=== PATIENT | male | born 1955 | race Caucasian/White ===

== ENCOUNTER 2019-12-15 13:00 | Inpatient (IN) | payer OTHER, MEDICARE, SELFPAY ==
[2019-12-15] VITALS (7 sets, daily range): BP systolic 117–141; BP diastolic 61–83; PULSE 20–100; RESP 15–20; TEMP 36.7–38.2; O2SAT 95–99
--- NOTE | ~2019-12-15 | XR_ITS ---
EXAMINATION: XR chest 2V DATE: 12/17/2019 13:39 INDICATION: Shortness of breath. TECHNIQUE: Frontal and lateral views of the chest were obtained. COMPARISON: Chest single view 04/11/2011 FINDINGS: There is a diffuse interstitial pattern in the lungs, consistent with mild pulmonary edema. There is a small left pleural effusion. No pneumothorax. The heart size is normal. Median sternotomy wires and mediastinal surgical clips are seen, likely from prior coronary artery bypass grafting. IMPRESSION: 1. Mild pulmonary edema. 2. Small left pleural effusion. Reviewed, dictated and finalized at location B. [place] WAREHOUSE SUPERVISOR
--- NOTE | ~2019-12-15 | XR_ITS ---
EXAMINATION: XR foot RT min 3V DATE: 12/15/2019 14:23 INDICATION: Right foot pain and swelling, diabetic TECHNIQUE: Dorsoplantar, lateral, and 2 oblique views of the right foot were obtained. COMPARISON: None. FINDINGS: Bone alignment is normal. There is no fracture. There is mild osteoarthritis in the midfoot and at several interphalangeal joints. Plantar and Achilles enthesophytes are noted. The soft tissue s are unremarkable. IMPRESSION: 1. No acute osseous abnormality. Reviewed, dictated and finalized at location A. NSED MIDWIFE
--- NOTE | ~2019-12-15 | CT_ITS ---
EXAMINATION: CT foot RT w con EXAM DATE: 12/18/2019 13:00 INDICATION: Diabetic foot ulcer. TECHNIQUE: Spiral CT foot RT w con was performed following intravenous injection of 100 mL Omnipaque 350. Axial, coronal and sagittal images were reviewed. The dose-length product (DLP) for this exami nation was 409.52 mGy-cm. The exposure was tailored according to patient size (auto mA exposure cont rol), and iterative reconstruction (ASIR) was used as additional dose reduction technique. Correlatio n is made to X-ray 12/15/2019 FINDINGS: Distal most aspects of the right first-third toes were collimated off the examination as fo llows; the right first and third joy, the second distal phalanx. These did appear normal on the x-r ay obtained 2 days earlier but patient can be brought down to repeat scan if requested. There are no bony erosions identified. There are no acute fractures identified. There is mild polyart icular primary osteoarthritis. Other mild degenerative changes. No subcutaneous gas or radiopaque fo reign bodies. Edema over the entire foot without focal abscess. No evidence of venous thrombosis. IMPRESSION: Diffuse right foot edema without abscess or bony erosions. Reviewed, dictated and finalized at location A. GENERATION SPECIALIST
--- NOTE | 2019-12-15 13:49 | ED.WOUNDLAC ---
HPI - Wound/Laceration General Chief Complaint: Wound/Laceration Stated Complaint: R FOOT INFECTION, DIABETIC Time Seen by Provider: 12/15/19 13:45 Source: patient and RN notes reviewed Mode of arrival: ambulatory Limitations: no limitations History of Present Illness HPI narrative: Pt is a 64 y/o male with a Hx of DM and peripheral neuropathy, who presents to the ED with c/o wound on his rt foot. He notes that he first noticed swelling and erythema around his rt foot earlier today. Pt reports an associated fever, but denies any CP, SOB, or lightheadedness. He notes that he is unsure of what his BS has been recently running. Location: other (rt foot) Extremity Location: Right: foot Associated symptoms: pain (pain around rt foot) Related Data Home Medications Medication Instructions Recorded Confirmed metformin 1,000 mg PO BID 12/15/19 Allergies Allergy/AdvReac Type Severity Reaction Status Date / Time No Known Allergies Allergy Mild Verified 12/15/19 15:07 Review of Systems Review of Systems: All systems reviewed & are unremarkable except as noted in HPI and below Cardiovascular: Cardiovascular: Denies chest pain Respiratory: Respiratory: Denies dyspnea Integumentary/Breasts: Skin/Breast: Reports erythema (around rt foot), Reports skin swelling (rt foot) and Reports wounds (wound on rt foot) Neurologic: Denies other (lightheadedness) PMFSH Past Medical History Medical History (Updated 12/15/19 @ 15:46 by Will Rodriguez MD) Anxiety Arthritis CAD (coronary artery disease) Depression Diabetes Heart attack Peripheral neuropathy Right arm fracture Social History Social History Alcohol intake: current Comments PCP is Dr. More. Exam Const: General: healthy appearing, no acute distress and alert Nutritional Appearance: well nourished Orientation/consciousness: patient oriented x3 HENMT: Head: normal to inspection Resp: Effort & Inspection: normal respiratory effort Auscultation: clear to auscultation bilaterally Cardio: Rate: regular rate Rhythm: regular rhythm GI: GI Palp: Yes Soft to palpation and No Tenderness to palpation present (GI) Neuro: General: patient oriented x3 and moves all extremities Speech: normal speech Other: Decreased sensation in feet bilaterally Extrem: Other: diffuse swelling in right foot most severe with erythema and induration over the lateral aspect. minimal plantar wound. No drainage. Trace edema in right lower leg Course Consultations Consultation #1: Discussed case with HEAD OF DIGITAL ADVERTISING & INTEGRATION to Hospitalist, Marisa Manzano. Advised to consult with Dr. Rodriguez. Date: 12/15/19 Time: 15:05 Consultation #2: Discussed case with general surgeon, Dr. Rodriguez. He will see the pt as a consult. Date: 12/15/19 Time: 15:13 Vital Signs Vital signs: Vital Signs Temperature 38.2 C H 12/15/19 13:24 Pulse Rate 20 L 12/15/19 13:24 Respiratory Rate 16 12/15/19 13:24 Blood Pressure 141/79 H 12/15/19 13:24 Pulse Oximetry 99 12/15/19 13:24 Temperature 37.2 C 12/15/19 15:00 Pulse Rate 97 12/15/19 15:00 Respiratory Rate 135 H 12/15/19 15:00 Blood Pressure 135/63 12/15/19 15:00 Pulse Oximetry 97 12/15/19 15:00 MDM - Wound/Laceration Lab Data Result diagrams: 12/15/19 14:17 12/15/19 14:17 Labs: Lab Results 12/15/19 12/15/19 12/15/19 Range/Units 14:17 14:17 14:17 WBC 13.3 H (4.5-10.0) K/mm3 RBC 3.93 L (4.6-6.20) M/mm3 Hgb 12.1 L (14.0-18.0) g/dL Hct 34.8 L (42.0-52.0) % MCV 88.5 (80-100) fl MCH 30.8 (26-34) pg MCHC 34.8 (32-36) g/dl RDW 12.7 (11.5-14.5) % Plt Count 198 (150-375) k/mm3 MPV 11.0 H (7.4-10.4) fl Immature Gran % (Auto) 0.5 (0-0.5) % Neut % (Auto) 82.2 H (45.5-73.1) % Lymph % (Auto) 6.0 L (18.3-44.2) % [place] % (Auto) 11.1 H (2.6-8.5) % Eos % (Auto) 0.0 (0-4.4) % Baso % (Auto)
[2019-12-15 14:25] LABS: Basophils Percent Auto 0.2 % (0.2-1.2); Hematocrit 34.8 % (42.0-52.0); Hemoglobin 12.1 g/dL (14.0-18.0); Immature Granulocyte Absolute 0.07 K/mm3 (0.00-0.031); Immature Granulocyte Percent A 0.5 % (0-0.5); Mean Corpuscular HGB Conc 34.8 g/dl (32-36); Mean Corpuscular Hemoglobin 30.8 pg (26-34); Mean Corpuscular Volume 88.5 fl (80-100); Monocytes Absolute Auto 1.5 K/mm3 (0.1-0.6); Monocytes Percent Auto 11.1 % (2.6-8.5); Neutrophils Absolute Auto 10.9 K/mm3 (1.3-6.7); Neutrophils Percent Auto 82.2 % (45.5-73.1); Platelet Count Result 198 k/mm3 (150-375); Red Blood Count 3.93 M/mm3 (4.6-6.20); Red Cell Distribution Width 12.7 % (11.5-14.5); White Blood Count 13.3 K/mm3 (4.5-10.0)
[2019-12-15 14:33] LABS: INR 1.1; Prothrombin Time 14.1 Seconds (11.1-14.7)
[2019-12-15 14:34] LABS: Partial Thromboplastin Time 28.3 SECONDS (22.3-36.8)
[2019-12-15 14:35] LABS: Lactic Acid Reflex 1.6 mmol/L (0.7-2.1)
[2019-12-15 14:52] LABS: Erythrocyte Sedimentation Rate 110 mm/hr (0-20)
[2019-12-15 14:53] LABS: Alanine Aminotransferase 19 U/L (4-50); Albumin Level 3.5 g/dL (3.5-5.1); Alkaline Phosphatase 138 U/L (38-126); Aspartate Amino Transferase 17 U/L (17-59); Bilirubin,Total 2.1 mg/dL (0.2-1.3); Blood Urea Nitrogen 13 mg/dL (9-20); Calcium 8.9 mg/dL (8.4-10.2); Carbon Dioxide 22 mmol/L (22-30); Chloride 88 mmol/L (98-107); Estimated CRCL calculation 88 ml/min; Estimated Glomerular Filt Rate > 60; Glucose 321 mg/dL (75-110); Potassium 4.1 mmol/L (3.4-5.0); Sodium 125 mmol/L (137-145)
[2019-12-15 15:00] LABS: CRP 19.1 mg/dL (<1.0)
[2019-12-15] MEDS: SODIUM CHLORIDE 0.9% IV 1,000 ML 999 ML IV CONT (15:21)
[2019-12-15] MEDS: MORPHINE SULFATE 2 MG/ML INJ IV PUSH (15:55)
--- NOTE | 2019-12-15 16:13 | PM.CNGS ---
Assessment and Plan Assessment and plan (1) Cellulitis of foot, right: Code(s): L03.115 - Cellulitis of right lower limb Status: Acute Assessment and Plan: The patient has significant cellulitis of the right lower extremity and foot and a small open wound that is on the plantar aspect of the lateral right foot. There is no purulent drainage noted on exam and nothing to culture at this time. There is no evidence of osteomyelitis on the x-ray. We will initiate local wound care with silver gel dressing changes daily and consult the wound care nurses to evaluate the patient tomorrow. There is no need for surgical intervention at this time. Continue IV antibiotics. He needs to keep his right leg elevated when at rest. Thank you for allowing me to evaluate the patient in consultation and we will continue to follow along with you. (2) Diabetes: Code(s): E11.9 - Type 2 diabetes mellitus without complications Status: Acute Assessment and Plan: The patient needs more education on appropriate foot care with diabetes, including interventions such as checking his feet daily, keeping them clean, not using random objects to treat his calluses, possibly seeing a Principal Database Developer regularly, getting Diabetic shoes, etc. He does live at home alone and cares for himself. He also will need good glycemic control to help with wound healing. (3) CAD (coronary artery disease): Code(s): I25.10 - Atherosclerotic heart disease of [place] coronary artery without angina pectoris Status: Acute Additional Plan Discussed the patient's case and plan of care with Dr. Rodriguez. History of Present Illness Consult details Consult date: 12/15/19 Reason for consult: wound care (Right foot wound with cellulitis) Requesting physician: Will Rodriguez MD Narrative: This is a 64-year-old diabetic male who has complaints of a right foot wound with redness, swelling, and pain. The patient reports having thick skin on his feet with multiple calluses that he tries to manage at home. Over a week ago he was picking at a callus and pulled a piece of skin off about the size of a quarter. He states that this spot then started bleeding and left an open area on his foot. A few days later he used sandpaper to the calluses on the bottom of his foot. He also used a metal nail file to the bottom of this foot to try and bring down the calluses. His right foot started to feel tender a few days ago, but otherwise he he did not notice any other changes to his skin. This morning, when he looked at his feet he noticed swelling and redness. He then called his PCP's office and was evaluated there today. After evaluation, he was directed to the emergency department for further evaluation and IV antibiotics. In the ED, labs revealed a white blood cell count of 13,300 and a CRP of 19.1. Right foot x-ray showed no acute osseous abnormalities. The patient is being admitted to the hospitalist service for right lower extremity cellulitis and diabetic right foot wound. He was started on vancomycin and imipenem IV. Our service was consulted for surgical evaluation of the wound and recommendations on wound care. The patient is now being seen in the emergency department. He reports there is tenderness and some pain in his right foot. He states he 1st noted swelling and redness today. He reports having some chills at home but has not taken his temperature. He has also recently had associated nausea with eating, but no vomiting. Decreased appetite was reported. No other complaints at this time. He denies seeing a processing technologist. He reports having diabetic socks but does not wear diabetic shoes. He denies showering daily and does not look at his feet daily. Review of Systems Constitutional: Constitutional: Reports as per HPI, Reports chills, Denies excessive sweating, Denies fatigue, Denies fever(s) (Unknown), Reports poor appetite and Denies weakness Eyes: Eyes: Denies change
--- NOTE | 2019-12-15 17:08 | PM.PNGS ---
Progress Note: A&P Assessment and Plan (1) Cellulitis of foot, right: Code(s): L03.115 - Cellulitis of right lower limb Status: Acute Assessment and Plan: Does not appear to have osteomyelitis. No purulent drainage. Will start silver gel dressings and keep the right foot elevated. IV antibiotics will be given. Hopefully this will improve with minimal, if any, surgical intervention. (2) Diabetes: Code(s): E11.9 - Type 2 diabetes mellitus without complications Status: Chronic Assessment and Plan: Needs better diabetic control. Discussed with patient. Subjective Subjective Date/Time Seen: 12/15/19 17:08 patient is a 64-year-old diabetic man who has a lot of calluses on his feet. He was picking at a callus on the plantar surface over the 5th metatarsal when he pulled off some skin with subsequent bleeding. This left an open area. He also has use sandpaper in a nail file to try and smooth and reduce some of the calluses. He noticed this morning that his right foot was red and very swollen with red lines going up the foot. He came to the emergency room for evaluation. [place] [address]. His CRP is 19.1. Plain films of his right foot did not show osteomyelitis. He does note some tenderness of the foot over the 5th metatarsal. He has had some chills at home but really did not take his temperature. His appetite has been decreased and he did have some nausea but no vomiting. He was seen in the emergency room in consultation for diabetic foot infection. Review of Systems Review of Systems: All systems reviewed & are unremarkable except as noted in HPI and below Exam Extrem: Right lower extremity: foot Details: normal capillary refill, tenderness, warmth, edema, vascular exam Details: dorsalis pedis pulse present, posterior tibial pulse present and normal capillary refill and other ( Small ulcer right 5th metatarsal, no communication to bone, no purulent drainage.) Objective Data Vital Signs Vital Signs: Vital Signs - 24 hr 12/15/19 13:24 12/15/19 15:00 12/15/19 16:22 Temperature 38.2 C H 37.2 C 36.9 C Pulse Rate 20 L 97 93 Respiratory Rate 16 135 H 18 Blood Pressure 141/79 H 135/63 137/83 Pulse Oximetry 99 97 96 Meds/Results Medications: Active Medications Generic Name Dose Route Start Last Admin Trade Name Freq PRN Reason Stop Dose Admin Imipenem/Cilastatin Sodium 500 mg in 100 mls @ 300 mls/hr 12/15/19 17:00 Primaxin 500 Mg/D5w 100 Ml IVPB Q6HR NETTE Vancomycin HCl 1,750 mg in 500 mls @ 250 mls/hr 12/16/19 03:00 Vancomycin 1,750 Mg/D5w 500 Ml IVPB Q12H NETTE Acetaminophen 1,000 mg in 100 mls @ 400 mls/hr 12/15/19 15:16 Ofirmev 1,000 Mg Ivpb IVPB 12/16/19 15:17 Q6H PRN Mild Pain (1-3) or Fever Lactated Ringer's 1,000 mls @ 125 mls/hr 12/15/19 15:20 Lr - Lactated Ringers Iv IV CONT .Q8H NETTE Morphine Sulfate 2 mg 12/15/19 15:16 Morphine Sulfate Inj IV PUSH Q2H PRN Pain Rated 7-10 Silver Nitrate 1 applic 12/16/19 09:00 Silvergel TOPICAL DAILY NETTE Radiology Results: ITS Impressions Foot X-Ray 12/15/19 14:37 IMPRESSION: 1. No acute osseous abnormality. Labs Labs: Laboratory Results - last 24 hr 12/15/19 12/15/19 12/15/19 14:17 14:17 14:17 WBC 13.3 H RBC 3.93 L Hgb 12.1 L Hct 34.8 L MCV 88.5 MCH 30.8 MCHC 34.8 RDW 12.7 Plt Count 198 MPV 11.0 H Immature Gran % (Auto) 0.5 Neut % (Auto) 82.2 H Lymph % (Auto) 6.0 L [place] % (Auto) 11.1 H Eos % (Auto) 0.0 Baso % (Auto) 0.2 Lymph # (Auto) 0.80 L [place] # (Auto) 1.5 H Eos # (Auto) 0.0 Baso # (Auto) 0.0 Abs Immat Gran (auto) 0.07 H Absolute Neuts (auto) 10.9 H Absolute Nucleated RBC 0.0 Nucleated RBC % 0.0 ESR 110 H PT 14.1 INR 1.1 APTT 28.3 Sodium 125 L Potassium 4.1 Chloride 88 L Car
[2019-12-15 18:17] LABS: Glucose Point of Care 320 (65-105)
[2019-12-15] MEDS: LACTATED RINGERS 1,000 ML 125 ML IV CONT (18:46)
--- NOTE | 2019-12-15 18:47 | ECG_ITS ---
Measurements Intervals [place] Rate: 99 P: -3 MS: 217 QRS: -81 QRSD: 180 T: 30 QT: 477 QTc: 613 Interpretive Statements SINUS RHYTHM WITH FIRST DEGREE AV BLOCK VENTRICULAR COUPLET AND FREQUENT VENTRICULAR PREMATURE COMPLEXES RIGHT BUNDLE BRANCH BLOCK ANTEROLATERAL INFARCT, AGE INDETERMINATE INFERIOR INFARCT, AGE INDETERMINATE ABNORMAL ECG Electronically Signed On 12-16-2019 6:43:37 COMPUTER ENGINEERING PROFESSOR by Leonides Gruber D.O.
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
[2019-12-15 19:18] LABS: Hemoglobin A1C 12.2 % (<5.7)
--- NOTE | 2019-12-15 20:01 | ADMGEN ---
This patient, Preston Morris, was admitted to [address] [facility] Surg Room 304-01. Patient/family oriented to hospital policies and general routines including ID bracelet, bed and alarms, visiting hours, pain management, procedures, bathroom and other care routines, personal items, smoking policy, room service/diet, and visiting hours. Valuables list has been completed. Information on how to activate the Rapid Response Team has been discussed. Patient/Family are encouraged to report perceived risks to care and to ask questions if they do not understand what they are told or what they should do.
[2019-12-15 20:57] LABS: Blood Urea Nitrogen 12 mg/dL (9-20); Calcium 8.7 mg/dL (8.4-10.2); Carbon Dioxide 24 mmol/L (22-30); Chloride 91 mmol/L (98-107); Estimated CRCL calculation 88 ml/min; Estimated Glomerular Filt Rate > 60; Glucose 339 mg/dL (75-110); Potassium 3.7 mmol/L (3.4-5.0); Sodium 125 mmol/L (137-145)
[2019-12-15 22:04] LABS: Glucose Point of Care 351 (65-105)
[2019-12-16] VITALS (10 sets, daily range): BP systolic 115–131; BP diastolic 61–76; PULSE 51–104; RESP 16–20; TEMP 36.6–37.3; O2SAT 94–98
--- NOTE | 2019-12-16 | ECHO_ITS ---
Patient Info Name: Preston Morris Age: 64 years : 1955 Gender: Male Ht: 71 in Wt: 230 lbs BSA: 2.32 m2 HR: 100 bpm BP: 131 / 76 mmHg Heart Rhythm: Sinus Arrhythmia Technical Quality: Good Exam Date: 12/16/2019 3:03 PM Exam Location: [facility] Pulmonary Patient Status: Inpatient Admit Date: 12/15/2019 Staff Ordering Physician: Luz Camacho PA-C Bowling Ball Weigher And Packer: Yuri Sanz RDCS Attending Provider: Luz Camacho PA-C Exam Type: CA echo dop color flow w con Study Info Indications I50.22 - Chronic systolic (congestive) heart failure R94.31 - Abnormal electrocardiogram ECG EKG Complete two-dimensional, color flow and Doppler transthoracic echocardiogram is performed with contrast to opacify the left ventricle and to improve the deliniation of the left ventricle endocardial borders. Strain analysis performed. Contrast/Agitated Saline Contrast/Ag. Saline: Definity Amount: 4.00 ml Administered By: Theo Watkins RN History/Risk Factors CHF; CAD/SC w/ 4vCABG, DM2, abnormal EKG. Summary 1. Left ventricular chamber dimension is moderately enlarged. 2. Left ventricular systolic function is severely reduced, estimated at 15-20%. 3. There is moderately increased left ventricular wall thickness. 4. The left ventricular diastolic function is abnormal. 5. Definity contrast administered improved wall motion interpretation. 6. E/e' 12 is mildly elevated. 7. Based on TAPSE 1.3 cm suggests right ventricular systolic function is reduced. 8. Left atrial chamber dimension is moderately enlarged. 9. Right atrial chamber dimension is mildly enlarged. 10. There is mild aortic valve sclerosis. 11. Mildly thickened mitral valve leaflets. 12. There is moderate mitral valve regurgitation. 13. There is mild tricuspid valve regurgitation. 14. No pulmonary hypertension, estimated pulmonary arterial systolic pressure is 36 mmHg. 15. There is trace pulmonic regurgitation. 16. Dilated inferior vena cava with <50% collapse upon inspiration consistent with significantly elevated right atrial pressure, 15 mmHg. Left Ventricle Definity contrast administered improved wall motion interpretation. E/e' 12 is mildly elevated. Left ventricular chamber dimension is moderately enlarged. Left ventricular systolic function is severely reduced, estimated at 15-20%. There is moderately increased left ventricular wall thickness. The left ventricular diastolic function is abnormal. Right Ventricle Based on TAPSE 1.3 cm suggests right ventricular systolic function is reduced. Right ventricular chamber dimension is normal. Left Atria Left atrial chamber dimension is moderately enlarged. Right Atria Right atrial chamber dimension is mildly enlarged. Aortic Valve The aortic valve is trileaflet. There is mild aortic valve sclerosis. There is no aortic valve stenosis. There is no aortic valve regurgitation. Pulmonic Valve There is trace pulmonic regurgitation. Mitral Valve Mildly thickened mitral valve leaflets. There is no mitral valve stenosis. There is moderate mitral valve regurgitation. Tricuspid Valve There is mild tricuspid valve regurgitation. No pulmonary hypertension, estimated pulmonary arterial systolic pressure is 36 mmHg. Pericardium/Pleural There is no pericardial effusion. Inferior Vena Cava Dilated inferior vena cava with <50% collapse upon inspiration consistent with significantly el
[2019-12-16] MEDS: INSULIN ASPART (*BKC) 100 UNITS/ML 6 UNITS SUB-Q (00:15)
[2019-12-16] MEDS: LACTATED RINGERS 1,000 ML 125 ML IV CONT (02:02)
[2019-12-16 02:58] LABS: Sodium Urine Random 14 meq/L
[2019-12-16 06:37] LABS: Basophils Percent Auto 0.4 % (0.2-1.2); Eosinophils Percent Auto 0.2 % (0-4.4); Hematocrit 34.9 % (42.0-52.0); Immature Granulocyte Absolute 0.06 K/mm3 (0.00-0.031); Immature Granulocyte Percent A 0.6 % (0-0.5); Lymphocytes Absolute Auto 1.15 K/mm3 (0.9-3.2); Lymphocytes Percent Auto 11.3 % (18.3-44.2); Mean Corpuscular HGB Conc 34.4 g/dl (32-36); Mean Corpuscular Hemoglobin 30.3 pg (26-34); Mean Corpuscular Volume 88.1 fl (80-100); Mean Platelet Volume 11.1 fl (7.4-10.4); Monocytes Absolute Auto 1.3 K/mm3 (0.1-0.6); Monocytes Percent Auto 13.2 % (2.6-8.5); Neutrophils Absolute Auto 7.6 K/mm3 (1.3-6.7); Neutrophils Percent Auto 74.3 % (45.5-73.1); Platelet Count Result 173 k/mm3 (150-375); Red Blood Count 3.96 M/mm3 (4.6-6.20); Red Cell Distribution Width 12.6 % (11.5-14.5); White Blood Count 10.2 K/mm3 (4.5-10.0)
[2019-12-16 06:59] LABS: Alanine Aminotransferase 20 U/L (4-50); Alkaline Phosphatase 139 U/L (38-126); Aspartate Amino Transferase 22 U/L (17-59); Bilirubin,Total 1.3 mg/dL (0.2-1.3); Blood Urea Nitrogen 11 mg/dL (9-20); Calcium 8.5 mg/dL (8.4-10.2); Carbon Dioxide 24 mmol/L (22-30); Chloride 92 mmol/L (98-107); Estimated CRCL calculation 88 ml/min; Estimated Glomerular Filt Rate > 60; Glucose 295 mg/dL (75-110); Magnesium 1.8 mg/dL (1.6-2.3); Potassium 3.7 mmol/L (3.4-5.0); Sodium 128 mmol/L (137-145)
--- NOTE | 2019-12-16 08:22 | PM.PNGS ---
Progress Note: A&P Assessment and Plan (1) Diabetic foot infection: Code(s): E11.628 - Type 2 diabetes mellitus with other skin complications; L08.9 - Local infection of the skin and subcutaneous tissue, unspecified Status: Acute Assessment and Plan: continue IV antibiotics. Keep right leg elevated. Lower leg and ankle are clearly improved from last night but forefoot and 5th metatarsal area are still quite red and swollen. Patient has good blood supply to the right foot. No evidence of osteomyelitis on plain films. Continue present treatment. Should resolve. (2) Diabetic foot ulcer: Code(s): E11.621 - Type 2 diabetes mellitus with foot ulcer; L97.509 - Non-pressure chronic ulcer of other part of unspecified foot with unspecified severity Status: Chronic Assessment and Plan: Wound nurses to see today. Keep right foot elevated. Continue silver gel dressings unless wound nurses recommend changes. Will eventually need Podiatry and orthotics. Does not appear to involve osteomyelitis. No plans for debridement at present. Subjective Subjective Date/Time Seen: 12/16/19 08:22 Right foot feels a little better. No new complaints or problems Review of Systems Review of Systems: All systems reviewed & are unremarkable except as noted in HPI and below Exam Const: General: cooperative, comfortable, no acute distress, alert and awake Nutritional Appearance: average body habitus Orientation/consciousness: patient oriented x3 Extrem: Right lower extremity: lower leg ( less edematous and swollen this morning.) Details: pitting edema ( Decreased) Details: 1+; no unusual warmth and foot Details: normal capillary refill and abnormal to inspection ( forefoot still swollen; more redness laterally associated with 5th metatarsal) Details: erythematous Psych: Speech and movement: Clear speech present Affect: normal affect Attitude: cooperative Thought process: Normal thought process present Thought content: Yes Normal thought content present Insight: Good insight present (Psych) Judgement: Good judgement present (Psych) Objective Data Vital Signs Vital Signs: Vital Signs - 24 hr 12/15/19 13:24 12/15/19 15:00 12/15/19 16:22 Temperature 38.2 C H 37.2 C 36.9 C Pulse Rate 20 L 97 93 Respiratory Rate 16 135 H 18 Blood Pressure 141/79 H 135/63 137/83 Pulse Oximetry 99 97 96 12/15/19 19:46 12/15/19 20:00 12/15/19 20:36 Temperature 37.1 C Pulse Rate 98 99 100 Respiratory Rate 20 Blood Pressure 121/61 Pulse Oximetry 95 12/15/19 22:00 12/16/19 00:00 12/16/19 04:00 Temperature 36.7 C Pulse Rate 99 97 96 Respiratory Rate 18 Blood Pressure 117/65 Pulse Oximetry 95 12/16/19 05:59 Temperature 37.1 C Pulse Rate 96 Respiratory Rate 20 Blood Pressure 131/76 Pulse Oximetry 94 Intake/Output Intake/Output: Intake & Output 12/13/19 12/14/19 12/15/19 12/16/19 23:59 23:59 23:59 23:59 Intake Total 840 3013 Output Total 1500 Balance 840 1513 Meds/Results Medications: Active Medications Generic Name Dose Route Start Last Admin Trade Name Freq PRN Reason Stop Dose Admin Acetaminophen 500 mg 12/16/19 08:18 Tylenol Tablet PO Q6H PRN Mild Pain (1-3) or Fever Hydrocodone Bitart/Acetaminophen 1 tab 12/16/19 08:18 [place] 5-325 Mg PO Q4H PRN Pain Rated 4-6 Dextrose 12.5 gm 12/15/19 18:51 Dextrose 50% Syringe IV PUSH PRN PRN Hypoglycemia Protocol Enoxaparin Sodium 40 mg 12/16/19 09:00 Lovenox SUB-Q DAILY NETTE Glucagon 1 mg 12/15/19 18:51 Glucagon For Inj IM PRN PRN Hypoglycemia Protocol Glucose 15 gm 12/15/19 18:51 Glutose 15 PO PRN PRN Hypoglycemia Protocol Imipenem/Cilastatin Sodium 500 mg in 100 mls @ 300 mls/hr 12/15/19 17:00 12/16/19 06:58 Primaxin 500 Mg/D5w 100 Ml IVPB Infused Q6HR NETTE Infusion Vancomycin HCl 1,750 mg in 5
[2019-12-16 08:26] LABS: Glucose Point of Care 310 (65-105)
[2019-12-16] MEDS: INSULIN ASPART (*BKC) 100 UNITS/ML SUB-Q ×5 (09:24→18:07)
[2019-12-16] MEDS: ENOXAPARIN 40 MG/0.4 ML SYRINGE SUB-Q (09:31)
[2019-12-16] MEDS: PANTOPRAZOLE 40 MG TABLET PO (09:31)
[2019-12-16] MEDS: SILVERGEL (ELTA) 45 ML 1 APPLIC TOPICAL (09:32)
--- NOTE | 2019-12-16 12:14 | PM.IMPN ---
Progress Note: A&P Assessment and Plan (1) Cellulitis of foot, right: Code(s): L03.115 - Cellulitis of right lower limb Status: Deleted Assessment and Plan: ----Will continue imipenem and vancomycin as the patient is improving. Blood cultures are pending. Pt has been afebrile today so far. Surgical consult has been placed and Dr. de los santos has already seen the patient and recommends continuing abx. Continue with IV antibiotics but will stop IV fluids. White count better today 10.2. No evidence of any osteomyelitis as per the x-ray. Instructed the patient that he needs to see a wine master every year and should not attempt to perform his foot care. He also needs to take better care of his DM and his regimen will be changing. Wound care consult was greatly be appreciated for type of dressing. Patient will need continue with wound care outpatient as he is not the most compliant patient. (2) Diabetes: Code(s): E11.9 - Type 2 diabetes mellitus without complications Status: Chronic Assessment and Plan: -----Patient has not been monitoring his blood sugars and his A1c is 12. He will be put on insulin therapy and I will consult the DM educator. (3) CAD (coronary artery disease): Code(s): I25.10 - Atherosclerotic heart disease of [place] coronary artery without angina pectoris Status: Acute Assessment and Plan: -----Artery disease with 2 stents and four-vessel CABG. He says he takes no medications and does not follow up with cardiology for no real reason. He thinks his last echo was 10 years ago. We had a long talk about his heart health and the severity of it since his EF was 25% 10 years ago. I am going to consult cardiology to help with this. I will start coreg and losartan. (4) Congestive heart failure: Code(s): I50.9 - Heart failure, unspecified Status: Chronic Assessment and Plan: ----See above. Consult cardiology (5) Peripheral neuropathy: Code(s): G62.9 - Polyneuropathy, unspecified Status: Chronic Assessment and Plan: ----Chronic. Needs to better control his diabetes. (6) Depression: Code(s): F32.9 - Major depressive disorder, single episode, unspecified Status: Chronic Assessment and Plan: ------Chronic. (7) Anxiety: Code(s): F41.9 - Anxiety disorder, unspecified Status: Chronic Assessment and Plan: -----chronic, in good spirits today. (8) Hyperlipidemia: Code(s): E78.5 - Hyperlipidemia, unspecified Status: Chronic Assessment and Plan: ------Continue with home medications when available. (9) Hyponatremia: Code(s): E87.1 - Hypo-osmolality and hyponatremia Status: Acute Assessment and Plan: ------Sodium is actually 133 once corrected for hyperglycemia. Hopfully this will improve once the patinet's glucose is more controlled. Time Spent With Patient Time with patient: 25 - 35 minutes Subjective Date/time seen: 12/16/19 12:14 Interval history: Pt is a 64-year-old male who presented emergency room for cellulitis of the right foot. Patient was seen today with family at bedside. He is not having much pain and he thinks the swelling and erythema has improved. Long talk with him about his telemetry and he said he had a quadruple bypass and a couple stents and takes no cardiac medications. When asked, he said he just simply did not follow-up with a closet builder due to ignorance . He said this was not due to financial reasons. He gets occasional shortness of breath when laying flat but is better when he sits up. He does not walk very often but does walk to the bathroom and the kitchen and does not have any shortness of breath or chest pain during that time. He cannot remember his last echo but 10 years ago he thinks his EF was 25%. He says he is not very good at controlling his diabetes and just takes metform
[2019-12-16 12:19] LABS: Glucose Point of Care 320 (65-105)
--- NOTE | 2019-12-16 12:52 | PCDIET ---
Nutrition Consult Complete: Pt current nutrition is DBCC. Nutrition recommendation: Agree Last recorded weight is 104.3 kg. Bowel Motility: Labs Reviewed: A1c 12.2 Meds Noted: Insulin, Protonix Additional Notes: Pt states he does not check BS. His A1c is 12.2. He eats sausage and donuts for breakfast, TV dinner for lunch, and balanced meal with protein for dinner. He is doing sugar substitutes. We reviewed where carbs are found and how they effect blood glucose. He did not know what had carbs. He states he will not label read. We discussed the fist method and limiting to 3 fistfuls of any carb food at each meal, and balancing that meal with protein. Handouts and contact info provided.
[2019-12-16] MEDS: MAGNESIUM SULF 2 GM/WATER 50ML 2 GM/50 ML BAG IVPB (13:25)
[2019-12-16] MEDS: ASPIRIN 81 MG ENTERIC TABLET PO (14:25)
[2019-12-16] MEDS: PERFLUTREN LIPID MICROSPHERES 1.5 ML VIAL DILUTED TO 10 ML TOTAL VOLUME IV PUSH (15:40)
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
[2019-12-16] MEDS: METOPROLOL SUCCINATE EXT REL 25 MG TABCR PO (16:36)
[2019-12-16] MEDS: FUROSEMIDE INJ 40 MG/4 ML VIAL IV PUSH (16:41)
[2019-12-16 16:57] LABS: Glucose Point of Care 245 (65-105)
[2019-12-16] MEDS: MORPHINE SULFATE 4 MG/ML INJ 2 MG IV PUSH (20:55)
[2019-12-16] MEDS: INSULIN GLARGINE (*BKC) 100 UNITS/ML 10 UNITS SUB-Q (21:07)
[2019-12-16 21:12] LABS: Glucose Point of Care 302 (65-105)
[2019-12-17] VITALS (11 sets, daily range): BP systolic 91–120; BP diastolic 46–69; PULSE 78–97; RESP 16–20; TEMP 36.6–37; O2SAT 91–97; BMI 32.1
[2019-12-17 02:21] LABS: Basophils Percent Auto 0.3 % (0.2-1.2); Eosinophils Percent Auto 0.3 % (0-4.4); Hematocrit 34.4 % (42.0-52.0); Hemoglobin 11.9 g/dL (14.0-18.0); Immature Granulocyte Absolute 0.04 K/mm3 (0.00-0.031); Immature Granulocyte Percent A 0.3 % (0-0.5); Lymphocytes Absolute Auto 1.21 K/mm3 (0.9-3.2); Lymphocytes Percent Auto 10.2 % (18.3-44.2); Mean Corpuscular HGB Conc 34.6 g/dl (32-36); Mean Corpuscular Hemoglobin 30.5 pg (26-34); Mean Corpuscular Volume 88.2 fl (80-100); Mean Platelet Volume 10.7 fl (7.4-10.4); Monocytes Absolute Auto 1.3 K/mm3 (0.1-0.6); Monocytes Percent Auto 10.8 % (2.6-8.5); Neutrophils Absolute Auto 9.3 K/mm3 (1.3-6.7); Neutrophils Percent Auto 78.1 % (45.5-73.1); Platelet Count Result 187 k/mm3 (150-375); Red Cell Distribution Width 12.5 % (11.5-14.5); White Blood Count 11.9 K/mm3 (4.5-10.0)
[2019-12-17 02:54] LABS: Cholesterol 183 mg/dL (0-200); HDL Direct 19 mg/dL; Magnesium 2.1 mg/dL (1.6-2.3); Phosphorus 3.2 mg/dL (2.5-4.5); Triglycerides 123 mg/dL (<150)
[2019-12-17 02:55] LABS: Blood Urea Nitrogen 12 mg/dL (9-20); Calcium 8.5 mg/dL (8.4-10.2); Carbon Dioxide 26 mmol/L (22-30); Chloride 91 mmol/L (98-107); Estimated CRCL calculation 88 ml/min; Estimated Glomerular Filt Rate > 60; Glucose 289 mg/dL (75-110); Potassium 3.7 mmol/L (3.4-5.0); Sodium 127 mmol/L (137-145)
[2019-12-17 02:58] LABS: Vancomycin Trough 11.7 ug/mL (10.0-20.0)
[2019-12-17 03:05] LABS: LDL Cholesterol Direct 150 mg/dL
--- NOTE | 2019-12-17 07:52 | PM.PNCARD ---
Progress Note: A&P Assessment and Plan (1) Hypertension: Code(s): I10 - Essential (primary) hypertension Status: Acute Assessment and Plan: Stable. (2) CAD (coronary artery disease), autologous vein bypass graft: Code(s): I25.810 - Atherosclerosis of coronary artery bypass graft(s) without angina pectoris Status: Acute (3) Hyperlipidemia: Code(s): E78.5 - Hyperlipidemia, unspecified Status: Chronic Assessment and Plan: Advise to maintain a low saturated fat diet. 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 D/C IVF. Started on Losartan and Toprol this hospitalization. Being treated for cellulitis, DM ulcer. Will need outpatient nuclear stress test to assess coronaries and bypass vessels. Order Life Vest and see if he is interested. Advised that it would protect him against sudden cardiac arrest. Change Lasix 40 mg PO BID with KCl 20 meq BID. Subjective Date/time seen: 12/17/19 07:52 Reports breathing is better since started on Lasix. Denies chest pain. Exam Const: General: comfortable and no acute distress Neck: Neck: no JVD Resp: Auscultation: clear to auscultation bilaterally, no crackles, no rales, no rhonchi and no wheezes Cardio: Rate: regular rate Rhythm: regular rhythm Heart sounds: no murmurs GI: Inspection: non-distended Neuro: Speech: normal speech Extrem: Right lower extremity: edema Left lower extremity: edema Other: Mild-mod edema of legs Objective Data Vital Signs Vital Signs: Vital Signs - 24 hr 12/16/19 08:00 12/16/19 12:00 12/16/19 14:00 Temperature 99.2 F Pulse Rate 102 H 98 99 Respiratory Rate 16 Blood Pressure 115/61 Pulse Oximetry 98 12/16/19 16:00 12/16/19 16:36 12/16/19 20:00 Temperature 97.9 F Pulse Rate 93 99 95 Respiratory Rate 18 Blood Pressure 124/69 Pulse Oximetry 95 12/16/19 21:11 12/17/19 00:00 12/17/19 02:00 Temperature 98.2 F Pulse Rate 104 H 97 95 Respiratory Rate 18 Blood Pressure 112/59 L Pulse Oximetry 91 12/17/19 04:00 12/17/19 05:57 Temperature 98.0 F Pulse Rate 90 86 Respiratory Rate 16 Blood Pressure 120/65 Pulse Oximetry 95 Intake/Output Intake/Output: Intake & Output 12/14/19 12/15/19 12/16/19 12/17/19 23:59 23:59 23:59 23:59 Intake Total 840 4203 1450 Output Total 2700 800 Balance 840 1503 650 Meds/Results Medications: Active Medications Generic Name Dose Route Start Last Admin Trade Name Freq PRN Reason Stop Dose Admin Acetaminophen 500 mg 12/16/19 15:18 Tylenol Tablet PO Q6H PRN Mild Pain (1-3) or Fever Hydrocodone Bitart/Acetaminophen 1 tab 12/16/19 08:18 12/16/19 14:25 [place] 5-325 Mg PO 1 tab Q4H PRN Administration Pain Rated 4-6 Aspirin 81 mg 12/16/19 12:40 12/16/19 14:25 Aspirin Ec PO 81 mg QAM NETTE Administration Atorvastatin Calcium 40 mg 12/17/19 09:00 Lipitor PO DAILY NETTE Dextrose 12.5 gm 12/15/19 18:51 Dextrose 50% Syringe IV PUSH PRN PRN Hypoglycemia Protocol Enoxaparin Sodium 40 mg 12/16/19 09:00 12/16/19 09:31 Lovenox SUB-Q 40 mg DAILY NETTE Administration Furosemide 40 mg 12/16/19 17:00 12/16/19 16:41 Lasix Inj IV PUSH 40 mg BID NETTE Administration Glucagon 1 mg 12/15/19 18:51 Glucagon For Inj IM PRN PRN Hypoglycemia Protocol Glucose 15 gm 12/15/19 18:51 Glutose 15 PO PRN PRN Hypoglycemia Protocol Imipenem/Cilastatin Sodium 500 mg in 100 mls @ 300 mls/hr 12/15/19 17:00 12/17/19 06:16 Primaxin 500 Mg/D5w 100 Ml IVPB Infused Q6HR NETTE Infusion Dextrose 1,000 mls @ 100 mls/hr 12/15/19 18:51 Dextrose 5% 1,000 Ml IVPB PRN PRN Hypoglycemia
--- NOTE | 2019-12-17 09:13 | PM.PNGS ---
Progress Note: A&P Assessment and Plan (1) Diabetic foot infection: Code(s): E11.628 - Type 2 diabetes mellitus with other skin complications; L08.9 - Local infection of the skin and subcutaneous tissue, unspecified Status: Acute Assessment and Plan: Responding slowly to antibiotics and leg elevation. Still a lot of erythema and swelling on the distal and lateral forefoot. Ulcer looks about the same. Erythema may be less intense. (2) Diabetic foot ulcer: Code(s): E11.621 - Type 2 diabetes mellitus with foot ulcer; L97.509 - Non-pressure chronic ulcer of other part of unspecified foot with unspecified severity Status: Chronic Assessment and Plan: No change. Continue silver gel dressing changes. Subjective Subjective Date/Time Seen: 12/17/19 09:13 Right foot feels about the same as it did yesterday. No new problems or complaints. Review of Systems Constitutional: Constitutional: Denies chills and Denies fever(s) Exam Extrem: Right lower extremity: foot ( Still very erythematous lateral forefoot with edema) Details: tenderness Location: of the plantar foot ( 5th metatarsal, mild tenderness.) and of the lateral foot Location: distally ( Ulcer looks about the same.), toes with normal ROM, warmth, edema and other ( erythema) Objective Data Vital Signs Vital Signs: Vital Signs - 24 hr 12/16/19 12:00 12/16/19 14:00 12/16/19 16:00 Temperature 37.3 C Pulse Rate 98 99 93 Respiratory Rate 16 Blood Pressure 115/61 Pulse Oximetry 98 12/16/19 16:36 12/16/19 20:00 12/16/19 21:11 Temperature 36.6 C Pulse Rate 99 95 104 H Respiratory Rate 18 Blood Pressure 124/69 Pulse Oximetry 95 12/17/19 00:00 12/17/19 02:00 12/17/19 04:00 Temperature 36.8 C Pulse Rate 97 95 90 Respiratory Rate 18 Blood Pressure 112/59 L Pulse Oximetry 91 12/17/19 05:57 Temperature 36.7 C Pulse Rate 86 Respiratory Rate 16 Blood Pressure 120/65 Pulse Oximetry 95 Intake/Output Intake/Output: Intake & Output 12/14/19 12/15/19 12/16/19 12/17/19 23:59 23:59 23:59 23:59 Intake Total 840 4203 1450 Output Total 2700 800 Balance 840 1503 650 Meds/Results Medications: Active Medications Generic Name Dose Route Start Last Admin Trade Name Freq PRN Reason Stop Dose Admin Acetaminophen 500 mg 12/16/19 15:18 Tylenol Tablet PO Q6H PRN Mild Pain (1-3) or Fever Hydrocodone Bitart/Acetaminophen 1 tab 12/16/19 08:18 12/16/19 14:25 [place] 5-325 Mg PO 1 tab Q4H PRN Administration Pain Rated 4-6 Aspirin 81 mg 12/16/19 12:40 12/16/19 14:25 Aspirin Ec PO 81 mg QAM NETTE Administration Atorvastatin Calcium 40 mg 12/17/19 09:00 Lipitor PO DAILY NETTE Dextrose 12.5 gm 12/15/19 18:51 Dextrose 50% Syringe IV PUSH PRN PRN Hypoglycemia Protocol Enoxaparin Sodium 40 mg 12/16/19 09:00 12/16/19 09:31 Lovenox SUB-Q 40 mg DAILY NETTE Administration Furosemide 40 mg 12/16/19 17:00 12/16/19 16:41 Lasix Inj IV PUSH 40 mg BID NETTE Administration Glucagon 1 mg 12/15/19 18:51 Glucagon For Inj IM PRN PRN Hypoglycemia Protocol Glucose 15 gm 12/15/19 18:51 Glutose 15 PO PRN PRN Hypoglycemia Protocol Imipenem/Cilastatin Sodium 500 mg in 100 mls @ 300 mls/hr 12/15/19 17:00 12/17/19 06:16 Primaxin 500 Mg/D5w 100 Ml IVPB Infused Q6HR NETTE Infusion Dextrose 1,000 mls @ 100 mls/hr 12/15/19 18:51 Dextrose 5% 1,000 Ml IVPB PRN PRN Hypoglycemia Protocol Vancomycin HCl 2,000 mg in 500 mls @ 250 mls/hr 12/17/19 13:00 Vancomycin 2,000 Mg/D5w 500 Ml IVPB Q12H NETTE Insulin Aspart 2 - 5 units 12/16/19 12:00 12/16/19 18:07 Novolog SUB-Q 2 units TIDWM NETTE Administration Protocol Insulin Aspart 5 units 12/16/19 12:00 12/16/19 18:07 Novolog 0.05 units/kg (5 units) 5 units SUB-Q Administration
[2019-12-17] MEDS: INSULIN ASPART (*BKC) 100 UNITS/ML SUB-Q ×4 (09:38→17:22)
[2019-12-17] MEDS: POTASSIUM CHLORIDE 20 MEQ TABLET.ER PO ×2 (09:40→17:22)
[2019-12-17] MEDS: ATORVASTATIN 40 MG TABLET PO (09:40)
[2019-12-17] MEDS: LOSARTAN POTASSIUM 25 MG TABLET PO (09:40)
[2019-12-17] MEDS: ASPIRIN 81 MG ENTERIC TABLET PO (09:40)
[2019-12-17] MEDS: PANTOPRAZOLE 40 MG TABLET PO (09:40)
[2019-12-17] MEDS: ENOXAPARIN 40 MG/0.4 ML SYRINGE SUB-Q (09:40)
[2019-12-17] MEDS: SILVERGEL (ELTA) 45 ML 1 APPLIC TOPICAL (09:41)
[2019-12-17] MEDS: METOPROLOL SUCCINATE EXT REL 25 MG TABCR PO (09:41)
[2019-12-17 09:46] LABS: Glucose Point of Care 400 (65-105)
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
[2019-12-17 11:32] LABS: Glucose Point of Care 351 (65-105)
[2019-12-17] MEDS: FUROSEMIDE 40 MG TABLET PO (11:50)
[2019-12-17] MEDS: polyethylene glycoL 3350 17 GM POWD.PACK PO (11:52)
[2019-12-17] MEDS: MORPHINE SULFATE 4 MG/ML INJ 2 MG IV PUSH ×2 (12:03→17:27)
[2019-12-17 12:52] LABS: Glucose Point of Care 316 (65-105)
[2019-12-17] MEDS: INSULIN ASPART (*BKC) 100 UNITS/ML 6 UNITS SUB-Q ×2 (13:57→17:23)
[2019-12-17 18:00] LABS: Glucose Point of Care 308 (65-105)
[2019-12-17] MEDS: FUROSEMIDE INJ 40 MG/4 ML VIAL IV PUSH (18:50)
[2019-12-17] MEDS: INSULIN GLARGINE (*BKC) 100 UNITS/ML 14 UNITS SUB-Q (22:29)
[2019-12-17 22:37] LABS: Glucose Point of Care 211 (65-105)
[2019-12-18] VITALS (11 sets, daily range): BP systolic 104–120; BP diastolic 67–72; PULSE 83–102; RESP 16–20; TEMP 36.4–37.4; O2SAT 93–95
[2019-12-18] MEDS: MORPHINE SULFATE 4 MG/ML INJ 2 MG IV PUSH ×2 (03:34→11:02)
[2019-12-18 06:37] LABS: Alanine Aminotransferase 52 U/L (4-50); Albumin Level 2.8 g/dL (3.5-5.1); Alkaline Phosphatase 181 U/L (38-126); Aspartate Amino Transferase 44 U/L (17-59); Bilirubin,Total 0.8 mg/dL (0.2-1.3); Blood Urea Nitrogen 13 mg/dL (9-20); Calcium 8.3 mg/dL (8.4-10.2); Carbon Dioxide 28 mmol/L (22-30); Chloride 89 mmol/L (98-107); Estimated CRCL calculation 88 ml/min; Estimated Glomerular Filt Rate > 60; Glucose 199 mg/dL (75-110); Potassium 3.7 mmol/L (3.4-5.0); Sodium 125 mmol/L (137-145)
[2019-12-18 06:46] LABS: NT Pro B Type Natriuretic Pept 3650 PG/ML (5-100)
[2019-12-18 08:15] LABS: Glucose Point of Care 219 (65-105)
--- NOTE | 2019-12-18 08:57 | PM.PNCARD ---
Progress Note: A&P Assessment and Plan (1) Hypertension: Code(s): I10 - Essential (primary) hypertension Status: Acute Assessment and Plan: Stable. (2) CAD (coronary artery disease), autologous vein bypass graft: Code(s): I25.810 - Atherosclerosis of coronary artery bypass graft(s) without angina pectoris Status: Acute (3) Hyperlipidemia: Code(s): E78.5 - Hyperlipidemia, unspecified Status: Chronic Assessment and Plan: Advise to maintain a low saturated fat diet. 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 D/C IVF. Started on Losartan and Toprol this hospitalization. Being treated for cellulitis, DM ulcer. Will need outpatient nuclear stress test to assess coronaries and bypass vessels. Order Life Vest and see if he is interested. Advised that it would protect him against sudden cardiac arrest. On Lasix 40 mg IV BID. Change Lasix 40 mg PO BID with KCl 20 meq BID upon discharge. F/U with me in 1 week. Subjective Date/time seen: 12/18/19 08:57 Reports he feels anxious when lying down and morphine helps with that. Denies chest pain or sob. Mild edema of legs. Exam Const: General: comfortable and no acute distress Neck: Neck: no JVD Resp: Auscultation: clear to auscultation bilaterally, no crackles, no rales, no rhonchi and no wheezes Cardio: Rate: regular rate Rhythm: regular rhythm Heart sounds: no murmurs Neuro: Speech: normal speech Extrem: Right lower extremity: edema Left lower extremity: edema Other: Mild edema of both legs Objective Data Vital Signs Vital Signs: Vital Signs - 24 hr 12/17/19 09:41 12/17/19 12:00 12/17/19 14:00 Temperature 97.8 F Pulse Rate 86 92 78 Respiratory Rate 16 Blood Pressure 91/46 L Pulse Oximetry 97 12/17/19 16:00 12/17/19 20:00 12/17/19 22:00 Temperature 98.6 F Pulse Rate 90 97 95 Respiratory Rate 20 Blood Pressure 110/69 Pulse Oximetry 92 12/18/19 00:00 12/18/19 04:00 12/18/19 06:33 Temperature 99.3 F Pulse Rate 87 88 83 Respiratory Rate 20 Blood Pressure 104/68 Pulse Oximetry 95 Intake/Output Intake/Output: Intake & Output 12/15/19 12/16/19 12/17/19 12/18/19 23:59 23:59 23:59 23:59 Intake Total 840 4203 2940 800 Output Total 2700 2400 800 Balance 840 1503 540 0 Meds/Results Medications: Active Medications Generic Name Dose Route Start Last Admin Trade Name Freq PRN Reason Stop Dose Admin Acetaminophen 500 mg 12/16/19 15:18 Tylenol Tablet PO Q6H PRN Mild Pain (1-3) or Fever Hydrocodone Bitart/Acetaminophen 1 tab 12/16/19 08:18 12/17/19 09:47 [place] 5-325 Mg PO 1 tab Q4H PRN Administration Pain Rated 4-6 Aspirin 81 mg 12/16/19 12:40 12/17/19 09:40 Aspirin Ec PO 81 mg QAM NETTE Administration Atorvastatin Calcium 40 mg 12/17/19 09:00 12/17/19 09:40 Lipitor PO 40 mg DAILY NETTE Administration Dextrose 12.5 gm 12/15/19 18:51 Dextrose 50% Syringe IV PUSH PRN PRN Hypoglycemia Protocol Enoxaparin Sodium 40 mg 12/16/19 09:00 12/17/19 09:40 Lovenox SUB-Q 40 mg DAILY NETTE Administration Furosemide 40 mg 12/17/19 17:00 12/17/19 18:50 Lasix Inj IV PUSH 40 mg BID NETTE Administration Glucagon 1 mg 12/15/19 18:51 Glucagon For Inj IM PRN PRN Hypoglycemia Protocol Glucose 15 gm 12/15/19 18:51 Glutose 15 PO PRN PRN Hypoglycemia Protocol Imipenem/Cilastatin Sodium 500 mg in 100 mls @ 300 mls/hr 12/15/19 17:00 12/18/19 06:53 Primaxin 500 Mg/D5w 100 Ml IVPB 300 mls/hr Q6HR NETTE Administration Dextrose 1,000 mls @ 100 mls/hr 12/15/19 18:51 Dextrose 5% 1,000 Ml IVPB PRN PRN Hypoglycemia Protocol Va
[2019-12-18] MEDS: INSULIN ASPART (*BKC) 100 UNITS/ML 6 UNITS SUB-Q ×3 (09:26→18:44)
[2019-12-18] MEDS: INSULIN ASPART (*BKC) 100 UNITS/ML SUB-Q ×2 (09:27→15:06)
[2019-12-18] MEDS: ASPIRIN 81 MG ENTERIC TABLET PO (09:38)
[2019-12-18] MEDS: METOPROLOL SUCCINATE EXT REL 25 MG TABCR PO (09:39)
[2019-12-18] MEDS: ATORVASTATIN 40 MG TABLET PO (09:39)
[2019-12-18] MEDS: FUROSEMIDE INJ 40 MG/4 ML VIAL IV PUSH ×2 (09:39→18:14)
[2019-12-18] MEDS: ENOXAPARIN 40 MG/0.4 ML SYRINGE SUB-Q (09:39)
[2019-12-18] MEDS: LOSARTAN POTASSIUM 25 MG TABLET PO (09:39)
[2019-12-18] MEDS: polyethylene glycoL 3350 17 GM POWD.PACK PO (09:40)
[2019-12-18] MEDS: PANTOPRAZOLE 40 MG TABLET PO (09:40)
[2019-12-18] MEDS: POTASSIUM CHLORIDE 20 MEQ TABLET.ER PO ×2 (09:40→18:14)
[2019-12-18 12:01] LABS: Glucose Point of Care 280 (65-105)
--- NOTE | 2019-12-18 13:11 | PM.PNGS ---
Progress Note: A&P Assessment and Plan (1) Diabetic foot ulcer: Code(s): E11.621 - Type 2 diabetes mellitus with foot ulcer; L97.509 - Non-pressure chronic ulcer of other part of unspecified foot with unspecified severity Status: Chronic Assessment and Plan: Will get CT of right foot today. Continue IV antibiotics and local wound care. (2) Congestive heart failure: Code(s): I50.9 - Heart failure, unspecified Status: Chronic Subjective Subjective Date/Time Seen: 12/18/19 13:11 Patient still has some pain on his lateral right foot. Afebrile. Exam Extrem: Other: Right foot with erythema along lateral aspect. Ulcer near right 5th metatarsal unchanged. No purulence drainage. Objective Data Vital Signs Vital Signs: Vital Signs - 24 hr 12/17/19 14:00 12/17/19 16:00 12/17/19 20:00 Temperature 36.6 C Pulse Rate 78 90 97 Respiratory Rate 16 Blood Pressure 91/46 L Pulse Oximetry 97 12/17/19 22:00 12/18/19 00:00 12/18/19 04:00 Temperature 37.0 C Pulse Rate 95 87 88 Respiratory Rate 20 Blood Pressure 110/69 Pulse Oximetry 92 12/18/19 06:33 12/18/19 09:33 12/18/19 09:39 Temperature 37.4 C Pulse Rate 83 88 88 Respiratory Rate 20 18 Blood Pressure 104/68 120/71 Pulse Oximetry 95 94 Intake/Output Intake/Output: Intake & Output 12/15/19 12/16/19 12/17/19 12/18/19 23:59 23:59 23:59 23:59 Intake Total 840 4203 2940 1040 Output Total 2700 2400 800 Balance 840 1503 540 240 Meds/Results Medications: Active Medications Generic Name Dose Route Start Last Admin Trade Name Freq PRN Reason Stop Dose Admin Acetaminophen 500 mg 12/16/19 15:18 Tylenol Tablet PO Q6H PRN Mild Pain (1-3) or Fever Hydrocodone Bitart/Acetaminophen 1 tab 12/16/19 08:18 12/17/19 09:47 [place] 5-325 Mg PO 1 tab Q4H PRN Administration Pain Rated 4-6 Aspirin 81 mg 12/16/19 12:40 12/18/19 09:38 Aspirin Ec PO 81 mg QAM NETTE Administration Atorvastatin Calcium 40 mg 12/17/19 09:00 12/18/19 09:39 Lipitor PO 40 mg DAILY NETTE Administration Dextrose 12.5 gm 12/15/19 18:51 Dextrose 50% Syringe IV PUSH PRN PRN Hypoglycemia Protocol Enoxaparin Sodium 40 mg 12/16/19 09:00 12/18/19 09:39 Lovenox SUB-Q 40 mg DAILY NETTE Administration Furosemide 40 mg 12/17/19 17:00 12/18/19 09:39 Lasix Inj IV PUSH 40 mg BID NETTE Administration Glucagon 1 mg 12/15/19 18:51 Glucagon For Inj IM PRN PRN Hypoglycemia Protocol Glucose 15 gm 12/15/19 18:51 Glutose 15 PO PRN PRN Hypoglycemia Protocol Imipenem/Cilastatin Sodium 500 mg in 100 mls @ 300 mls/hr 12/15/19 17:00 12/18/19 06:53 Primaxin 500 Mg/D5w 100 Ml IVPB 300 mls/hr Q6HR NETTE Administration Dextrose 1,000 mls @ 100 mls/hr 12/15/19 18:51 Dextrose 5% 1,000 Ml IVPB PRN PRN Hypoglycemia Protocol Vancomycin HCl 2,000 mg/ 500 ml in 500 mls @ 250 mls/hr 12/17/19 13:00 12/18/19 00:39 Sodium Chloride IVPB 250 mls/hr Q12H NETTE Administration Insulin Aspart 2 - 5 units 12/16/19 12:00 12/18/19 09:27 Novolog SUB-Q 2 units TIDWM NETTE Administration Protocol Insulin Aspart 6 units 12/17/19 11:27 12/18/19 09:26 Novolog SUB-Q 6 units TIDWM NETTE Administration Insulin Glargine 14 units 12/17/19 11:27 12/17/19 22:29 Lantus SUB-Q 14 units HS NETTE Administration Losartan Potassium 25 mg 12/17/19 09:00 12/18/19 09:39 Cozaar PO 25 mg QAM NETTE Administration Metoprolol Succinate 25 mg 12/16/19 12:40 12/18/19 09:39 Toprol Xl PO 25 mg QAM NETTE Administration Morphine Sulfate 1 mg 12/16/19 08:18 Morphine Sulfate Inj IV PUSH Q2H PRN Pain Rated 4-6 Morphine Sulfate 2 mg 12/16/19 08:18 12/18/19 11:02 Morphine Sulfate Inj IV PUSH 2 mg Q2H PRN Administration Pain Rated 7-10 Pantoprazole Sodium 40
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
[2019-12-18] MEDS: SILVERGEL (ELTA) 45 ML 1 APPLIC TOPICAL (13:47)
[2019-12-18 18:09] LABS: Glucose Point of Care 155 (65-105)
[2019-12-18 21:15] LABS: Glucose Point of Care 126 (65-105)
[2019-12-18] MEDS: INSULIN GLARGINE (*BKC) 100 UNITS/ML 14 UNITS SUB-Q (21:18)
[2019-12-19] VITALS (10 sets, daily range): BP systolic 104–124; BP diastolic 65–73; PULSE 80–99; RESP 16–18; TEMP 36.7–37.1; O2SAT 93–96
[2019-12-19 01:03] LABS: Vancomycin Trough 17.7 ug/mL (10.0-20.0)
[2019-12-19 03:53] LABS: Osmolality, Urine 470 mOsm/kg (50-1200)
[2019-12-19] MEDS: MORPHINE SULFATE 2 MG/ML INJ 1 MG IV PUSH (05:06)
[2019-12-19 06:18] LABS: Hematocrit 32.9 % (42.0-52.0); Hemoglobin 11.3 g/dL (14.0-18.0); Mean Corpuscular HGB Conc 34.3 g/dl (32-36); Mean Corpuscular Hemoglobin 30.1 pg (26-34); Mean Corpuscular Volume 87.5 fl (80-100); Mean Platelet Volume 10.6 fl (7.4-10.4); Platelet Count Result 229 k/mm3 (150-375); Red Blood Count 3.76 M/mm3 (4.6-6.20); Red Cell Distribution Width 12.5 % (11.5-14.5); White Blood Count 8.9 K/mm3 (4.5-10.0)
[2019-12-19 06:45] LABS: Blood Urea Nitrogen 11 mg/dL (9-20); Calcium 8.3 mg/dL (8.4-10.2); Carbon Dioxide 27 mmol/L (22-30); Chloride 90 mmol/L (98-107); Estimated CRCL calculation 99 ml/min; Estimated Glomerular Filt Rate > 60; Glucose 207 mg/dL (75-110); Potassium 3.6 mmol/L (3.4-5.0); Sodium 126 mmol/L (137-145)
[2019-12-19 07:52] LABS: Glucose Point of Care 196 (65-105)
--- NOTE | 2019-12-19 08:45 | PM.PNCARD ---
Progress Note: A&P Assessment and Plan (1) Hypertension: Code(s): I10 - Essential (primary) hypertension Status: Acute Assessment and Plan: Stable. (2) CAD (coronary artery disease), autologous vein bypass graft: Code(s): I25.810 - Atherosclerosis of coronary artery bypass graft(s) without angina pectoris Status: Acute (3) Hyperlipidemia: Code(s): E78.5 - Hyperlipidemia, unspecified Status: Chronic Assessment and Plan: Advise to maintain a low saturated fat diet. 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 D/C IVF. Started on Losartan and Toprol this hospitalization. Being treated for cellulitis, DM ulcer. Will need outpatient nuclear stress test to assess coronaries and bypass vessels. Order Life Vest and see if he is interested. Advised that it would protect him against sudden cardiac arrest. On Lasix 40 mg IV BID. Change Lasix 40 mg PO BID with KCl 20 meq daily. Start Spironolactone 12.5 mg daily. F/U with me in 1 week. Subjective Date/time seen: 12/19/19 08:45 Denies chest pain or sob. Mild edema of legs. He did not get his life vest yet. Exam Const: General: comfortable and no acute distress Neck: Neck: no JVD Cardio: Rate: regular rate Rhythm: regular rhythm Heart sounds: no murmurs GI: Inspection: non-distended Neuro: Speech: normal speech Extrem: Right lower extremity: edema Left lower extremity: edema Other: Mild edema of both legs Objective Data Vital Signs Vital Signs: Vital Signs - 24 hr 12/18/19 09:33 12/18/19 09:39 12/18/19 12:00 Temperature Pulse Rate 88 88 90 Respiratory Rate 18 Blood Pressure 120/71 Pulse Oximetry 94 12/18/19 14:00 12/18/19 16:00 12/18/19 20:00 Temperature 97.5 F L Pulse Rate 97 93 102 H Respiratory Rate 18 Blood Pressure 108/67 Pulse Oximetry 94 12/18/19 21:41 12/19/19 00:00 12/19/19 04:00 Temperature 99.1 F Pulse Rate 95 83 80 Respiratory Rate 16 Blood Pressure 112/72 Pulse Oximetry 93 12/19/19 06:00 Temperature 98.7 F Pulse Rate 85 Respiratory Rate 18 Blood Pressure 124/69 Pulse Oximetry 93 Intake/Output Intake/Output: Intake & Output 12/16/19 12/17/19 12/18/19 12/19/19 23:59 23:59 23:59 23:59 Intake Total 4203 2940 4220 1650 Output Total 2700 2400 2400 1475 Balance 2428 457 7182 175 Meds/Results Medications: Active Medications Generic Name Dose Route Start Last Admin Trade Name Freq PRN Reason Stop Dose Admin Acetaminophen 500 mg 12/16/19 15:18 Tylenol Tablet PO Q6H PRN Mild Pain (1-3) or Fever Hydrocodone Bitart/Acetaminophen 1 tab 12/16/19 08:18 12/17/19 09:47 [place] 5-325 Mg PO 1 tab Q4H PRN Administration Pain Rated 4-6 Aspirin 81 mg 12/16/19 12:40 12/18/19 09:38 Aspirin Ec PO 81 mg QAM NETTE Administration Atorvastatin Calcium 40 mg 12/17/19 09:00 12/18/19 09:39 Lipitor PO 40 mg DAILY NETTE Administration Dextrose 12.5 gm 12/15/19 18:51 Dextrose 50% Syringe IV PUSH PRN PRN Hypoglycemia Protocol Enoxaparin Sodium 40 mg 12/16/19 09:00 12/18/19 09:39 Lovenox SUB-Q 40 mg DAILY NETTE Administration Furosemide 40 mg 12/17/19 17:00 12/18/19 18:14 Lasix Inj IV PUSH 40 mg BID NETTE Administration Glucagon 1 mg 12/15/19 18:51 Glucagon For Inj IM PRN PRN Hypoglycemia Protocol Glucose 15 gm 12/15/19 18:51 Glutose 15 PO PRN PRN Hypoglycemia Protocol Imipenem/Cilastatin Sodium 500 mg in 100 mls @ 300 mls/hr 12/15/19 17:00 12/19/19 05:39 Primaxin 500 Mg/D5w 100 Ml IVPB Infused Q6HR NETTE Infusion Dextrose 1,000 mls @ 100 mls/hr 12/15/19 18:51 Dextrose 5% 1,000 Ml IVPB PRN PRN Hyp
[2019-12-19] MEDS: SILVERGEL (ELTA) 45 ML 1 APPLIC TOPICAL (09:00)
[2019-12-19] MEDS: ASPIRIN 81 MG ENTERIC TABLET PO (09:50)
[2019-12-19] MEDS: FUROSEMIDE 40 MG TABLET PO ×2 (09:51→17:48)
[2019-12-19] MEDS: ENOXAPARIN 40 MG/0.4 ML SYRINGE SUB-Q (09:51)
[2019-12-19] MEDS: ATORVASTATIN 40 MG TABLET PO (09:51)
[2019-12-19] MEDS: METOPROLOL SUCCINATE EXT REL 25 MG TABCR PO (09:52)
[2019-12-19] MEDS: LOSARTAN POTASSIUM 25 MG TABLET PO (09:52)
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
[2019-12-19] MEDS: SPIRONOLACTONE 12.5 MG TABLET PO (09:53)
[2019-12-19] MEDS: PANTOPRAZOLE 40 MG TABLET PO (09:53)
[2019-12-19] MEDS: polyethylene glycoL 3350 17 GM POWD.PACK PO (09:53)
[2019-12-19] MEDS: INSULIN ASPART (*BKC) 100 UNITS/ML 6 UNITS SUB-Q ×3 (10:01→18:44)
[2019-12-19 12:19] LABS: Glucose Point of Care 260 (65-105)
--- NOTE | 2019-12-19 12:48 | PM.PNGS ---
Progress Note: A&P Assessment and Plan (1) Diabetic foot ulcer: Qualifiers: Diabetic foot ulcer location: midfoot Diabetes mellitus type: type 2 Laterality: right Non-pressure ulcer stage: limited to breakdown of skin Qualified Code(s): E11.621 - Type 2 diabetes mellitus with foot ulcer; L97.411 - Non-pressure chronic ulcer of right heel and midfoot limited to breakdown of skin Code(s): E11.621 - Type 2 diabetes mellitus with foot ulcer; L97.509 - Non-pressure chronic ulcer of other part of unspecified foot with unspecified severity Status: Chronic Assessment and Plan: I reviewed the CT from yesterday. No signs of osteomyelitis. Will continue antibiotics and local wound care. Foot elevation and control of lower extremity edema will also help. (2) Congestive heart failure: Qualifiers: Heart failure type: systolic Heart failure chronicity: acute on chronic Qualified Code(s): I50.23 - Acute on chronic systolic (congestive) heart failure Code(s): I50.9 - Heart failure, unspecified Status: Chronic Subjective Subjective Date/Time Seen: 12/19/19 12:48 Not complaining of much pain. Denies any drainage from foot wound. Exam Skin: Other: Right lateral plantar foot wound without any significant drainage. Edema and mild erythema to forefoot. Objective Data Vital Signs Vital Signs: Vital Signs - 24 hr 12/18/19 14:00 12/18/19 16:00 12/18/19 20:00 Temperature 36.4 C L Pulse Rate 97 93 102 H Respiratory Rate 18 Blood Pressure 108/67 Pulse Oximetry 94 12/18/19 21:41 12/19/19 00:00 12/19/19 04:00 Temperature 37.3 C Pulse Rate 95 83 80 Respiratory Rate 16 Blood Pressure 112/72 Pulse Oximetry 93 12/19/19 06:00 12/19/19 09:52 12/19/19 09:54 Temperature 37.1 C 36.9 C Pulse Rate 85 88 84 Respiratory Rate 18 16 Blood Pressure 124/69 113/65 Pulse Oximetry 93 94 Intake/Output Intake/Output: Intake & Output 12/16/19 12/17/19 12/18/19 12/19/19 23:59 23:59 23:59 23:59 Intake Total 4203 2940 4220 1650 Output Total 2700 2400 2400 1475 Balance 9114 830 1278 175 Meds/Results Medications: Active Medications Generic Name Dose Route Start Last Admin Trade Name Freq PRN Reason Stop Dose Admin Acetaminophen 500 mg 12/16/19 15:18 Tylenol Tablet PO Q6H PRN Mild Pain (1-3) or Fever Hydrocodone Bitart/Acetaminophen 1 tab 12/16/19 08:18 12/17/19 09:47 [place] 5-325 Mg PO 1 tab Q4H PRN Administration Pain Rated 4-6 Aspirin 81 mg 12/16/19 12:40 12/19/19 09:50 Aspirin Ec PO 81 mg QAM NETTE Administration Atorvastatin Calcium 40 mg 12/17/19 09:00 12/19/19 09:51 Lipitor PO 40 mg DAILY NETTE Administration Dextrose 12.5 gm 12/15/19 18:51 Dextrose 50% Syringe IV PUSH PRN PRN Hypoglycemia Protocol Enoxaparin Sodium 40 mg 12/16/19 09:00 12/19/19 09:51 Lovenox SUB-Q 40 mg DAILY NETTE Administration Furosemide 40 mg 12/19/19 09:00 12/19/19 09:51 Lasix Tablet PO 40 mg BID NETTE Administration Glucagon 1 mg 12/15/19 18:51 Glucagon For Inj IM PRN PRN Hypoglycemia Protocol Glucose 15 gm 12/15/19 18:51 Glutose 15 PO PRN PRN Hypoglycemia Protocol Imipenem/Cilastatin Sodium 500 mg in 100 mls @ 300 mls/hr 12/15/19 17:00 12/19/19 12:36 Primaxin 500 Mg/D5w 100 Ml IVPB 300 mls/hr Q6HR NETTE Administration Dextrose 1,000 mls @ 100 mls/hr 12/15/19 18:51 Dextrose 5% 1,000 Ml IVPB PRN PRN Hypoglycemia Protocol Vancomycin HCl 2,000 mg/ 500 ml in 500 mls @ 250 mls/hr 12/17/19 13:00 12/19/19 04:09 Sodium Chloride IVPB Infused Q12H NETTE Infusion Insulin Aspart 2 - 5 units 12/16/19 12:00 12/19/19 09:40 Novolog SUB-Q Not Given TIDWM NETTE Protocol Insulin Aspart 6 units 12/17/19 11:27 12/19/19 10:01 Novolog SUB-Q 6 units TIDWM NETTE Administration Insulin Glargine
[2019-12-19] MEDS: INSULIN ASPART (*BKC) 100 UNITS/ML SUB-Q ×2 (13:20→18:44)
[2019-12-19 16:40] LABS: Glucose Point of Care 220 (65-105)
[2019-12-19] MEDS: INSULIN GLARGINE (*BKC) 100 UNITS/ML 14 UNITS SUB-Q (21:21)
[2019-12-19 21:24] LABS: Glucose Point of Care 208 (65-105)
[2019-12-20] VITALS (11 sets, daily range): BP systolic 114–130; BP diastolic 58–86; PULSE 83–90; RESP 16–18; TEMP 36.6–37.1; O2SAT 91–97
[2019-12-20 06:47] LABS: Blood Urea Nitrogen 10 mg/dL (9-20); Calcium 8.4 mg/dL (8.4-10.2); Carbon Dioxide 28 mmol/L (22-30); Chloride 91 mmol/L (98-107); Estimated CRCL calculation 99 ml/min; Estimated Glomerular Filt Rate > 60; Glucose 207 mg/dL (75-110); Potassium 3.5 mmol/L (3.4-5.0); Sodium 129 mmol/L (137-145)
[2019-12-20 07:14] LABS: Glucose Point of Care 211 (65-105)
--- NOTE | 2019-12-20 07:32 | PM.PNCARD ---
Progress Note: A&P Assessment and Plan (1) Hypertension: Code(s): I10 - Essential (primary) hypertension Status: Acute Assessment and Plan: Stable. (2) CAD (coronary artery disease), autologous vein bypass graft: Code(s): I25.810 - Atherosclerosis of coronary artery bypass graft(s) without angina pectoris Status: Acute (3) Hyperlipidemia: Code(s): E78.5 - Hyperlipidemia, unspecified Status: Chronic Assessment and Plan: Advise to maintain a low saturated fat diet. 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 Started on Losartan and Topro and Spironolactonel this hospitalization. Being treated for cellulitis, DM ulcer. Will need outpatient nuclear stress test to assess coronaries and bypass vessels. Order Life Vest and see if he is interested. Advised that it would protect him against sudden cardiac arrest. On Lasix 40 mg PO BID with KCl 20 meq daily. Increase KCl 20 meq BID. F/U with me in 1 week. Subjective Date/time seen: 12/20/19 07:32 Denies chest pain or sob. Mild edema of legs. Exam Const: General: comfortable and no acute distress Neck: Neck: no JVD Resp: Auscultation: clear to auscultation bilaterally, no crackles, no rales, no rhonchi and no wheezes Cardio: Rate: regular rate Rhythm: regular rhythm Heart sounds: no murmurs GI: Inspection: non-distended Neuro: Speech: normal speech Extrem: Right lower extremity: edema Left lower extremity: edema Other: Mild edema of legs with right>left Objective Data Vital Signs Vital Signs: Vital Signs - 24 hr 12/19/19 08:00 12/19/19 09:52 12/19/19 09:54 Temperature 98.4 F Pulse Rate 88 88 84 Respiratory Rate 16 Blood Pressure 113/65 Pulse Oximetry 94 12/19/19 14:00 12/19/19 16:00 12/19/19 22:00 Temperature 98.2 F 98.1 F Pulse Rate 90 99 91 Respiratory Rate 18 18 Blood Pressure 114/73 104/72 Pulse Oximetry 95 96 12/19/19 23:01 12/20/19 00:00 12/20/19 04:00 Temperature Pulse Rate 90 87 89 Respiratory Rate Blood Pressure Pulse Oximetry 12/20/19 06:00 Temperature 97.9 F Pulse Rate 89 Respiratory Rate 18 Blood Pressure 117/86 Pulse Oximetry 93 Intake/Output Intake/Output: Intake & Output 12/17/19 12/18/19 12/19/19 12/20/19 23:59 23:59 23:59 23:59 Intake Total 2940 4220 4720 1450 Output Total 2400 2400 1475 600 Balance 540 1820 3245 850 Meds/Results Medications: Active Medications Generic Name Dose Route Start Last Admin Trade Name Freq PRN Reason Stop Dose Admin Acetaminophen 500 mg 12/16/19 15:18 Tylenol Tablet PO Q6H PRN Mild Pain (1-3) or Fever Hydrocodone Bitart/Acetaminophen 1 tab 12/16/19 08:18 12/17/19 09:47 [place] 5-325 Mg PO 1 tab Q4H PRN Administration Pain Rated 4-6 Aspirin 81 mg 12/16/19 12:40 12/19/19 09:50 Aspirin Ec PO 81 mg QAM NETTE Administration Atorvastatin Calcium 40 mg 12/17/19 09:00 12/19/19 09:51 Lipitor PO 40 mg DAILY NETTE Administration Dextrose 12.5 gm 12/15/19 18:51 Dextrose 50% Syringe IV PUSH PRN PRN Hypoglycemia Protocol Enoxaparin Sodium 40 mg 12/16/19 09:00 12/19/19 09:51 Lovenox SUB-Q 40 mg DAILY NETTE Administration Furosemide 40 mg 12/19/19 09:00 12/19/19 17:48 Lasix Tablet PO 40 mg BID NETTE Administration Glucagon 1 mg 12/15/19 18:51 Glucagon For Inj IM PRN PRN Hypoglycemia Protocol Glucose 15 gm 12/15/19 18:51 Glutose 15 PO PRN PRN Hypoglycemia Protocol Imipenem/Cilastatin Sodium 500 mg in 100 mls @ 300 mls/hr 12/15/19 17:00 12/20/19 07:00 Primaxin 500 Mg/D5w 100 Ml IVPB Infused Q6HR NETTE Infusion Dextrose 1,000 mls @ 100 mls/hr 12/15/19 18:51
[2019-12-20 07:37] LABS: CRP 19.3 mg/dL (<1.0)
[2019-12-20] MEDS: INSULIN ASPART (*BKC) 100 UNITS/ML SUB-Q ×3 (07:56→17:10)
[2019-12-20] MEDS: INSULIN ASPART (*BKC) 100 UNITS/ML 6 UNITS SUB-Q ×2 (07:56→13:32)
[2019-12-20] MEDS: ENOXAPARIN 40 MG/0.4 ML SYRINGE SUB-Q (08:00)
[2019-12-20] MEDS: ATORVASTATIN 40 MG TABLET PO (08:00)
[2019-12-20] MEDS: ASPIRIN 81 MG ENTERIC TABLET PO (08:00)
[2019-12-20] MEDS: LOSARTAN POTASSIUM 25 MG TABLET PO (08:01)
[2019-12-20] MEDS: FUROSEMIDE 40 MG TABLET PO ×2 (08:01→17:14)
[2019-12-20] MEDS: METOPROLOL SUCCINATE EXT REL 25 MG TABCR PO (08:01)
[2019-12-20] MEDS: SPIRONOLACTONE 12.5 MG TABLET PO (08:02)
[2019-12-20] MEDS: POTASSIUM CHLORIDE 20 MEQ TABLET.ER PO ×2 (08:02→17:13)
[2019-12-20] MEDS: polyethylene glycoL 3350 17 GM POWD.PACK PO (08:02)
[2019-12-20] MEDS: PANTOPRAZOLE 40 MG TABLET PO (08:02)
--- NOTE | 2019-12-20 08:06 | PM.PNGS ---
Progress Note: A&P Assessment and Plan (1) Diabetic foot infection: Code(s): E11.628 - Type 2 diabetes mellitus with other skin complications; L08.9 - Local infection of the skin and subcutaneous tissue, unspecified Status: Acute Assessment and Plan: Making good progress. Can probably convert to oral antibiotics and be discharged on silver gel dressing changes. I would keep him off work for approximately a week. I can see him in the office at that time. He will also need podiatry follow-up after my office visit. 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 Dr. warren has been consulted. Await to see his recommendations for oral antibiotics. (2) Diabetic foot ulcer: Qualifiers: Diabetic foot ulcer location: midfoot Diabetes mellitus type: type 2 Laterality: right Non-pressure ulcer stage: limited to breakdown of skin Qualified Code(s): E11.621 - Type 2 diabetes mellitus with foot ulcer; L97.411 - Non-pressure chronic ulcer of right heel and midfoot limited to breakdown of skin Code(s): E11.621 - Type 2 diabetes mellitus with foot ulcer; L97.509 - Non-pressure chronic ulcer of other part of unspecified foot with unspecified severity Status: Chronic Assessment and Plan: Limited weight-bearing on discharge. Keep right foot elevated whenever sitting. Will need to see Podiatry for orthotics and off-loading. Will need to see them for general foot care as well. (3) Type 2 diabetes mellitus with diabetic neuropathy, unspecified: Code(s): E11.40 - Type 2 diabetes mellitus with diabetic neuropathy, unspecified Status: Acute Assessment and Plan: Expressed the need for good diabetic control to avoid recurrence of this infection and future foot infections. Subjective Subjective Date/Time Seen: 12/20/19 08:06 No new complaints. Thinks foot is looking better. Review of Systems Constitutional: Constitutional: Denies chills and Denies fever(s) Exam Extrem: Left lower extremity: foot Details: edema ( Less edema erythema much less intense.) Location: of the plantar foot Location: distally ( No purulent drainage from 5th metatarsal ulcer.) Objective Data Vital Signs Vital Signs: Vital Signs - 24 hr 12/19/19 09:52 12/19/19 09:54 12/19/19 14:00 Temperature 36.9 C 36.8 C Pulse Rate 88 84 90 Respiratory Rate 16 18 Blood Pressure 113/65 114/73 Pulse Oximetry 94 95 12/19/19 16:00 12/19/19 22:00 12/19/19 23:01 Temperature 36.7 C Pulse Rate 99 91 90 Respiratory Rate 18 Blood Pressure 104/72 Pulse Oximetry 96 12/20/19 00:00 12/20/19 04:00 12/20/19 06:00 Temperature 36.6 C Pulse Rate 87 89 89 Respiratory Rate 18 Blood Pressure 117/86 Pulse Oximetry 93 12/20/19 07:54 12/20/19 08:01 Temperature Pulse Rate 83 84 Respiratory Rate 18 Blood Pressure 116/58 L Pulse Oximetry 94 Intake/Output Intake/Output: Intake & Output 12/17/19 12/18/19 12/19/19 12/20/19 23:59 23:59 23:59 23:59 Intake Total 2940 4220 4720 1450 Output Total 2400 2400 1475 600 Balance 540 1820 3245 850 Meds/Results Medications: Active Medications Generic Name Dose Route Start Last Admin Trade Name Freq PRN Reason Stop Dose Admin Acetaminophen 500 mg 12/16/19 15:18 Tylenol Tablet PO Q6H PRN Mild Pain (1-3) or Fever Hydrocodone Bitart/Acetaminophen 1 tab 12/16/19 08:18 12/17/19 09:47 [place] 5-325 Mg PO 1 tab Q4H PRN Administration Pain Rated 4-6 Aspirin 81 mg 12/16/19 12:40 12/20/19 08:00 Aspirin Ec PO 81 mg QAM NETTE Administration Atorvastatin Calcium 40 mg 12/17/19 09:00 12/20/19 08:00 Lipitor PO 40 mg DAILY NETTE Administration Dextrose 12.5 gm 12/15/19 18:51 Dextrose 50% Syringe IV PUSH PRN PRN Hypoglycemia Protocol Enoxaparin Sodium 40 mg 12/16/19 09:00 12/20/19 08:00 Lovenox SUB-Q 40 mg DAILY NETTE Administration Furose
[2019-12-20] MEDS: SILVERGEL (ELTA) 45 ML 1 APPLIC TOPICAL (09:00)
--- NOTE | 2019-12-20 11:50 | WPDINFPN2 ---
Progress Note: A&P Assessment and Plan (1) Cellulitis of foot without toes, right: Code(s): L03.115 - Cellulitis of right lower limb Status: Acute Assessment and Plan: cellulitis of R foot, DM with PN REC (antibiotic # 6) Ctx #1, IV therapy at least 1 day more. Subjective Date/time seen: 12/20/19 11:50 Objective Data Vital Signs Vital Signs: Vital Signs - 24 hr 12/19/19 14:00 12/19/19 16:00 12/19/19 22:00 Temperature 36.8 C 36.7 C Pulse Rate 90 99 91 Respiratory Rate 18 18 Blood Pressure 114/73 104/72 Pulse Oximetry 95 96 12/19/19 23:01 12/20/19 00:00 12/20/19 04:00 Temperature Pulse Rate 90 87 89 Respiratory Rate Blood Pressure Pulse Oximetry 12/20/19 06:00 12/20/19 07:54 12/20/19 08:01 Temperature 36.6 C Pulse Rate 89 83 84 Respiratory Rate 18 18 Blood Pressure 117/86 116/58 L Pulse Oximetry 93 94 Intake/Output Intake/Output: Intake & Output 12/17/19 12/18/19 12/19/19 12/20/19 23:59 23:59 23:59 23:59 Intake Total 2940 4220 4720 1930 Output Total 2400 2400 1475 600 Balance 540 1820 3245 1330 Meds/Results Medications: Active Medications Generic Name Dose Route Start Last Admin Trade Name Freq PRN Reason Stop Dose Admin Acetaminophen 500 mg 12/16/19 15:18 Tylenol Tablet PO Q6H PRN Mild Pain (1-3) or Fever Hydrocodone Bitart/Acetaminophen 1 tab 12/16/19 08:18 12/17/19 09:47 [place] 5-325 Mg PO 1 tab Q4H PRN Administration Pain Rated 4-6 Aspirin 81 mg 12/16/19 12:40 12/20/19 08:00 Aspirin Ec PO 81 mg QAM NETTE Administration Atorvastatin Calcium 40 mg 12/17/19 09:00 12/20/19 08:00 Lipitor PO 40 mg DAILY NETTE Administration Dextrose 12.5 gm 12/15/19 18:51 Dextrose 50% Syringe IV PUSH PRN PRN Hypoglycemia Protocol Enoxaparin Sodium 40 mg 12/16/19 09:00 12/20/19 08:00 Lovenox SUB-Q 40 mg DAILY NETTE Administration Furosemide 40 mg 12/19/19 09:00 12/20/19 08:01 Lasix Tablet PO 40 mg BID NETTE Administration Glucagon 1 mg 12/15/19 18:51 Glucagon For Inj IM PRN PRN Hypoglycemia Protocol Glucose 15 gm 12/15/19 18:51 Glutose 15 PO PRN PRN Hypoglycemia Protocol Dextrose 1,000 mls @ 100 mls/hr 12/15/19 18:51 Dextrose 5% 1,000 Ml IVPB PRN PRN Hypoglycemia Protocol Ceftriaxone Sodium/Dextrose 1 gm in 50 mls @ 100 mls/hr 12/20/19 11:50 Rocephin 1 Gm/D5w 50 Ml IVPB Q24H NETTE Insulin Aspart 2 - 5 units 12/16/19 12:00 12/20/19 07:56 Novolog SUB-Q 2 units TIDWM NETTE Administration Protocol Insulin Aspart 6 units 12/17/19 11:27 12/20/19 07:56 Novolog SUB-Q 6 units TIDWM NETTE Administration Insulin Glargine 14 units 12/17/19 11:27 12/19/19 21:21 Lantus SUB-Q 14 units HS NETTE Administration Losartan Potassium 25 mg 12/17/19 09:00 12/20/19 08:01 Cozaar PO 25 mg QAM NETTE Administration Metoprolol Succinate 25 mg 12/16/19 12:40 12/20/19 08:01 Toprol Xl PO 25 mg QAM NETTE Administration Morphine Sulfate 1 mg 12/16/19 08:18 12/19/19 05:06 Morphine Sulfate Inj IV PUSH 1 mg Q2H PRN Administration Pain Rated 4-6 Morphine Sulfate 2 mg 12/16/19 08:18 12/18/19 11:02 Morphine Sulfate Inj IV PUSH 2 mg Q2H PRN Administration Pain Rated 7-10 Pantoprazole Sodium 40 mg 12/16/19 09:00 12/20/19 08:02 Protonix PO 40 mg QAM NETTE Administration Polyethylene Glycol 17 gm 12/17/19 11:25 12/20/19 08:02 Miralax PO 17 gm DAILY NETTE Administration Potassium Chloride 20 meq 12/20/19 09:00 12/20/19 08:02 Kcl Tablet PO 20 meq BID NETTE Administration Silver Nitrate 1 applic 12/16/19 09:00 12/19/19 09:00 Silvergel TOPICAL 1 applic DAILY NETTE Administration Spironolactone 12.5 mg 12/19/19 09:00 12/20/19 08:02 Aldactone PO 12.5 mg QAM NETTE Administration Radiology Result
[2019-12-20 12:59] LABS: Glucose Point of Care 228 (65-105)
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
[2019-12-20] MEDS: INSULIN ASPART (*BKC) 100 UNITS/ML 7 UNITS SUB-Q (17:09)
[2019-12-20 17:32] LABS: Glucose Point of Care 239 (65-105)
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
[2019-12-20] MEDS: INSULIN GLARGINE (*BKC) 100 UNITS/ML 14 UNITS SUB-Q (20:23)
[2019-12-20 21:31] LABS: Glucose Point of Care 152 (65-105)
[2019-12-21] VITALS (10 sets, daily range): BP systolic 93–118; BP diastolic 48–72; PULSE 67–88; RESP 16–18; TEMP 36.3–37.1; O2SAT 92–98
[2019-12-21 07:35] LABS: Glucose Point of Care 167 (65-105)
--- NOTE | 2019-12-21 08:03 | PM.PNGS ---
Progress Note: A&P Assessment and Plan (1) Diabetic foot ulcer: Qualifiers: Diabetic foot ulcer location: midfoot Diabetes mellitus type: type 2 Laterality: right Non-pressure ulcer stage: limited to breakdown of skin Qualified Code(s): E11.621 - Type 2 diabetes mellitus with foot ulcer; L97.411 - Non-pressure chronic ulcer of right heel and midfoot limited to breakdown of skin Code(s): E11.621 - Type 2 diabetes mellitus with foot ulcer; L97.509 - Non-pressure chronic ulcer of other part of unspecified foot with unspecified severity Status: Acute Assessment and Plan: Patient today has new 3rd metatarsal ulcer with purulent drainage and signs of new infection. Will debride at bedside and get cultures. Will ask Dr. Canela to see in consultation. Plain films have been negative for osteomyelitis. CT scan done 2 days ago was negative for any other deeper infection. Regardless, this is concerning for osteomyelitis and deeper underlying foot infection. (2) Diabetic foot infection: Code(s): E11.628 - Type 2 diabetes mellitus with other skin complications; L08.9 - Local infection of the skin and subcutaneous tissue, unspecified Status: Acute Assessment and Plan: New site of infection at 3rd metatarsal as noted above. Will debride at bedside. (3) Type 2 diabetes mellitus with diabetic neuropathy, unspecified: Code(s): E11.40 - Type 2 diabetes mellitus with diabetic neuropathy, unspecified Status: Chronic Assessment and Plan: Control better but ranges from 160 to 240 blood sugars. Subjective Subjective Date/Time Seen: 12/21/19 08:03 No complaints. Wants to go home. Review of Systems Review of Systems: All systems reviewed & are unremarkable except as noted in HPI and below Constitutional: Constitutional: Denies chills and Denies fever(s) Exam Extrem: Left lower extremity: foot ( New 3rd metatarsal ulcer with purulent drainage) Details: other ( 5th metatarsal ulcer is dry with no drainage and no tenderness.) Objective Data Vital Signs Vital Signs: Vital Signs - 24 hr 12/20/19 12:00 12/20/19 14:00 12/20/19 16:00 Temperature 36.7 C Pulse Rate 84 86 87 Respiratory Rate 18 Blood Pressure 130/86 Pulse Oximetry 97 12/20/19 20:00 12/20/19 22:00 01/28/20 00:00 Temperature 37.1 C Pulse Rate 90 87 88 Respiratory Rate 16 Blood Pressure 114/68 Pulse Oximetry 91 12/21/19 04:00 12/21/19 05:56 Temperature 37.1 C Pulse Rate 83 83 Respiratory Rate 18 Blood Pressure 112/72 Pulse Oximetry 97 Intake/Output Intake/Output: Intake & Output 12/18/19 12/19/19 12/20/19 12/21/19 23:59 23:59 23:59 23:59 Intake Total 4220 4720 2580 1070 Output Total 2400 1475 1275 600 Balance 1820 3245 1305 470 Meds/Results Medications: Active Medications Generic Name Dose Route Start Last Admin Trade Name Freq PRN Reason Stop Dose Admin Acetaminophen 500 mg 12/16/19 15:18 Tylenol Tablet PO Q6H PRN Mild Pain (1-3) or Fever Hydrocodone Bitart/Acetaminophen 1 tab 12/16/19 08:18 12/17/19 09:47 [place] 5-325 Mg PO 1 tab Q4H PRN Administration Pain Rated 4-6 Aspirin 81 mg 12/16/19 12:40 12/20/19 08:00 Aspirin Ec PO 81 mg QAM NETTE Administration Atorvastatin Calcium 40 mg 12/17/19 09:00 12/20/19 08:00 Lipitor PO 40 mg DAILY NETTE Administration Dextrose 12.5 gm 12/15/19 18:51 Dextrose 50% Syringe IV PUSH PRN PRN Hypoglycemia Protocol Enoxaparin Sodium 40 mg 12/16/19 09:00 12/20/19 08:00 Lovenox SUB-Q 40 mg DAILY NETTE Administration Furosemide 40 mg 12/19/19 09:00 12/20/19 17:14 Lasix Tablet PO 40 mg BID NETTE Administration Glucagon 1 mg 12/15/19 18:51 Glucagon For Inj IM PRN PRN Hypoglycemia Protocol Glucose 15 gm 12/15/19 18:51 Glutose 15 PO PRN PRN Hypoglycemia Protocol Dextrose 1,000 mls
--- NOTE | 2019-12-21 08:06 | PM.PNCARD ---
Progress Note: A&P Assessment and Plan (1) Hypertension: Code(s): I10 - Essential (primary) hypertension Status: Acute Assessment and Plan: Stable. Stable. Stable. (2) CAD (coronary artery disease), autologous vein bypass graft: Code(s): I25.810 - Atherosclerosis of coronary artery bypass graft(s) without angina pectoris Status: Acute (3) Hyperlipidemia: Code(s): E78.5 - Hyperlipidemia, unspecified Status: Chronic Assessment and Plan: Advise to maintain a low saturated fat diet. 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 Started on Losartan and Topro and Spironolactonel this hospitalization. Being treated for cellulitis, DM ulcer. Will need outpatient nuclear stress test to assess coronaries and bypass vessels. Order Life Vest and see if he is interested. Advised that it would protect him against sudden cardiac arrest. On Lasix 40 mg PO BID with KCl 20 meq BID. F/U with me in 1 week. Subjective Date/time seen: 12/21/19 08:06 Denies chest pain or sob. Mild edema of right leg. Exam Const: General: comfortable and no acute distress Neck: Neck: no JVD Cardio: Rate: regular rate Rhythm: regular rhythm Heart sounds: no murmurs GI: Inspection: non-distended Neuro: Speech: normal speech Extrem: Right lower extremity: edema Left lower extremity: no edema Other: Mild RLE edema Objective Data Vital Signs Vital Signs: Vital Signs - 24 hr 12/20/19 12:00 12/20/19 14:00 12/20/19 16:00 Temperature 98.1 F Pulse Rate 84 86 87 Respiratory Rate 18 Blood Pressure 130/86 Pulse Oximetry 97 12/20/19 20:00 12/20/19 22:00 12/21/19 00:00 Temperature 98.7 F Pulse Rate 90 87 88 Respiratory Rate 16 Blood Pressure 114/68 Pulse Oximetry 91 12/21/19 04:00 12/21/19 05:56 Temperature 98.8 F Pulse Rate 83 83 Respiratory Rate 18 Blood Pressure 112/72 Pulse Oximetry 97 Intake/Output Intake/Output: Intake & Output 0112/19/19 12/20/19 12/21/19 23:59 23:59 23:59 23:59 Intake Total 4220 4720 2580 1070 Output Total 2400 1475 1275 600 Balance 1820 3245 1305 470 Meds/Results Medications: Active Medications Generic Name Dose Route Start Last Admin Trade Name Freq PRN Reason Stop Dose Admin Acetaminophen 500 mg 12/16/19 15:18 Tylenol Tablet PO Q6H PRN Mild Pain (1-3) or Fever Hydrocodone Bitart/Acetaminophen 1 tab 12/16/19 08:18 12/17/19 09:47 [place] 5-325 Mg PO 1 tab Q4H PRN Administration Pain Rated 4-6 Aspirin 81 mg 12/16/19 12:40 12/20/19 08:00 Aspirin Ec PO 81 mg QAM NETTE Administration Atorvastatin Calcium 40 mg 12/17/19 09:00 12/20/19 08:00 Lipitor PO 40 mg DAILY NETTE Administration Dextrose 12.5 gm 12/15/19 18:51 Dextrose 50% Syringe IV PUSH PRN PRN Hypoglycemia Protocol Enoxaparin Sodium 40 mg 12/16/19 09:00 12/20/19 08:00 Lovenox SUB-Q 40 mg DAILY NETTE Administration Furosemide 40 mg 12/19/19 09:00 12/20/19 17:14 Lasix Tablet PO 40 mg BID NETTE Administration Glucagon 1 mg 12/15/19 18:51 Glucagon For Inj IM PRN PRN Hypoglycemia Protocol Glucose 15 gm 12/15/19 18:51 Glutose 15 PO PRN PRN Hypoglycemia Protocol Dextrose 1,000 mls @ 100 mls/hr 12/15/19 18:51 Dextrose 5% 1,000 Ml IVPB PRN PRN Hypoglycemia Protocol Ceftriaxone Sodium/Dextrose 1 gm in 50 mls @ 100 mls/hr 12/20/19 12:00 12/20/19 14:04 Rocephin 1 Gm/D5w 50 Ml IVPB Infused Q24H NETTE Infusion Insulin Aspart 2 - 5 units 12/16/19 12:00 12/20/19 17:10 Novolog SUB-Q 2 units TIDWM NETTE Administration Protocol Insulin Aspart 7 units 12/20/19 15:40 12/20/19 17:09
[2019-12-21] MEDS: INSULIN ASPART (*BKC) 100 UNITS/ML 7 UNITS SUB-Q ×3 (08:32→17:19)
[2019-12-21] MEDS: POTASSIUM CHLORIDE 20 MEQ TABLET.ER PO ×2 (08:35→17:18)
[2019-12-21] MEDS: ASPIRIN 81 MG ENTERIC TABLET PO (08:35)
[2019-12-21] MEDS: SPIRONOLACTONE 12.5 MG TABLET PO (08:36)
[2019-12-21] MEDS: ATORVASTATIN 40 MG TABLET PO (08:36)
[2019-12-21] MEDS: FUROSEMIDE 40 MG TABLET PO ×2 (08:36→17:18)
[2019-12-21] MEDS: LOSARTAN POTASSIUM 25 MG TABLET PO (08:36)
[2019-12-21] MEDS: METOPROLOL SUCCINATE EXT REL 25 MG TABCR PO (08:36)
[2019-12-21] MEDS: PANTOPRAZOLE 40 MG TABLET PO (08:36)
[2019-12-21] MEDS: SILVERGEL (ELTA) 45 ML 1 APPLIC TOPICAL (08:37)
[2019-12-21] MEDS: ENOXAPARIN 40 MG/0.4 ML SYRINGE SUB-Q (08:37)
[2019-12-21] MEDS: MORPHINE SULFATE 2 MG/ML INJ 1 MG IV PUSH (10:51)
[2019-12-21 11:38] LABS: Glucose Point of Care 209 (65-105)
[2019-12-21] MEDS: INSULIN ASPART (*BKC) 100 UNITS/ML SUB-Q ×2 (12:08→17:20)
--- NOTE | 2019-12-21 12:52 | PM.PROC ---
Procedure Note - Detailed Date of procedure: 12/21/19 Pre-op diagnosis: 3rd metatarsal diabetic foot ulcer right foot 3rd metatarsal diabetic right foot ulcer with necrotizing soft tissue infection Post-op diagnosis: other ( necrotizing soft tissue diabetic foot infection, plantar surface, communicating with 5th metatarsal ulcer) Procedure performed: excisional debridement skin, subcutaneous, and muscle plantar surface right foot 10 cm x 2 cm by 0.8 cm. Description of procedure: the patient was placed prone in his hospital bed. His right foot was propped on pillows and a blanket so that the plantar surface was exposed. sterile prep with Betadine was carried out over the plantar surface of the 3rd metatarsal infection as well as the 5th metatarsal ulcer noted previously. The patient has limited sensation due to diabetic neuropathy but some local anesthetic was necessary during the procedure. 1% lidocaine plain was used. I debrided some of the callus over the infected ulcer in the middle of the plantar surface of the foot. There was a fluctuant area and I made a stab incision into that. There was obviously a pocket of purulent material and necrotic tissue beneath it. This was cultured for aerobes and anaerobes. I then probed the pocket and excised skin and subcutaneous over the pocket. There was tracking both medially and laterally as well as some distally and some towards the heel. I excisionally debrided the necrotic subcutaneous tissue which removed most of the purulent fluid. Then I excised the skin and subcutaneous over some of the areas of tracking so that all the areas of infection were debrided with excisional debridement and removed. Placing a clamp and aiming it towards the 5th metatarsal ulcer, I was able to find that this wound tracked to this ulcer as well. I opened the skin and subcutaneous over the clamp. I then excised the overlying callus and skin including the 5th metatarsal ulcer skin. I excised the subcutaneous and some connective tissue in the area of the 5th metatarsal ulcer. Some of the muscle and connective tissue in the center of the foot had to be excisionally debrided as well. The overall depth of the wound was about 0.8 cm. The wound extended over 10 cm and was average 2 cm wide throughout. By the conclusion of the excisional debridement, there was no necrotic subcutaneous or necrotic muscular fascia left. There was minimal small vessel oozing but no substantial bleeding. No additional tracts or purulent fluid were able to be located by inspection or palpation. I then cleaned the foot around the wound. I packed the wound with dry 4 x 4 gauze. Multiple 4 x 4 gauze were placed over the packing. Kerlix roll was used to wrap the foot and ankle to keep the dressing in place. The patient returned to a supine position and sat up. He tolerated the procedure well. Anesthesia: local ( 20 cc of 1% lidocaine plain) Surgeon: Keron Rodriguez MD Assembler Knife: Leti Glez PUBLIC RELATIONS WRITER Estimated blood loss (mL): 5 Drains: No Packing: Yes Pathology: other ( CULTURES FOR AEROBES AND ANAEROBES WERE SENT) Complications: None Condition: stable Disposition: no change Findings: PLANTAR DIABETIC FOOT INFECTION WITH NECROTIZING SOFT TISSUE INFECTION TRACKING OVER FROM THE 3RD METATARSAL AREA TO THE 5TH METATARSAL ULCER NOTED EARLIER IN THE ADMISSION.
--- NOTE | 2019-12-21 13:41 | WPDINFPN2 ---
Progress Note: A&P Assessment and Plan (1) Cellulitis of foot without toes, right: Code(s): L03.115 - Cellulitis of right lower limb Status: Acute Assessment and Plan: cellulitis of R foot, DM with PN REC (antibiotic # 7) Ctx #2, continue. POD # 0. Op findings noted. Subjective Date/time seen: 12/21/19 13:41 Interval history: no diarrhea Exam Narrative: Exam Narrative: afebrile Const: General: no acute distress Skin: General skin exam: normal color and no rashes or lesions noted Other: less erythema dorsal foot Objective Data Vital Signs Vital Signs: Vital Signs - 24 hr 12/20/19 14:00 12/20/19 16:00 12/20/19 20:00 Temperature 36.7 C Pulse Rate 86 87 90 Respiratory Rate 18 Blood Pressure 130/86 Pulse Oximetry 97 12/20/19 22:00 12/21/19 00:00 12/21/19 04:00 Temperature 37.1 C Pulse Rate 87 88 83 Respiratory Rate 16 Blood Pressure 114/68 Pulse Oximetry 91 12/21/19 05:56 12/21/19 08:36 Temperature 37.1 C Pulse Rate 83 84 Respiratory Rate 18 Blood Pressure 112/72 Pulse Oximetry 97 Intake/Output Intake/Output: Intake & Output 12/18/19 12/19/19 12/20/19 12/21/19 23:59 23:59 23:59 23:59 Intake Total 4220 4720 2580 1070 Output Total 2400 1475 1275 600 Balance 1820 3245 1305 470 Meds/Results Medications: Active Medications Generic Name Dose Route Start Last Admin Trade Name Raymondq PRN Reason Stop Dose Admin Acetaminophen 500 mg 12/16/19 15:18 Tylenol Tablet PO Q6H PRN Mild Pain (1-3) or Fever Hydrocodone Bitart/Acetaminophen 1 tab 12/16/19 08:18 12/21/19 12:14 [place] 5-325 Mg PO 1 tab Q4H PRN Administration Pain Rated 4-6 Aspirin 81 mg 12/16/19 12:40 12/21/19 08:35 Aspirin Ec PO 81 mg QAM NETTE Administration Atorvastatin Calcium 40 mg 12/17/19 09:00 12/21/19 08:36 Lipitor PO 40 mg DAILY NETTE Administration Dextrose 12.5 gm 12/15/19 18:51 Dextrose 50% Syringe IV PUSH PRN PRN Hypoglycemia Protocol Enoxaparin Sodium 40 mg 12/16/19 09:00 12/21/19 08:37 Lovenox SUB-Q 40 mg DAILY NETTE Administration Furosemide 40 mg 12/19/19 09:00 12/21/19 08:36 Lasix Tablet PO 40 mg BID NETTE Administration Glucagon 1 mg 12/15/19 18:51 Glucagon For Inj IM PRN PRN Hypoglycemia Protocol Glucose 15 gm 12/15/19 18:51 Glutose 15 PO PRN PRN Hypoglycemia Protocol Dextrose 1,000 mls @ 100 mls/hr 12/15/19 18:51 Dextrose 5% 1,000 Ml IVPB PRN PRN Hypoglycemia Protocol Ceftriaxone Sodium/Dextrose 1 gm in 50 mls @ 100 mls/hr 12/20/19 12:00 12/21/19 12:19 Rocephin 1 Gm/D5w 50 Ml IVPB 100 mls/hr Q24H NETTE Administration Insulin Aspart 2 - 5 units 12/16/19 12:00 12/21/19 12:08 Novolog SUB-Q 2 units TIDWM NETTE Administration Protocol Insulin Aspart 7 units 12/20/19 15:40 12/21/19 12:09 Novolog SUB-Q 7 units TIDWM NETTE Administration Insulin Glargine 14 units 12/17/19 11:27 12/20/19 20:23 Lantus SUB-Q 14 units HS NETTE Administration Losartan Potassium 25 mg 12/17/19 09:00 12/21/19 08:36 Cozaar PO 25 mg QAM NETTE Administration Metoprolol Succinate 25 mg 12/16/19 12:40 12/21/19 08:36 Toprol Xl PO 25 mg QAM NETTE Administration Morphine Sulfate 1 mg 12/16/19 08:18 12/21/19 10:51 Morphine Sulfate Inj IV PUSH 1 mg Q2H PRN Administration Pain Rated 4-6 Morphine Sulfate 2 mg 12/16/19 08:18 12/18/19 11:02 Morphine Sulfate Inj IV PUSH 2 mg Q2H PRN Administration Pain Rated 7-10 Pantoprazole Sodium 40 mg 12/16/19 09:00 12/21/19 08:36 Protonix PO 40 mg QAM NETTE Administration Polyethylene Glycol 17 gm 12/17/19 11:25 01/28/20 08:42 Miralax PO Not Given DAILY NETTE Potassium Chloride 20 meq 12/20/19 09:00 12/21/19 08:35 Kcl Tablet PO 20 meq BID NETTE Administration Senna 187 mg 12/20/19 21:00
--- NOTE | 2019-12-21 13:42 | PCDIET ---
Nutrition Follow-Up Complete: Pt current nutrition is [facility] Nutrition recommendation: Agree Last recorded weight is 104.3 kg (steady) Bowel Motility: Labs Reviewed: Glucose 167, C Reactive 19.3, Na 129 Meds Noted:Insulin, KCL, Protonix, Senokot Additional Notes: Pt on appropriate diet eating well, 95-100% of all meals. Glucose is much better controlled at 167 than initial visit at 310. notes state new signs of infection on 3rd metatarsal. We will continue to monitor for good glucose control and adequate intake to aid in healing every five days.
--- NOTE | 2019-12-21 15:13 | PC.NURSE ---
On 12/21/19, the student, [Sharda Nickerson ], provided care and completed [facility] documentation on this patient. I have reviewed the student's documentation and agree with the findings.
--- NOTE | 2019-12-21 15:14 | PC.NURSE ---
On 12/21/19, the student, [Estella Valdivia ], provided care and completed [facility] documentation on this patient. I have reviewed the student's documentation and agree with the findings.
--- NOTE | 2019-12-21 16:21 | P.PNIM_ITS ---
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 Rodriguez noted this morning a new wound/tracking to R 3rd metatarsal. * Dr. Rodriguez and Leti performed bedside excisional debridement and recommended Ortho consult. * Dr Canela and Karen following - appreciate input. Noted Karen's recommendation that he may require wound VAC. (2) Cellulitis of foot, right: Code(s): L03.115 - Cellulitis of right lower limb Status: Deleted Assessment and Plan: * He was initially treated with IV imipenem and vancomycin, switched to Rocephin 12/20. * Continue IV Rocephin (day 2) per Dr. Diez's recommendations. * Blood cultures are negative. Wound gram stain and culture from Dr. Rodriguez's bedside debridement today pending. * CT 12/18 did not show bone involvement. * Tight glycemic control to optimize wound healing. (3) Diabetes: Qualifiers: Diabetes mellitus type: type 2 Diabetes mellitus jail insulin use: without long term care social worker use Diabetes mellitus complication status: with skin co mplications Diabetes mellitus complication detail: with foot ulcer Qualified Code(s): E11.621 - Type 2 diabetes mellitus with foot ulcer; L97.509 - Non- pressure chronic ulcer of other part of unspecified foot with unspecified severity Code(s): E11.9 - Type 2 diabetes mellitus without complications Status: Chronic Assessment and Plan: * Patient has not been monitoring his blood glucose levels. Hgb A1c is 12. * He has been started on insulin therapy and seen by the religious educator. He has been educated on new insulin regimen. * Discussed with him the importance of good blood sugar control for his wound healing. (4) Congestive heart failure: Qualifiers: Heart failure type: systolic Heart failure chronicity: acute on chronic Qualified Code(s): I50.23 - Acute on chronic systolic (congestive) heart failure Code(s): I50.9 - Heart failure, unspecified Status: Chronic Assessment and Plan: * Echocardiogram reveals severely reduced systolic function, EF 15-20%. * He has been seen by Dr. Gruber who is arranging for a life vest. Dr. Gruber notes this can be obtained as an outpatient after discharge and he will follow-up in 1 week. * He was started on metoprolol, losartan, spironolactone and furosemide. (5) CAD (coronary artery disease): Qualifiers: Coronary Disease-Associated Artery/Lesion type: bypass graft [place] vs. transplanted heart: [place] heart Associated angina: without angina Qualified Code(s): I25.810 - Atherosclerosis of coronary artery bypass graft(s) without angina pectoris Code(s): I25.10 - Atherosclerotic heart disease of [place] coronary artery without angina pectoris Status: Acute Assessment and Plan: * History of 2 stents and 4 vessel CABG. He stated he badillo
--- NOTE | 2019-12-21 16:21 | PM.IMPN ---
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 Rodriguez noted this morning a new wound/tracking to R 3rd metatarsal. Dr. Rodriguez and Leti performed bedside excisional debridement and recommended Ortho consult. Dr Canela and Karen following - appreciate input. Noted Karen's recommendation that he may require wound VAC. (2) Cellulitis of foot, right: Code(s): L03.115 - Cellulitis of right lower limb Status: Deleted Assessment and Plan: He was initially treated with IV imipenem and vancomycin, switched to Rocephin 12/20. Continue IV Rocephin (day 2) per Dr. Diez's recommendations. Blood cultures are negative. Wound gram stain and culture from Dr. Rodriguez's bedside debridement today pending. CT 12/18 did not show bone involvement. Tight glycemic control to optimize wound healing. (3) Diabetes: Qualifiers: Diabetes mellitus type: type 2 Diabetes mellitus fdc insulin use: without termite helper use Diabetes mellitus complication status: with skin complications Diabetes mellitus complication detail: with foot ulcer Qualified Code(s): E11.621 - Type 2 diabetes mellitus with foot ulcer; L97.509 - Non-pressure chronic ulcer of other part of unspecified foot with unspecified severity Code(s): E11.9 - Type 2 diabetes mellitus without complications Status: Chronic Assessment and Plan: Patient has not been monitoring his blood glucose levels. Hgb A1c is 12. He has been started on insulin therapy and seen by the community health educator. He has been educated on new insulin regimen. Discussed with him the importance of good blood sugar control for his wound healing. (4) Congestive heart failure: Qualifiers: Heart failure type: systolic Heart failure chronicity: acute on chronic Qualified Code(s): I50.23 - Acute on chronic systolic (congestive) heart failure Code(s): I50.9 - Heart failure, unspecified Status: Chronic Assessment and Plan: Echocardiogram reveals severely reduced systolic function, EF 15-20%. He has been seen by Dr. Gruber who is arranging for a life vest. Dr. Gruber notes this can be obtained as an outpatient after discharge and he will follow-up in 1 week. He was started on metoprolol, losartan, spironolactone and furosemide. (5) CAD (coronary artery disease): Qualifiers: Coronary Disease-Associated Artery/Lesion type: bypass graft [place] vs. transplanted heart: [place] heart Associated angina: without angina Qualified Code(s): I25.810 - Atherosclerosis of coronary artery bypass graft(s) without angina pectoris Code(s): I25.10 - Atherosclerotic heart disease of [place] coronary artery without angina pectoris Status: Acute Assessment and Plan: History of 2 stents and 4 vessel CABG. He stated he does not take medications and does not follow-up with Cardiology. Cardiology following -appreciate input. Follow-up with Dr. Gruber in 1 week. Stable. No chest pain. (6) Peripheral neuropathy: Qualifiers: Peripheral neuropathy type: polyneuropathy, unspecified Qualified Code(s): G62.9 -
--- NOTE | 2019-12-21 16:40 | PM.CNOR ---
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 Patient began self-treatment of the wound with debridement which resulted in bleeding. He then treated the wound with sandpaper. He subsequently developed signs of infection and drainage which concerned him for gangrene prompting his arrival to the ED on 12/15. He was started with IV antibiotics for treatment of cellulitis as well as local wound care. He has been followed by general surgery. Radiographs/CT scan of the right foot reveal no evidence of osteomyelitis. Elevated ESR/CRP noted. HgB A1C 12.2 The wound worsened over the past 1 day with new onset extension along the plantar midfoot to the plantar aspect of the 3rd metatarsal into the 2nd. The patient underwent a bedside debridement by Dr. Rodriguez today to unroof the remaining callus at which point an abscess was noted. Cultures were obtained and are pending at this time. Wound bed appears to be adequately debrided at this time. Unable to probe to bone. Agree with continuation of IV antibiotics per Dr. Diez. Cultures pending. Would recommend beginning wound VAC treatment at this time. PWB on heel with walker. Patient should be fit with fracture boot for pressure offloading. Will require follow up in the [facility] [place] Wound [facility] with wound VAC dressing changes 3x weekly. Patient will also need follow up scheduled with PCP/endocrinology for diabetic management. Diabetic nurse educator recommended. May require further debridement or graft application in the future. Thank you for allowing us to assist in the care of this patient. <BENEDICTO Duckworth - Last Filed: 12/21/19 17:24> History of Present Illness HPI Consult date: 12/21/19 <BENEDICTO Duckworth - Last Filed: 12/21/19 17:24> 12/21/19 <Vipul Canela MD - Last Filed: 12/21/19 20:47> Requesting physician: Keron Rodriguez MD <BENEDICTO Duckworth - Last Filed: 12/21/19 17:24> Consult reason: other (Right Plantar DFU ) <BENEDICTO Duckworth - Last Filed: 12/21/19 17:24> Chief complaint: 3rd metatarsal diabetic foot ulcer right foot <BENEDICTO Duckworth - Last Filed: 12/21/19 17:24> Narrative: 64 year old male with a history of a right plantar diabetic foot ulcer which he reports began around 12/12. He states he first noticed a callus on the plantar aspect of the right lateral forefoot, around the 5th MTP joint which he removed. He then noticed bleeding and treated it on his own with sandpaper and a needle like nail file. He began experiencing redness/warmth to the forefoot which prompted his arrival to the ED on 12/15 and admitted for treatment of cellulitis. Radiographs at that time revealed no osteomyelitis. He was admitted and treated for cellulitis with IV antibiotics and local wound care with silver gel. At some point in the last 1 day the wound worsened with tracking to the 3rd metatarsal where he developed a new ulcer. He has been followed by general surgery who requested a consult s/p I&D at the bedside today due to concerns for wor
[2019-12-21 17:43] LABS: Glucose Point of Care 234 (65-105)
[2019-12-21 21:18] LABS: Glucose Point of Care 229 (65-105)
[2019-12-21] MEDS: INSULIN GLARGINE (*BKC) 100 UNITS/ML 14 UNITS SUB-Q (21:33)
[2019-12-22] VITALS (11 sets, daily range): BP systolic 98–108; BP diastolic 53–68; PULSE 72–85; RESP 16–18; TEMP 36.4–36.7; O2SAT 92–99
[2019-12-22 06:30] LABS: Basophils Percent Auto 0.5 % (0.2-1.2); Eosinophils Absolute Auto 0.2 K/mm3 (0-0.3); Eosinophils Percent Auto 1.9 % (0-4.4); Hematocrit 32.9 % (42.0-52.0); Hemoglobin 11.1 g/dL (14.0-18.0); Immature Granulocyte Absolute 0.04 K/mm3 (0.00-0.031); Immature Granulocyte Percent A 0.5 % (0-0.5); Lymphocytes Absolute Auto 1.37 K/mm3 (0.9-3.2); Lymphocytes Percent Auto 16.5 % (18.3-44.2); Mean Corpuscular HGB Conc 33.7 g/dl (32-36); Mean Corpuscular Volume 88.9 fl (80-100); Mean Platelet Volume 10.8 fl (7.4-10.4); Monocytes Absolute Auto 0.8 K/mm3 (0.1-0.6); Monocytes Percent Auto 9.7 % (2.6-8.5); Neutrophils Absolute Auto 5.9 K/mm3 (1.3-6.7); Neutrophils Percent Auto 70.9 % (45.5-73.1); Platelet Count Result 300 k/mm3 (150-375); Red Cell Distribution Width 12.9 % (11.5-14.5); White Blood Count 8.3 K/mm3 (4.5-10.0)
[2019-12-22 06:34] LABS: Alanine Aminotransferase 23 U/L (4-50); Albumin Level 2.7 g/dL (3.5-5.1); Alkaline Phosphatase 188 U/L (38-126); Aspartate Amino Transferase 17 U/L (17-59); Bilirubin,Total 0.6 mg/dL (0.2-1.3); Blood Urea Nitrogen 10 mg/dL (9-20); Calcium 8.4 mg/dL (8.4-10.2); Carbon Dioxide 29 mmol/L (22-30); Chloride 92 mmol/L (98-107); Estimated CRCL calculation 88 ml/min; Estimated Glomerular Filt Rate > 60; Glucose 202 mg/dL (75-110); Magnesium 2.1 mg/dL (1.6-2.3); Phosphorus 3.9 mg/dL (2.5-4.5); Potassium 3.6 mmol/L (3.4-5.0); Sodium 130 mmol/L (137-145)
[2019-12-22 07:27] LABS: Glucose Point of Care 205 (65-105)
--- NOTE | 2019-12-22 07:56 | PM.PNCARD ---
Progress Note: A&P Assessment and Plan (1) Hypertension: Code(s): I10 - Essential (primary) hypertension Status: Acute Assessment and Plan: Stable. Stable. Stable. (2) CAD (coronary artery disease), autologous vein bypass graft: Code(s): I25.810 - Atherosclerosis of coronary artery bypass graft(s) without angina pectoris Status: Acute (3) Hyperlipidemia: Qualifiers: Hyperlipidemia type: unspecified Qualified Code(s): E78.5 - Hyperlipidemia, unspecified Code(s): E78.5 - Hyperlipidemia, unspecified Status: Chronic Assessment and Plan: Advise to maintain a low saturated fat diet. (4) Combined systolic and diastolic heart failure: Code(s): I50.40 - Unspecified combined systolic (congestive) and diastolic (congestive) heart failure Status: Acute Assessment and Plan: EF 15-20%, diastolic dysfunction, mod MRDavid Started on Losartan and Topro and Spironolactonel this hospitalization. On Lasix 40 mg PO BID with KCl 20 meq BID. Being treated for cellulitis, DM ulcer. Will need outpatient nuclear stress test to assess coronaries and bypass vessels. Order Life Vest and see if he is interested. Advised that it would protect him against sudden cardiac arrest. However, according to patient, [facility] was unable to capture his heart rhythm for unknown reasons and their IT was contacted yesterday. I will contact them today to find out the status. Upon discharge, F/U with me in 1 week. Subjective Date/time seen: 12/22/19 07:56 Denies chest pain. He had some PROCTOR walking with his walker. Mild edema of right leg. Exam Const: General: comfortable and no acute distress Neck: Neck: no JVD Resp: Effort & Inspection: normal respiratory effort Auscultation: no crackles, no rales, no rhonchi and no wheezes Cardio: Rate: regular rate Rhythm: regular rhythm Heart sounds: no murmurs GI: Inspection: non-distended Neuro: Speech: normal speech Extrem: Right lower extremity: edema Left lower extremity: no edema Other: Mild edema of right leg Objective Data Vital Signs Vital Signs: Vital Signs - 24 hr 12/21/19 08:00 12/21/19 08:36 12/21/19 12:00 Temperature 97.4 F L Pulse Rate 84 84 87 Respiratory Rate 18 Blood Pressure 118/60 Pulse Oximetry 98 12/21/19 14:00 12/21/19 16:00 12/21/19 21:56 Temperature 98.3 F Pulse Rate 67 83 82 Respiratory Rate 16 Blood Pressure 93/48 L Pulse Oximetry 98 12/21/19 22:00 12/22/19 00:00 12/22/19 04:00 Temperature 98.2 F Pulse Rate 88 83 77 Respiratory Rate 18 Blood Pressure 108/52 L Pulse Oximetry 92 12/22/19 06:00 Temperature 98.1 F Pulse Rate 80 Respiratory Rate 16 Blood Pressure 102/65 Pulse Oximetry 92 Intake/Output Intake/Output: Intake & Output 12/19/19 12/20/19 12/21/19 12/22/19 23:59 23:59 23:59 23:59 Intake Total 4720 2580 2100 550 Output Total 1475 1275 600 700 Balance 3245 1305 1500 -150 Meds/Results Medications: Active Medications Generic Name Dose Route Start Last Admin Trade Name Freq PRN Reason Stop Dose Admin Acetaminophen 500 mg 12/16/19 15:18 Tylenol Tablet PO Q6H PRN Mild Pain (1-3) or Fever Hydrocodone Bitart/Acetaminophen 1 tab 12/16/19 08:18 12/21/19 12:14 [place] 5-325 Mg PO 1 tab Q4H PRN Administration Pain Rated 4-6 Aspirin 81 mg 12/16/19 12:40 12/21/19 08:35 Aspirin Ec PO 81 mg QAM NETTE Administration Atorvastatin Calcium 40 mg 12/17/19 09:00 12/21/19 08:36 Lipitor PO 40 mg DAILY NETTE Administration Dextrose 12.5 gm 12/15/19 18:51 Dextrose 50% Syringe IV PUSH PRN PRN Hypoglycemia Protocol Enoxaparin Sodium 40 mg 12/16/19 09:00 12/21/19 08:37 Lovenox SUB-Q 40 mg DAILY NETTE Administration Furosemide 40 mg 12/19/19 09:00 12/21/19 17:18 Lasix Tablet PO 40 mg BID NETTE Administration Glucagon 1 mg 12/15/19 18:51 Glucagon For I
[2019-12-22] MEDS: INSULIN ASPART (*BKC) 100 UNITS/ML SUB-Q ×2 (08:31→11:27)
[2019-12-22] MEDS: INSULIN ASPART (*BKC) 100 UNITS/ML 7 UNITS SUB-Q ×3 (08:32→16:34)
[2019-12-22] MEDS: ENOXAPARIN 40 MG/0.4 ML SYRINGE SUB-Q (08:34)
[2019-12-22] MEDS: FUROSEMIDE 40 MG TABLET PO ×2 (08:36→16:28)
[2019-12-22] MEDS: PANTOPRAZOLE 40 MG TABLET PO (08:36)
[2019-12-22] MEDS: METOPROLOL SUCCINATE EXT REL 25 MG TABCR PO (08:36)
[2019-12-22] MEDS: ATORVASTATIN 40 MG TABLET PO (08:36)
[2019-12-22] MEDS: SPIRONOLACTONE 12.5 MG TABLET PO (08:36)
[2019-12-22] MEDS: ASPIRIN 81 MG ENTERIC TABLET PO (08:36)
[2019-12-22] MEDS: LOSARTAN POTASSIUM 25 MG TABLET PO (08:37)
[2019-12-22] MEDS: POTASSIUM CHLORIDE 20 MEQ TABLET.ER PO ×2 (08:37→16:28)
[2019-12-22] MEDS: MORPHINE SULFATE 4 MG/ML INJ 2 MG IV PUSH ×2 (09:40→19:50)
[2019-12-22 11:10] LABS: Glucose Point of Care 219 (65-105)
--- NOTE | 2019-12-22 14:15 | PC.NURSE ---
On 12/22/19, the student, [CHELA PRICE ], provided care and completed [facility] documentation on this patient. I have reviewed the student's documentation and agree with the findings.
--- NOTE | 2019-12-22 14:25 | WPDINFPN2 ---
Progress Note: A&P Assessment and Plan (1) Cellulitis of foot without toes, right: Code(s): L03.115 - Cellulitis of right lower limb Status: Acute Assessment and Plan: 1. cellulitis of R foot 2. DM with PN REC (antibiotic # 8) Ctx #3, continue. POD # 1. Op culture in process. Subjective Date/time seen: 12/22/19 14:25 Interval history: getting wound care by nursing staff Exam Narrative: Exam Narrative: offers no new complaints Const: General: no acute distress Skin: General skin exam: normal color and no rashes or lesions noted Objective Data Vital Signs Vital Signs: Vital Signs - 24 hr 12/21/19 16:00 12/21/19 21:56 12/21/19 22:00 Temperature 36.8 C Pulse Rate 83 82 88 Respiratory Rate 18 Blood Pressure 108/52 L Pulse Oximetry 92 12/22/19 00:00 12/22/19 04:00 12/22/19 06:00 Temperature 36.7 C Pulse Rate 83 77 80 Respiratory Rate 16 Blood Pressure 102/65 Pulse Oximetry 92 12/22/19 08:00 12/22/19 08:36 12/22/19 09:15 Temperature Pulse Rate 83 80 85 Respiratory Rate 16 Blood Pressure 108/68 Pulse Oximetry 98 12/22/19 12:00 Temperature Pulse Rate 84 Respiratory Rate Blood Pressure Pulse Oximetry Intake/Output Intake/Output: Intake & Output 12/19/19 12/20/19 12/21/19 12/22/19 23:59 23:59 23:59 23:59 Intake Total 4720 2580 2150 550 Output Total 1475 1275 600 700 Balance 3245 1305 1550 -150 Meds/Results Medications: Active Medications Generic Name Dose Route Start Last Admin Trade Name Freq PRN Reason Stop Dose Admin Acetaminophen 500 mg 12/16/19 15:18 Tylenol Tablet PO Q6H PRN Mild Pain (1-3) or Fever Hydrocodone Bitart/Acetaminophen 1 tab 12/16/19 08:18 12/22/19 12:38 [place] 5-325 Mg PO 1 tab Q4H PRN Administration Pain Rated 4-6 Aspirin 81 mg 12/16/19 12:40 12/22/19 08:36 Aspirin Ec PO 81 mg QAM NETTE Administration Atorvastatin Calcium 40 mg 12/17/19 09:00 12/22/19 08:36 Lipitor PO 40 mg DAILY NETTE Administration Dextrose 12.5 gm 12/15/19 18:51 Dextrose 50% Syringe IV PUSH PRN PRN Hypoglycemia Protocol Enoxaparin Sodium 40 mg 12/16/19 09:00 12/22/19 08:34 Lovenox SUB-Q 40 mg DAILY NETTE Administration Furosemide 40 mg 12/19/19 09:00 12/22/19 08:36 Lasix Tablet PO 40 mg BID NETTE Administration Glucagon 1 mg 12/15/19 18:51 Glucagon For Inj IM PRN PRN Hypoglycemia Protocol Glucose 15 gm 12/15/19 18:51 Glutose 15 PO PRN PRN Hypoglycemia Protocol Dextrose 1,000 mls @ 100 mls/hr 12/15/19 18:51 Dextrose 5% 1,000 Ml IVPB PRN PRN Hypoglycemia Protocol Ceftriaxone Sodium/Dextrose 1 gm in 50 mls @ 100 mls/hr 12/20/19 12:00 12/22/19 11:38 Rocephin 1 Gm/D5w 50 Ml IVPB 100 mls/hr Q24H NETTE Administration Insulin Aspart 2 - 5 units 12/16/19 12:00 12/22/19 11:27 Novolog SUB-Q 2 units TIDWM NETTE Administration Protocol Insulin Aspart 7 units 12/20/19 15:40 12/22/19 11:27 Novolog SUB-Q 7 units TIDWM NETTE Administration Insulin Glargine 14 units 12/17/19 11:27 12/21/19 21:33 Lantus SUB-Q 14 units HS NETTE Administration Losartan Potassium 25 mg 12/17/19 09:00 12/22/19 08:37 Cozaar PO 25 mg QAM NETTE Administration Metoprolol Succinate 25 mg 12/16/19 12:40 12/22/19 08:36 Toprol Xl PO 25 mg QAM NETTE Administration Morphine Sulfate 1 mg 12/16/19 08:18 12/21/19 10:51 Morphine Sulfate Inj IV PUSH 1 mg Q2H PRN Administration Pain Rated 4-6 Morphine Sulfate 2 mg 12/16/19 08:18 12/22/19 09:40 Morphine Sulfate Inj IV PUSH 2 mg Q2H PRN Administration Pain Rated 7-10 Pantoprazole Sodium 40 mg 12/16/19 09:00 12/22/19 08:36 Protonix PO 40 mg QAM NETTE Administration Polyethylene Glycol 17 gm 12/17/19 11:25 12/22/19 08:45 Miralax PO Not Given DAILY NETTE Potassium
--- NOTE | 2019-12-22 14:44 | PC.NURSE ---
On 12/22/19, the student, [Angelica Aguirre ], provided care and completed [facility] documentation on this patient. I have reviewed the student's documentation and agree with the findings.
--- NOTE | 2019-12-22 14:53 | PM.PNGS ---
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 The wound looks good today without any purulent drainage or significant necrosis. Will initiate wound VAC therapy. We did discuss with the patient that initiating the wound VAC therapy will require dressing changes three times a week and follow-up in the wound clinic. Ortho consulted and appreciate their recommendations. Continue antibiotics per ID. Wound cultures pending. The patient lives at home alone and there is concern that he will not be able to get around his house safely on his own with the wound VAC, fracture boot, and protective weight bearing status. It would be possible to be discharged home with home health to do his dressing changes three times a week and follow-up in the wound clinic if this is safe for the patient. The other option would be going to a SNF for continued wound care, assistance with ADLs, and physical therapy. PT/OT consult would be reasonable to help decipher his needs on discharge. (2) Diabetic foot infection: Code(s): E11.628 - Type 2 diabetes mellitus with other skin complications; L08.9 - Local infection of the skin and subcutaneous tissue, unspecified Status: Acute Assessment and Plan: (3) Type 2 diabetes mellitus with diabetic neuropathy, unspecified: Code(s): E11.40 - Type 2 diabetes mellitus with diabetic neuropathy, unspecified Status: Chronic Assessment and Plan: Glycemic control is pressing and I discussed this with the patient today. He will need to adhere to his current medication regimen at home, which he has been non-compliant with in the past. Additional Plan Discussed the patient's case and plan of care with Dr. Rodriguez. Subjective Subjective Date/Time Seen: 12/22/19 14:00 Post Op day: 1 Patient reports: no new complaints Interval history: Patient seen and examined with the wound care nurses. Denies new complaints. States he is only having pain in his foot if pressure is put on the wound. He has been fitted for a fracture boot today and his this in place initially on my exam. He has not gotten up out of bed yet much today. No other complaints. Review of Systems Review of Systems: All systems reviewed & are unremarkable except as noted in HPI and below Constitutional: Constitutional: Denies chills and Denies fever(s) Exam Const: General: comfortable, no acute distress, alert and awake Orientation/consciousness: patient oriented x3 Skin: Wounds: wounds noted Other: Large wound on plantar aspect of the right foot starting at the 2rd metatarsal and extending laterally to the 5th metatarsal of the midfoot near the 5th MTP joint. Does not probe to bone. No purulent drainage or necrotic tissue noted today. No odor. Cellulitis of RLE continues to improve. Objective Data Vital Signs Vital Signs: Vital Signs - 24 hr 12/21/19 16:00 12/21/19 21:56 12/21/19 22:00 Temperature 36.8 C Pulse Rate 83 82 88 Respiratory Rate 18 Blood Pressure 108/52 L Pulse Oximetry 92 12/22/19 00:00 12/22/19 04:00 12/22/19 06:00 Temperature 36.7 C Pulse Rate 83 77 80 Respiratory Rate 16 Blood Pressure 102/65 Pulse Oximetry 92 12/22/19 08:00 12/22/19 08:36 12/22/19 09:15 Temperature Pulse Rate 83
--- NOTE | 2019-12-22 16:10 | PM.IMPN ---
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 Wound vac being initiated today. Will require dressing changes three times per week and follow up with wound clinic. Discharge dispo is SNF vs. home with home health for dressing changes. Suspect it may be difficult for him to ambulate with the wound vac, ordered PT/OT for discharge planning. (2) Diabetes: Qualifiers: Diabetes mellitus complication detail: with foot ulcer Diabetes mellitus complication status: with skin complications Diabetes mellitus skilled nursing insulin use: without skilled nursing use Diabetes mellitus type: type 2 Qualified Code(s): E11.621 - Type 2 diabetes mellitus with foot ulcer; L97.509 - Non-pressure chronic ulcer of other part of unspecified foot with unspecified severity Code(s): E11.9 - Type 2 diabetes mellitus without complications Status: Chronic Assessment and Plan: Patient has not been monitoring his blood glucose levels at home. Hgb A1c is 12. He has been started on insulin therapy and seen by the information systems security analyst. He has been educated on new insulin regimen. Discussed with him the importance of good blood sugar control for his wound healing. Increase mealtime bolus. (3) Congestive heart failure: Qualifiers: Heart failure chronicity: acute on chronic Heart failure type: systolic Qualified Code(s): I50.23 - Acute on chronic systolic (congestive) heart failure Code(s): I50.9 - Heart failure, unspecified Status: Chronic Assessment and Plan: Echocardiogram reveals severely reduced systolic function, EF 15-20%. He has been seen by Dr. Gruber who is arranging for a life vest. Dr. Gruber notes this can be obtained as an outpatient after discharge and he will follow-up in 1 week. He was started on metoprolol, losartan, spironolactone and furosemide. (4) CAD (coronary artery disease): Qualifiers: Associated angina: without angina Coronary Disease-Associated Artery/Lesion type: bypass graft [place] vs. transplanted heart: [place] heart Qualified Code(s): I25.810 - Atherosclerosis of coronary artery bypass graft(s) without angina pectoris Code(s): I25.10 - Atherosclerotic heart disease of [place] coronary artery without angina pectoris Status: Acute Assessment and Plan: History of 2 stents and 4 vessel CABG. He stated he was not taking any medications or following with Cardiology. Cardiology following -appreciate input. Follow-up with Dr. Gruber in 1 week. Stable. No chest pain. (5) Peripheral neuropathy: Qualifiers: Peripheral neuropathy type: polyneuropathy, unspecified Qualified Code(s): G62.9 - Polyneuropathy, unspecified Code(s): G62.9 - Polyneuropathy, unspecified Status: Chronic Assessment and Plan: Optimization of glycemic control as mentioned above. (6) Depression: Qualifiers: Depression Type: unspecified Qualified Code(s): F32.9 - Major depressive disorder, single episode, unspecified Code(s): F32.9 - Major depressive disorder, single episode, unspecified Status: Chronic
[2019-12-22 16:33] LABS: Glucose Point of Care 179 (65-105)
[2019-12-22] MEDS: INSULIN GLARGINE (*BKC) 100 UNITS/ML 14 UNITS SUB-Q (20:57)
[2019-12-22 21:36] LABS: Glucose Point of Care 225 (65-105)
[2019-12-23] VITALS (10 sets, daily range): BP systolic 112–121; BP diastolic 56–61; PULSE 76–90; RESP 6–20; TEMP 36.6–36.7; O2SAT 96–98
[2019-12-23 05:57] LABS: Hematocrit 35.2 % (42.0-52.0); Hemoglobin 11.6 g/dL (14.0-18.0); Mean Corpuscular Hemoglobin 29.7 pg (26-34); Mean Corpuscular Volume 90.3 fl (80-100); Mean Platelet Volume 10.4 fl (7.4-10.4); Platelet Count Result 310 k/mm3 (150-375); Red Cell Distribution Width 12.9 % (11.5-14.5); White Blood Count 6.4 K/mm3 (4.5-10.0)
[2019-12-23 06:15] LABS: Blood Urea Nitrogen 10 mg/dL (9-20); Calcium 8.7 mg/dL (8.4-10.2); Carbon Dioxide 31 mmol/L (22-30); Chloride 95 mmol/L (98-107); Estimated CRCL calculation 88 ml/min; Estimated Glomerular Filt Rate > 60; Glucose 191 mg/dL (75-110); Potassium 4.2 mmol/L (3.4-5.0); Sodium 132 mmol/L (137-145)
--- NOTE | 2019-12-23 07:46 | PM.PNCARD ---
Progress Note: A&P Assessment and Plan (1) Hypertension: Code(s): I10 - Essential (primary) hypertension Status: Acute Assessment and Plan: Stable. (2) CAD (coronary artery disease), autologous vein bypass graft: Code(s): I25.810 - Atherosclerosis of coronary artery bypass graft(s) without angina pectoris Status: Acute (3) Hyperlipidemia: Qualifiers: Hyperlipidemia type: unspecified Qualified Code(s): E78.5 - Hyperlipidemia, unspecified Code(s): E78.5 - Hyperlipidemia, unspecified Status: Chronic Assessment and Plan: Advise to maintain a low saturated fat diet. 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 Started on Losartan and Topro and Spironolactonel this hospitalization. On Lasix 40 mg PO BID with KCl 20 meq BID. Being treated for cellulitis, DM ulcer. Will need outpatient nuclear stress test to assess coronaries and bypass vessels. Life Vest in place started on 12/22/19. Advised that it would protect him against sudden cardiac arrest. Upon discharge, F/U with me in 1 week. Subjective Date/time seen: 12/23/19 07:46 Denies chest pain or sob. Mild swelling of legs. Exam Const: General: comfortable and no acute distress Neck: Neck: no JVD Resp: Effort & Inspection: normal respiratory effort Auscultation: clear to auscultation bilaterally, no crackles, no rales, no rhonchi and no wheezes Cardio: Rate: regular rate Rhythm: regular rhythm Heart sounds: no murmurs GI: Inspection: non-distended Neuro: Speech: normal speech Extrem: Right lower extremity: edema Left lower extremity: edema Other: Mild edema of legs Objective Data Vital Signs Vital Signs: Vital Signs - 24 hr 12/22/19 08:00 12/22/19 08:36 12/22/19 09:15 Temperature Pulse Rate 83 80 85 Respiratory Rate 16 Blood Pressure 108/68 Pulse Oximetry 98 12/22/19 12:00 12/22/19 14:00 12/22/19 16:00 Temperature 97.6 F Pulse Rate 84 76 77 Respiratory Rate 16 Blood Pressure 102/58 L Pulse Oximetry 99 01/29/20 20:00 12/22/19 22:00 12/23/19 00:00 Temperature 97.6 F Pulse Rate 72 76 76 Respiratory Rate 18 Blood Pressure 98/53 L Pulse Oximetry 94 12/23/19 04:00 12/23/19 05:59 Temperature 97.9 F Pulse Rate 85 80 Respiratory Rate 18 Blood Pressure 112/57 L Pulse Oximetry 98 Intake/Output Intake/Output: Intake & Output 12/20/19 12/21/19 12/22/19 12/23/19 23:59 23:59 23:59 23:59 Intake Total 2580 2150 1790 780 Output Total 2793 697 7694 1200 Balance 1305 1550 390 -420 Meds/Results Medications: Active Medications Generic Name Dose Route Start Last Admin Trade Name Freq PRN Reason Stop Dose Admin Acetaminophen 500 mg 12/16/19 15:18 Tylenol Tablet PO Q6H PRN Mild Pain (1-3) or Fever Hydrocodone Bitart/Acetaminophen 1 tab 12/16/19 08:18 12/22/19 12:38 [place] 5-325 Mg PO 1 tab Q4H PRN Administration Pain Rated 4-6 Aspirin 81 mg 12/16/19 12:40 12/22/19 08:36 Aspirin Ec PO 81 mg QAM NETTE Administration Atorvastatin Calcium 40 mg 12/17/19 09:00 12/22/19 08:36 Lipitor PO 40 mg DAILY NETTE Administration Dextrose 12.5 gm 12/15/19 18:51 Dextrose 50% Syringe IV PUSH PRN PRN Hypoglycemia Protocol Enoxaparin Sodium 40 mg 12/16/19 09:00 12/22/19 08:34 Lovenox SUB-Q 40 mg DAILY NETTE Administration Furosemide 40 mg 12/19/19 09:00 12/22/19 16:28 Lasix Tablet PO 40 mg BID NETTE Administration Glucagon 1 mg 12/15/19 18:51 Glucagon For Inj IM PRN PRN Hypoglycemia Protocol Glucose 15 gm 12/15/19 18:51 Glutose 15 PO PRN PRN Hypoglycemia Protocol Dextrose 1,000 mls @ 100 mls/hr 12/15/19 1
[2019-12-23 08:04] LABS: Glucose Point of Care 191 (65-105)
[2019-12-23] MEDS: INSULIN ASPART (*BKC) 100 UNITS/ML 9 UNITS SUB-Q ×3 (08:04→17:04)
[2019-12-23] MEDS: ENOXAPARIN 40 MG/0.4 ML SYRINGE SUB-Q (08:07)
[2019-12-23] MEDS: POTASSIUM CHLORIDE 20 MEQ TABLET.ER PO ×2 (08:07→17:03)
[2019-12-23] MEDS: polyethylene glycoL 3350 17 GM POWD.PACK PO (08:07)
[2019-12-23] MEDS: ASPIRIN 81 MG ENTERIC TABLET PO (08:07)
[2019-12-23] MEDS: LOSARTAN POTASSIUM 25 MG TABLET PO (08:07)
[2019-12-23] MEDS: ATORVASTATIN 40 MG TABLET PO (08:07)
[2019-12-23] MEDS: PANTOPRAZOLE 40 MG TABLET PO (08:07)
[2019-12-23] MEDS: FUROSEMIDE 40 MG TABLET PO ×2 (08:07→17:42)
[2019-12-23] MEDS: METOPROLOL SUCCINATE EXT REL 25 MG TABCR PO (08:07)
[2019-12-23] MEDS: SPIRONOLACTONE 12.5 MG TABLET PO (08:07)
--- NOTE | 2019-12-23 10:09 | P.PNIM_ITS ---
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 * Wound vac initiated 12/22/19. Will require dressing changes three times per week and follow up with wound clinic. * Rocephin day 4 - stopped and changed to oral augmentin x [address] Diez. * Ortho following - appreciate input. Plan for ortho to see tomorrow for dressing change and possible discharge tomorrow to SNF pending ortho recommendations. (2) Diabetes: Qualifiers: Diabetes mellitus complication detail: with foot ulcer Diabetes deinse itus complication status: with skin complications Diabetes mellitus [place] insulin use: without [facility] use Diabetes mellitus type: type 2 Qualified Code(s): E11.621 - Type 2 diabetes mellitus with foot ulcer; L97.509 - Non- pressure chronic ulcer of other part of unspecified foot with unspecified severity Code(s): E11.9 - Type 2 diabetes mellitus without complications Status: Chronic Assessment and Plan: * Patient has not been monitoring his blood glucose levels at home. Hgb A1c is 12. * He has been started on insulin therapy and seen by the community nutrition educator. He has been educated on glucose checks and new insulin regimen, and I went over this material again with him this morning using a teach back method. * Discussed with him the importance of tight blood sugar control for his wound healing. * Increased mealtime bolus yesterday and monitor with accu-cheks. (3) Congestive heart failure: Qualifiers: Heart failure chronicity: acute on chronic Heart failure type: systolic Qualified Code(s): I50.23 - Acute on chronic systolic (congestive) heart failure Code(s): I50.9 - Heart failure, unspecified Status: Chronic Assessment and Plan: * Echocardiogram reveals severely reduced systolic function, EF 15-20%. * He has been seen by Dr. Gruber who arranged Life Vest - initiated 12/22/19. Follow up with Dr Gruber in 1 week. * He was started on metoprolol, losartan, spironolactone and furosemide. (4) CAD (coronary artery disease): Qualifiers: Associated angina: without angina Coronary Disease-Associated Artery/Lesion type: bypass graft [place] vs. transplanted heart: [place] heart Qualified Code(s): I25.810 - Atherosclerosis of coronary artery bypass graft(s) without angina pectoris Code(s): I25.10 - Atherosclerotic heart disease of [place] coronary artery without angina pectoris Status: Acute Assessment and Plan: * History of 2 stents and 4 vessel CABG. He stated he was not taking any medications or following with Cardiology. * Cardiology following -appreciate input. Follow-up with Dr. Gruber in 1 week. * Stable. No chest pain. (5) Peripheral neuropathy: Qualifiers: Peripheral neuropathy type: polyneuropathy, unspecified Qualified Code(s):
--- NOTE | 2019-12-23 10:09 | PM.IMPN ---
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 Wound vac initiated 12/22/19. Will require dressing changes three times per week and follow up with wound clinic. Rocephin day 4 - stopped and changed to oral augmentin x [address] Diez. Ortho following - appreciate input. Plan for ortho to see tomorrow for dressing change and possible discharge tomorrow to SNF pending ortho recommendations. (2) Diabetes: Qualifiers: Diabetes mellitus complication detail: with foot ulcer Diabetes mellitus complication status: with skin complications Diabetes mellitus intermediate card tender insulin use: without intermediate card tender use Diabetes mellitus type: type 2 Qualified Code(s): E11.621 - Type 2 diabetes mellitus with foot ulcer; L97.509 - Non-pressure chronic ulcer of other part of unspecified foot with unspecified severity Code(s): E11.9 - Type 2 diabetes mellitus without complications Status: Chronic Assessment and Plan: Patient has not been monitoring his blood glucose levels at home. Hgb A1c is 12. He has been started on insulin therapy and seen by the breastfeeding educator. He has been educated on glucose checks and new insulin regimen, and I went over this material again with him this morning using a teach back method. Discussed with him the importance of tight blood sugar control for his wound healing. Increased mealtime bolus yesterday and monitor with accu-cheks. (3) Congestive heart failure: Qualifiers: Heart failure chronicity: acute on chronic Heart failure type: systolic Qualified Code(s): I50.23 - Acute on chronic systolic (congestive) heart failure Code(s): I50.9 - Heart failure, unspecified Status: Chronic Assessment and Plan: Echocardiogram reveals severely reduced systolic function, EF 15-20%. He has been seen by Dr. Gruber who arranged Life Vest - initiated 12/22/19. Follow up with Dr Gruber in 1 week. He was started on metoprolol, losartan, spironolactone and furosemide. (4) CAD (coronary artery disease): Qualifiers: Associated angina: without angina Coronary Disease-Associated Artery/Lesion type: bypass graft [place] vs. transplanted heart: [place] heart Qualified Code(s): I25.810 - Atherosclerosis of coronary artery bypass graft(s) without angina pectoris Code(s): I25.10 - Atherosclerotic heart disease of [place] coronary artery without angina pectoris Status: Acute Assessment and Plan: History of 2 stents and 4 vessel CABG. He stated he was not taking any medications or following with Cardiology. Cardiology following -appreciate input. Follow-up with Dr. Gruber in 1 week. Stable. No chest pain. (5) Peripheral neuropathy: Qualifiers: Peripheral neuropathy type: polyneuropathy, unspecified Qualified Code(s): G62.9 - Polyneuropathy, unspecified Code(s): G62.9 - Polyneuropathy, unspecified Status: Chronic Assessment and Plan: Optimization of glycemic control as mentioned above. (6) Depression: Qualifiers: Depression Type: unspecified Qualified Code(s): F32.9 - Major dep
--- NOTE | 2019-12-23 11:51 | WPDINFPN2 ---
Progress Note: A&P Assessment and Plan (1) Cellulitis of foot without toes, right: Code(s): L03.115 - Cellulitis of right lower limb Status: Acute Assessment and Plan: 1. cellulitis of R foot due to Group B Strep. 2. DM with PN, not fully controlled with hyperglycemia REC (antibiotic # 9) Ctx #4, stop and begin Augmentin x 12 days more. Will use this, rather than a more narrow spectrum agent such as PCN, due to potential copathogens besides the Strep. Ok discharge planning. Will sign off, thanks. POD # 2. Subjective Date/time seen: 12/23/19 11:51 Interval history: feeling better. Vac in place. No diarrhea, no dyspnea Exam Narrative: Exam Narrative: afebrile Const: General: no acute distress Eyes: General: appearance normal, both eyes and all related structures Resp: Effort & Inspection: normal respiratory effort Auscultation: clear to auscultation bilaterally Cardio: Rate: regular rate Rhythm: regular rhythm Heart sounds: no gallops and no murmurs GI: Inspection: non-distended GI Palp: Yes Soft to palpation and No Tenderness to palpation present (GI) Skin: General skin exam: normal color and no rashes or lesions noted Extrem: Other: r foot wound vac, no proximal erythema nor tenderness Objective Data Vital Signs Vital Signs: Vital Signs - 24 hr 12/22/19 12:00 12/22/19 14:00 12/22/19 16:00 Temperature 36.4 C Pulse Rate 84 76 77 Respiratory Rate 16 Blood Pressure 102/58 L Pulse Oximetry 99 12/22/19 20:00 12/22/19 22:00 12/23/19 00:00 Temperature 36.4 C Pulse Rate 72 76 76 Respiratory Rate 18 Blood Pressure 98/53 L Pulse Oximetry 94 12/23/19 04:00 12/23/19 05:59 12/23/19 08:00 Temperature 36.6 C Pulse Rate 85 80 81 Respiratory Rate 18 Blood Pressure 112/57 L Pulse Oximetry 98 12/23/19 08:07 Temperature Pulse Rate 76 Respiratory Rate Blood Pressure Pulse Oximetry Intake/Output Intake/Output: Intake & Output 12/20/19 12/21/19 12/22/19 12/23/19 23:59 23:59 23:59 23:59 Intake Total 2580 2150 1790 780 Output Total 2956 353 4207 1200 Balance 1305 1550 390 -420 Meds/Results Medications: Active Medications Generic Name Dose Route Start Last Admin Trade Name Freq PRN Reason Stop Dose Admin Acetaminophen 500 mg 12/16/19 15:18 Tylenol Tablet PO Q6H PRN Mild Pain (1-3) or Fever Hydrocodone Bitart/Acetaminophen 1 tab 12/16/19 08:18 12/23/19 10:17 [place] 5-325 Mg PO 1 tab Q4H PRN Administration Pain Rated 4-6 Aspirin 81 mg 12/16/19 12:40 12/23/19 08:07 Aspirin Ec PO 81 mg QAM NETTE Administration Atorvastatin Calcium 40 mg 12/17/19 09:00 12/23/19 08:07 Lipitor PO 40 mg DAILY NETTE Administration Dextrose 12.5 gm 12/15/19 18:51 Dextrose 50% Syringe IV PUSH PRN PRN Hypoglycemia Protocol Enoxaparin Sodium 40 mg 12/16/19 09:00 12/23/19 08:07 Lovenox SUB-Q 40 mg DAILY NETTE Administration Furosemide 40 mg 12/19/19 09:00 12/23/19 08:07 Lasix Tablet PO 40 mg BID NETTE Administration Glucagon 1 mg 12/15/19 18:51 Glucagon For Inj IM PRN PRN Hypoglycemia Protocol Glucose 15 gm 12/15/19 18:51 Glutose 15 PO PRN PRN Hypoglycemia Protocol Dextrose 1,000 mls @ 100 mls/hr 12/15/19 18:51 Dextrose 5% 1,000 Ml IVPB PRN PRN Hypoglycemia Protocol Ceftriaxone Sodium/Dextrose 1 gm in 50 mls @ 100 mls/hr 12/20/19 12:00 12/22/19 11:38 Rocephin 1 Gm/D5w 50 Ml IVPB 100 mls/hr Q24H NETTE Administration Insulin Aspart 2 - 5 units 12/16/19 12:00 12/23/19 08:02 Novolog SUB-Q Not Given TIDWM NETTE Protocol Insulin Aspart 9 units 12/23/19 08:00 12/23/19 08:04 Novolog SUB-Q 9 units TIDWM NETTE Administration Insulin Glargine 14 units 12/17/19 11:27 12/22/19 20:57 Lantus SUB-Q 14 units HS NETTE Administration Losartan Potassium 25 mg 12/17/19 09:00 0
[2019-12-23] MEDS: INSULIN ASPART (*BKC) 100 UNITS/ML SUB-Q (11:52)
[2019-12-23 12:18] LABS: Glucose Point of Care 229 (65-105)
--- NOTE | 2019-12-23 12:54 | PM.PNORT ---
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 Plan for wound VAC dressing change tomorrow with [facility] wound clinic nurses. Preliminary cultures reveal Group B Streptococcus. Final culture pending. Antibiotic regimen per Dr. Diez. PWB on heel with walker. Patient should be fit with fracture boot for pressure offloading. Will require follow up in the [facility] wound clinic weekly for wound VAC dressing changes. Wound VAC dressing changes 3x weekly. Will also need home health vs. SNF. Care coordination following. May require further debridement or graft application in the future, patient verbalized understanding. Will continue to follow. Subjective Subjective Date/Time Seen: 12/23/19 0840 No new complaints. Sitting up in bed. Wound VAC in place. Principal diagnosis: Right DFU Interval history: No new complaints. Tolerating wound VAC. Review of Systems Constitutional: Constitutional: Denies chills, Reports night sweats and Denies weakness Eyes: Eyes: Reports no additional eye complaints ENT: Reports Normal hearing present Cardiovascular: Cardiovascular: Denies chest pain, Reports pedal edema (Right Foot ) and Denies lightheadedness Respiratory: Respiratory: Denies cough, Denies dyspnea and Denies wheezing Gastrointestinal: Gastrointestinal: Denies constipation, Denies diarrhea, Denies nausea and Denies vomiting Musculoskeletal: Comments: Right DFU Integumentary/Breasts: Comments: Redness/warmth/swelling right plantar/dorsal forefoot to midfoot Neurologic: Reports numbness Comments: Numbness/Tingling b/l feet Psychiatric: Psychiatric: Denies anxiety and Denies depression Exam Const: General: comfortable and no acute distress Resp: Effort & Inspection: normal respiratory effort Neuro: Cognition (Neuro): normal cognition Sensory Exam: No normal sensation (insensate to midshin bilaterally ) Extrem: Right lower extremity: foot Details: normal capillary refill, vascular exam Details: dorsalis pedis pulse present and motor-sensory exam Details: light-touch abnormal (toes to midshin bilaterally ); no tenderness Other: Wound VAC in place right plantar foot, functioning well, no leaking. Serousangiouns fluid in chamber. Surrounding tissue with improvement in redness/warmth/swelling. Palpable pedal pulses. Insensate from toes to midshin bilaterally. No pain. Psych: Mental Status: mental status grossly normal Affect: normal affect Objective Data Vital Signs Vital Signs: Vital Signs - 24 hr 12/22/19 14:00 12/22/19 16:00 12/22/19 20:00 Temperature 36.4 C Pulse Rate 76 77 72 Respiratory Rate 16 Blood Pressure 102/58 L Pulse Oximetry 99 12/22/19 22:00 12/23/19 00:00 12/23/19 04:00 Temperature 36.4 C Pulse Rate 76 76 85 Respiratory Rate 18 Blood Pressure 98/53 L Pulse Oximetry 94 12/23/19 05:59 12/23/19 08:00 12/23/19 08:07 Temperature 36.6 C Pulse Rate 80 81 76 Respiratory Rate 18 Blood Pressure 112/57 L Pulse Oximetry 98 Intake/Output Intake/Output: Intake & Output 12/20/19 12/21/19 12/22/19 12/23/19 23:59 23:59 23:59 23:59 Intake Total 2580 2150 1840 830 Output Total 3364 748 5006 1200 Balance 1305 1550 440 -370 Meds/Results Medications: Active Medications Generic Name Dose Route Start Last Admin Trade Name Raymondq PRN
--- NOTE | 2019-12-23 12:55 | PCDIET ---
Nutrition consult Complete Goal: 3gm Na diet Pt current nutrition is DBCC Nutrition recommendation: Recommend DBCC/Heart Healthy Diet Last recorded weight is 104.3 kg (need new wt) Bowel Motility:na Labs Reviewed:Glucose 191 Meds Noted:win Rodriguez Additional Notes: Seeing pt 2/2 request for 3gm Na diet edu due to CHF. Pt with EF of 15-20% per MD notes. Pt is s/p debridement on foot. Glucose elevated today at 191. Recommend maintaining glucose under 180 for optimal healing. Pt was previously edu on a carb consistent diet and remembers to include 3 servings of carbs at meals. He does do TV dinners daily and adds salt to meals. I encouraged him to limit added salt at the table by slowly reducing intake and comparing salt content of TV dinners to reduce. I encouraged lower salt foods and provided pt with handout and recommended foods. I recommend CoQ10 supplement daily due to CHF and DM. We will continue to monitor every five days.
[2019-12-23] MEDS: AMOXICILLIN/CLAVULANATE K 500-125 MG TAB 1 TABLET PO ×2 (14:14→21:09)
[2019-12-23 16:54] LABS: Glucose Point of Care 143 (65-105)
[2019-12-23] MEDS: INSULIN GLARGINE (*BKC) 100 UNITS/ML 14 UNITS SUB-Q (21:08)
[2019-12-23 22:17] LABS: Glucose Point of Care 114 (65-105)
[2019-12-24] VITALS (7 sets, daily range): BP systolic 111–120; BP diastolic 66; PULSE 70–80; RESP 16–18; TEMP 36.4–36.5; O2SAT 94–99
[2019-12-24] MEDS: AMOXICILLIN/CLAVULANATE K 500-125 MG TAB 1 TABLET PO ×2 (05:54→13:26)
[2019-12-24 06:25] LABS: Blood Urea Nitrogen 10 mg/dL (9-20); Calcium 8.7 mg/dL (8.4-10.2); Carbon Dioxide 29 mmol/L (22-30); Chloride 96 mmol/L (98-107); Estimated CRCL calculation 80 ml/min; Estimated Glomerular Filt Rate > 60; Glucose 216 mg/dL (75-110); Potassium 4.3 mmol/L (3.4-5.0); Sodium 133 mmol/L (137-145)
[2019-12-24] MEDS: INSULIN ASPART (*BKC) 100 UNITS/ML 9 UNITS SUB-Q ×2 (07:18→11:46)
[2019-12-24] MEDS: INSULIN ASPART (*BKC) 100 UNITS/ML SUB-Q (07:18)
[2019-12-24 07:38] LABS: Glucose Point of Care 245 (65-105)
--- NOTE | 2019-12-24 08:46 | PM.PNGS ---
Progress Note: A&P Assessment and Plan (1) Diabetic foot infection: Code(s): E11.628 - Type 2 diabetes mellitus with other skin complications; L08.9 - Local infection of the skin and subcutaneous tissue, unspecified Status: Chronic Assessment and Plan: Dr. Hutchison consultation and plans appreciated. Will defer to their management at this juncture. Will go ahead and sign off. 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 without evidence of necrosis Code(s): E11.621 - Type 2 diabetes mellitus with foot ulcer; L97.509 - Non-pressure chronic ulcer of other part of unspecified foot with unspecified severity Status: Chronic Subjective Subjective Date/Time Seen: 12/24/19 08:46 Objective Data Vital Signs Vital Signs: Vital Signs - 24 hr 12/23/19 12:00 12/23/19 14:00 12/23/19 16:00 Temperature 36.7 C Pulse Rate 76 86 76 Respiratory Rate 6 L Blood Pressure 121/56 L Pulse Oximetry 96 12/23/19 20:00 12/23/19 22:00 12/24/19 00:00 Temperature 36.6 C Pulse Rate 90 79 74 Respiratory Rate 20 Blood Pressure 119/61 Pulse Oximetry 98 12/24/19 04:00 12/24/19 06:00 Temperature 36.5 C Pulse Rate 77 71 Respiratory Rate 18 Blood Pressure 111/66 Pulse Oximetry 94 Intake/Output Intake/Output: Intake & Output 12/21/19 12/22/19 12/23/19 12/24/19 23:59 23:59 23:59 23:59 Intake Total 2150 1840 2840 550 Output Total 600 1400 2800 2100 Balance 1550 440 40 -1550 Meds/Results Medications: Active Medications Generic Name Dose Route Start Last Admin Trade Name Freq PRN Reason Stop Dose Admin Acetaminophen 500 mg 12/16/19 15:18 Tylenol Tablet PO Q6H PRN Mild Pain (1-3) or Fever Hydrocodone Bitart/Acetaminophen 1 tab 12/16/19 08:18 12/24/19 05:54 [place] 5-325 Mg PO 1 tab Q4H PRN Administration Pain Rated 4-6 Amoxicillin/Clavulanate Potassium 1 tablet 12/23/19 14:00 12/24/19 05:54 Augmentin 500-125 Mg Tab PO 01/04/20 23:59 1 tablet Q8HR NETTE Administration Aspirin 81 mg 12/16/19 12:40 12/23/19 08:07 Aspirin Ec PO 81 mg QAM NETTE Administration Atorvastatin Calcium 40 mg 12/17/19 09:00 12/23/19 08:07 Lipitor PO 40 mg DAILY NETTE Administration Dextrose 12.5 gm 12/15/19 18:51 Dextrose 50% Syringe IV PUSH PRN PRN Hypoglycemia Protocol Enoxaparin Sodium 40 mg 12/16/19 09:00 12/23/19 08:07 Lovenox SUB-Q 40 mg DAILY NETTE Administration Furosemide 40 mg 12/19/19 09:00 12/23/19 17:42 Lasix Tablet PO 40 mg BID NETTE Administration Glucagon 1 mg 12/15/19 18:51 Glucagon For Inj IM PRN PRN Hypoglycemia Protocol Glucose 15 gm 12/15/19 18:51 Glutose 15 PO PRN PRN Hypoglycemia Protocol Dextrose 1,000 mls @ 100 mls/hr 12/15/19 18:51 Dextrose 5% 1,000 Ml IVPB PRN PRN Hypoglycemia Protocol Insulin Aspart 2 - 5 units 12/16/19 12:00 12/24/19 07:18 Novolog SUB-Q 2 units TIDWM NETTE Administration Protocol Insulin Aspart 9 units 12/23/19 08:00 12/24/19 07:18 Novolog SUB-Q 9 units TIDWM NETTE Administration Insulin Glargine 14 units 12/17/19 11:27 12/23/19 21:08 Lantus SUB-Q 14 units HS NETTE Administration Losartan Potassium 25 mg 12/17/19 09:00 12/23/19 08:07 Cozaar PO 25 mg QAM NETTE Administration Metoprolol Succinate 25 mg 12/16/19 12:40 12/23/19 08:07 Toprol Xl PO 25 mg QAM NETTE Administration Morphine Sulfate 1 mg 12/16/19 08:18 12/21/19 10:51 Morphine Sulfate Inj IV PUSH 1 mg Q2H PRN Administration Pain Rated 4-6
[2019-12-24] MEDS: ENOXAPARIN 40 MG/0.4 ML SYRINGE SUB-Q (09:50)
[2019-12-24] MEDS: SPIRONOLACTONE 12.5 MG TABLET PO (09:50)
[2019-12-24] MEDS: ATORVASTATIN 40 MG TABLET PO (09:50)
[2019-12-24] MEDS: ASPIRIN 81 MG ENTERIC TABLET PO (09:50)
[2019-12-24] MEDS: FUROSEMIDE 40 MG TABLET PO (09:51)
[2019-12-24] MEDS: PANTOPRAZOLE 40 MG TABLET PO (09:51)
[2019-12-24] MEDS: LOSARTAN POTASSIUM 25 MG TABLET PO (09:51)
[2019-12-24] MEDS: POTASSIUM CHLORIDE 20 MEQ TABLET.ER PO (09:51)
[2019-12-24] MEDS: METOPROLOL SUCCINATE EXT REL 25 MG TABCR PO (09:52)
[2019-12-24 11:58] LABS: Glucose Point of Care 182 (65-105)
--- NOTE | 2019-12-24 13:42 | PM.PNORT ---
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 Overall appearance of wound improved and stable. Some erythema of the small toe with some tunneling which is possible concern. Plan for discharge to senior care with wound VAC with dressing change of Friday. Will plan close follow-up in wound clinic to assess wound and re-evaluate the small toe. Plan for followup January 04. Nonweightbearing right foot with wound VAC in place. Okay to discharge from orthopedic standpoint. (2) Foot abscess, right: Code(s): L02.611 - Cutaneous abscess of right foot Status: Acute Subjective Subjective Date/Time Seen: 12/24/19 09:42 Patient seen and examined with wound care team and nurse practitioner. Wound VAC dressing removed from right foot. Patient with no new complaints. No pain and right foot as he is insensate. Review of Systems Constitutional: Constitutional: Denies chills, Reports night sweats and Denies weakness Eyes: Eyes: Reports no additional eye complaints ENT: Reports Normal hearing present Cardiovascular: Cardiovascular: Denies chest pain, Reports pedal edema (Right Foot ) and Denies lightheadedness Respiratory: Respiratory: Denies cough, Denies dyspnea and Denies wheezing Gastrointestinal: Gastrointestinal: Denies constipation, Denies diarrhea, Denies nausea and Denies vomiting Musculoskeletal: Comments: Right DFU Integumentary/Breasts: Comments: Redness/warmth/swelling right plantar/dorsal forefoot to midfoot Neurologic: Reports numbness Comments: Numbness/Tingling b/l feet Psychiatric: Psychiatric: Denies anxiety and Denies depression Exam Const: General: comfortable and no acute distress Orientation/consciousness: oriented to person, oriented to place, oriented to time and No confusion HENMT: Head: normal to inspection, normocephalic and atraumatic Eyes: Conjunctivae: conjunctivae normal Sclera: sclerae normal Neck: Neck: supple and nontender Resp: Effort & Inspection: normal respiratory effort Cardio: Rate: regular rate Rhythm: regular rhythm Skin: General skin exam: no rashes or lesions noted Neuro: General: oriented to person, oriented to place, oriented to time and No confusion Cognition (Neuro): normal cognition Sensory Exam: No normal sensation (insensate to midshin bilaterally ) Extrem: Right lower extremity: foot Details: normal capillary refill, vascular exam Details: dorsalis pedis pulse present and motor-sensory exam Details: light-touch abnormal (toes to midshin bilaterally ); no tenderness Other: Wound VAC removed right plantar foot. Surrounding tissue with improvement in redness/warmth/swelling. Still with redness surrounding the 5th toe. No redness dorsum of the foot, ankle or leg. Palpable pedal pulses And posterior tibial pulses. Insensate from toes to midshin bilaterally. No pain. wound clean with some early granulation tissue. No areas of purulence. There is tunneling from the distal aspect of the wound to the base of the 5th and 4th toe. No exposed tendon or bone. There is visible parts of the plantar fascia. Psych: Mental Status: mental status grossly normal Affect: normal affect Objective Data Vital Signs Vital Signs: Vital Signs - 24 hr 12/23/19 14:00 12/23/19 16:00 12/23/19 20:00 Temperature 98.0 F
--- NOTE | 2019-12-24 19:53 | PM.DS ---
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 Morris is a 64yo M with history of uncontrolled type 2 diabetes mellitus, congestive heart failure, coronary artery disease who presented to the emergency department for evaluation of a right foot wound. He saw PCP in the office 12/15/19 who advised him to go to the ED. He reported using sandpaper to callus on his right foot and developed increased pain and swelling to the area 2 to 3 days later. On arrival, he was noted to have an ulcer to the plantar aspect of his right foot over the [address]th [address] right foot showed edema without abscess or bony erosions. General Surgery and Infectious Disease were consulted and he was started on IV antibiotic therapy (initially with vancomycin and imipenem, switched to Rocephin by ID). Wound was not improving and in fact, new ulceration with tracking to the 3rd metatarsal was noted a few days later and Dr Rodriguez performed a bedside debridement 12/21. Orthopedic surgery was consulted and wound care was initiated with a wound vac 12/22/19. He will follow up with orthopedic surgery, Dr Canela, in 2 weeks. He will require dressing changes 3 times weekly and follow up with wound clinic. His antibiotics were switched to oral augmentin to complete 11 more days after discharge. Wound culture is growing Group B strep; blood cultures are negative. He is noted to have poor compliance with uncontrolled diabetes. He reported he occasionally took his metformin and did not check his blood sugars. Hgb A1c is 12. Extensive diabetic teaching was performed by myself, nursing, and the bounty hunter, Cinthia Bravo. He was started on a basal-bolus insulin regimen and educated on regular glucose checks. Discussed the importance of tight glycemic control for his wound healing. He is known to have CAD and combined systolic and diastolic CHF. He reported exertional dyspnea, no chest pain. He was seen by cardiology, Dr Gruber, and eventually agreeable to Life Vest, which was initiated 12/22. He was started on metoprolol, losartan, spironolactone and furosemide. I scheduled a follow up appointment with Dr Gruber for next week. Difficulty ambulating with the wound vac on his plantar right foot, felt to be a good candidate for SNF who could also help him with glycemic control in this crucial time period of wound healing. He was hemodynamically stable for discharge to SNF 12/24/19. Please see Discharge Medications below for his new medications, there are several. Consultations: Orthopedic surgery - Dr Canela (appointment scheduled below) Cardiology - Dr Gruber (appointment scheduled below) Infectious disease - Dr Diez (no follow up needed) General surgery - Dr Rodriguez (no follow up needed) s/p excisional debridement of necrotizing wound to plantar right foot by Dr Rodriguez 12/21. Wound vac initiated 12/22/19. Will require dressing changes three times per week and follow up with wound clinic. Rocephin day 4 - stopped and changed to oral augmentin x [address] Diez. (2) Diabetes: Qualifiers: Diabetes mellitus type: type 2 Diabetes mellitus [facility]p insulin use: without [facility]p use Diabetes mellitus complication status: with skin co
== END 2019-12-24 15:50 | DRG 623 ==
LOC: ANHED 15:46 → ANH3MEDSUR 15:54
PROVIDERS: Nurse Practitioner; Physician Assistant; Surgery; Admitting Provider Internal Medicine; Emergency Provider Emergency Medicine; PCP Family Medicine; Visit Provider Physician Assistant
DX: E11.621 Type 2 diabetes mellitus with foot ulcer (principal); I50.42 Chronic combined systolic (congestive) and diastolic (congestive) heart failure; E87.1 Hypo-osmolality and hyponatremia; L03.115 Cellulitis of right lower limb; L02.611 Cutaneous abscess of right foot; L97.513 Non-pressure chronic ulcer of other part of right foot with necrosis of muscle; E11.628 Type 2 diabetes mellitus with other skin complications; I25.10 Atherosclerotic heart disease of native coronary artery without angina pectoris; B95.1 Streptococcus, group B, as the cause of diseases classified elsewhere; E11.42 Type 2 diabetes mellitus with diabetic polyneuropathy; E78.5 Hyperlipidemia, unspecified; F41.8 Other specified anxiety disorders; M19.90 Unspecified osteoarthritis, unspecified site; E66.9 Obesity, unspecified; Z68.32 Body mass index [BMI] 32.0-32.9, adult; Z95.5 Presence of coronary angioplasty implant and graft; Z95.1 Presence of aortocoronary bypass graft; I25.2 Old myocardial infarction; Z87.820 Personal history of traumatic brain injury; Z91.19 Patient's noncompliance with other medical treatment and regimen; Z91.14 Patient's other noncompliance with medication regimen
CPT/HCPCS: 36415; 71046; 73630; 73701; 80048; 80053; 80061; 80202; 83036; 83605; 83735; 83880; 83935; 84100; 84300; 84443; 85025; 85027; 85610; 85652; 85730; 86140; 87040; 87070; 87075; 87077; 87205; 93005; 96374; 96375; 96376; 97110; 97116; 97161; 97164; 97165; 99285; A9270; C8929; J0696; J0743; J1650; J1815; J1940; J2270; J3370; J3475; J7030; J7040; J7120; Q9957; Q9967

== ENCOUNTER 2020-01-12 08:14 | Outpatient (CLI) | payer OTHER, SELFPAY ==
--- NOTE | ~2020-01-12 | NM_ITS ---
EXAMINATION: NM connie stress w perfusion DATE: 01/12/2020 10:57 INDICATION: Unspecified combined systolic heart failure. TECHNIQUE: Rest images were obtained following intravenous administration of 10.5 mCi Tc99m tetrofosm in (Myoview). The patient was infused intravenously with Lexiscan (Regadenoson). Then, 32.5 mCi Tc99m tetrofosmin (Myoview) was administered intravenously, and stress images were obtained. Data was deanna nstructed into short axis and horizontal and vertical long axis SPECT images. Gated SPECT images were also obtained. COMPARISON: None. FINDINGS: Large severe nonreversible perfusion defect consistent with infarct involving the apical, a pical, mid and basilar inferior and mid inferoseptal segments. No reversible ischemia. Left ventricu lar enlargement with calculated end-diastolic volume of 209 mm. There is global hypokinesis with thic kened akinetic inferior wall. Left ventricular ejection fraction measures 34%. IMPRESSION: 1. Large severe infarct involving the apex and apical to basilar inferior wall and mid inferoseptal w all. No reversible ischemia. 2. Left ventricular enlargement with moderately decreased ejection fraction measuring 34%. Reviewed, dictated and finalized at location A. GRAPHER IMPRESSION: 1. Large severe infarct involving the apex and apical to basilar inferior wall and mid inferoseptal wall. No reversible ischemia. 2. Left ventricular enlargement with moderately decreased ejection fraction lorrie suring 34%.
--- NOTE | 2020-01-12 08:19 | EST_ITS ---
Patient Info Name: Preston Morris Age: 64 years : 1955 Gender: Male Exam Date: 01/12/2020 9:37 AM Exam Location: [facility] Stress Patient Status: Outpatient Admit Date: 01/12/2020 Staff Ordering Physician: Leonides Gruber DO Attending Provider: Leonides Gruber DO Exercise Technologist: Dena Adams CT Exercise Physician: Leonides Gruber DO Exam Type: CA stress connie w NM Study Info Indications R07.89 - Other chest pain A regadenoson stress test was performed. Summary 1. 1. Negative lexiscan stress test for ischemic ST changes by ECG criteria. 2. 2. Stable hemodynamics throughout the test. 3. 3. Nuclear scan to follow and will be reported separately. Please correlate with it. 4. 4. Patient informed of the above results. Protocol: Lexiscan Stress ECG Details Stage: REST Duration (min): 8 min : 56 sec HR (bpm): 76 SBP (mmHg): 124 DBP (mmHg): 73 Stage: STAGE 1 Duration (min): 0 min : 59 sec HR (bpm): 75 SBP (mmHg): 114 DBP (mmHg): 65 Stage: RECOVERY Duration (min): 1 min : 0 sec HR (bpm): 82 SBP (mmHg): 114 DBP (mmHg): 65 Stage: RECOVERY Duration (min): 1 min : 26 sec HR (bpm): 82 SBP (mmHg): 113 DBP (mmHg): 64 Rest HR: 76 bpm Peak HR: 82 bpm Rest Sys BP: 124 mmHg Peak Sys BP: 114 mmHg Max Pred HR: 155 bpm % Max Pred HR: 53 % Target HR: 132 bpm Max RPP: 9,348 bpm*mmHg Termination Reason: Completed protocol Cardiac Symptoms: None Total Time: 1 min : 0 sec Rest Bragg BP: 73 mmHg Peak Bragg BP: 65 mmHg Total Dose: 0.4 mg Resting ECG Sinus rhythm, RBBB, anterolateral infarct and inferior infarct, age indeterminate. Stress ECG No ST changes. Arrhythmias None. Report Signatures
== END 2020-01-12 08:15 | disposition home or self-care (01) ==
PROVIDERS: PCP Family Medicine; Visit Provider Internal Medicine Cardiovascular Disease
DX: I50.40 Unspecified combined systolic (congestive) and diastolic (congestive) heart failure (principal); R07.89 Other chest pain
CPT/HCPCS: 78452; 93017; A9502; J2785

== ENCOUNTER 2020-01-27 02:25 | Day surgery (SDC) | payer OTHER, SELFPAY ==
[2020-01-24 13:05] VITALS: BMI 30.2
--- NOTE | 2020-01-27 07:26 | WPDHPUPDATE1 ---
History and Physical Update Update Date/Time: 01/27/20 07:26 History and Physical has been reviewed, including an updated exam of the patient. There are NO changes in the patient's condition. Risks, benefits, and alternatives have been discussed and questions answered. Patient agrees to proceed with procedure.
--- NOTE | 2020-01-27 07:41 | WPDANESEPPF ---
Anes - Initial Pre Proc Eval Procedure: Operation Date: 01/27/20 09:30 Proposed Procedures p Right Foot Debridement With Application Of Graft And Casting - Vipul Canela MD Date/Time: 01/27/20 07:41 Surgeon: Vipul Canela MD Pre Op Diagnosis: Right Diabetic Foot Ulcer Patient Data Age: 64 Gender: M Height: 1.8 m Weight: 98.18 kg Allergies Allergy/AdvReac Type Severity Reaction Status Date / Time No Known Allergies Allergy Mild Verified 01/24/20 13:09 Home Medications Medication Instructions Recorded Confirmed Type acetaminophen 500 mg PO Q6H PRN #100 tablet 12/24/19 01/24/20 Rx aspirin 81 mg PO QAM 30 Days #30 tablet 12/24/19 01/24/20 Rx atorvastatin 40 mg PO DAILY 30 Days #30 tablet 12/24/19 01/24/20 Rx furosemide 40 mg PO DAILY 30 Days #30 tablet 12/24/19 01/24/20 Rx hydrocodone-acetaminophen 1 tablet PO Q4H PRN #20 tablet 12/24/19 01/24/20 Rx losartan 25 mg PO QAM 30 Days #30 tablet 12/24/19 01/24/20 Rx metoprolol succinate [Toprol XL] 25 mg PO QAM 30 Days #30 tablet 12/24/19 01/24/20 Rx pantoprazole 40 mg PO QAM 30 Days #30 tablet 12/24/19 01/24/20 Rx potassium chloride [K-Tab] 20 meq PO DAILY 30 Days #30 tablet 12/24/19 01/24/20 Rx spironolactone 12.5 mg PO QAM 30 Days #15 tablet 12/24/19 01/24/20 Rx alprazolam 0.25 mg tablet 0.25 mg PO TID PRN #30 tablet 12/29/19 01/24/20 Rx blood sugar diagnostic #100 each 01/03/20 01/04/20 Rx pen needle, diabetic 31 gauge x #1,200 each 01/03/20 01/04/20 Rx / pen needle, diabetic 31 gauge x #100 each 01/04/20 01/04/20 Rx 5/16 insulin glargine 100 unit/mL (3 15 unit SUB-Q .qhs #3 ml 02/14/20 03/02/20 Rx mL) subcutaneous pen insulin lispro 100 unit/mL 9 unit SUB-Q TIDWM #3 syr 01/07/20 01/24/20 Rx subcutaneous pen insulin lispro 100 unit/mL See Rx Instructions .ROUTE 01/07/20 01/24/20 Rx subcutaneous pen .COMPLEX #3 ml ECG: Date of Service: 12/15/19 Procedure(s): CA 12 lead EKG Accession Number(s): [id number] cc: ~ Measurements Intervals [place] Rate: 99 P: -3 MA: 217 QRS: -81 QRSD: 180 T: 30 QT: 477 QTc: 613 Interpretive Statements SINUS RHYTHM WITH FIRST DEGREE AV BLOCK VENTRICULAR COUPLET AND FREQUENT VENTRICULAR PREMATURE COMPLEXES RIGHT BUNDLE BRANCH BLOCK ANTEROLATERAL INFARCT, AGE INDETERMINATE INFERIOR INFARCT, AGE INDETERMINATE ABNORMAL ECG Electronically Signed On 12-16-2019 6:43:37 [employer] by Leonides Gruber D.O. Dictated By: Leonides Gruber DO 12/15/191948 Patient hx anesthesia problems: none Family hx anesthesia problems: none [facility] Social History Social History Social History: He designates his daughter, Desi, to be his decision maker. The patient desires to be a full code. He is and lives alone. He still continues to use E cigarettes. Patient tends to drink 1-2 beers on nights. No illicit drugs. 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 He has 2 children. Years smoked: 44 Smoking status: Former smoker Tobacco type: cigarettes and e-cigarettes Additional smoking assessment comments: Smoked cigarettes x 44 years, switched to E cigarettes for the past 10 yrs Alcohol intake: current Drinks per week: 2 Substance use: never Substance use type: marijuana Last use: 12/09/2019 Additional occupation/education comments: Works in [employer] Gender identity (if verbalized by the patient): Male Spiritual care concerns: No Agree to blood products: Yes Anes - Eval Final PreProcedure Day of Procedure 01/27/20 07:41 Patient weight: obese Heart: regular rate and rhythm Lungs: clear to auscultation and normal air mov
[2020-01-27 08:30] VITALS: BP 118/68; PULSE 82; RESP 18; TEMP 36.4; O2SAT 100
[2020-01-27] MEDS: IBUPROFEN IV 800 MG/200 ML 800 MG/200 ML BAG 400 MG IVPB (08:30)
[2020-01-27] MEDS: LACTATED RINGERS 1,000 ML 30 ML IV CONT (08:30)
[2020-01-27 08:55] LABS: Glucose Point of Care 150 (65-105)
[2020-01-27] MEDS: ceFAZolin 2 GM/D5W 50 ML 2 GM/50 ML BAG IVPB (09:14)
--- NOTE | 2020-01-27 09:23 | SUR.PREOP ---
SPOKE W/ DAUGHTER TO BRING PT'S LIFE VEST TO HOSPITAL. DR. PINO AWARE THAT DTR WILL BRING IT BACK BUT WILL NOT BE HERE BEFORE PT TO OR. CIRC RN FLORENTIN Grant AND MIRI Trent AWARE. CRASH CART TO BE ON STAND BY IN OR ROOM. PT WILL BE DC'D WITH LIFE VEST IN PLACE.
[2020-01-27 10:26] VITALS: BP 113/69; PULSE 77; RESP 16; TEMP 36.4; O2SAT 95
[2020-01-27 10:29] LABS: Glucose Point of Care 134 (65-105)
--- NOTE | 2020-01-27 10:33 | P.OP_ITS ---
Procedure Note - Detailed Date of procedure: 01/27/20 Pre-op diagnosis: Right Diabetic Foot Ulcer Post-op diagnosis: same Procedure performed: Right foot excisional debridement of diabetic foot ulcer, application synthetic graft, application of total contact cast. Description of procedure: Indications: Patient is a 64-year-old gentleman with severe peripheral neuropathy and diabetes status post diabetic foot ulcer right foot. Initially underwent debridement and has been on the wound VAC system for the past 3 weeks. Wound has granulated and ready for graft application. Patient presents for debridement, application of graft and total contact cast. What was done: Patient identified in the preoperative holding. Informed consent given. Operative extremity marked. Patient received intravenous antibiotics. Patient brought to the operating room where underwent sedation by anesthesia team. Positioned supine on operating room table. Time-out performed confirming the patient, site of the surgery and the plan. Right leg prepped and draped usual sterile surgical fashion using a Betadine prep solution. Fifteen blade knife used to perform excisional debridement of the right foot plantar diabetic foot ulcer which is at the junction of the mid and forefoot. Skin, subcutaneous tissue, muscle and fascia sharply excised and removed. Rongeur used to excisional debride larger tissue fragments. Good viable tissue left in place. Good viable skin border noted. Wound then measured. Width 7 cm, length 2 cm, depth 1 cm. Thorough irrigation with antibiotic solution performed. Application of graft then performed. Amnion matrix 3 cc injectable amniotic tissue injected into the wound bed with 22 gauge needle. 3 x 3 cm amnio-excel amniotic membrane allograft tissue then applied to the wound. 3 x 3 cm primatrix with silver impregnated then used to fill up the 1 cm depth of the ulcer. Wound covered with the bioenginered synthetic skin replacement graft. Silicone layer stapled into position over the wound. Good coverage and closure noted. Sterile dressing applied. Total contact cast system then applied to the right leg. Patient awoken from anesthesia, taken to the recovery room in stable condition. All sponge needle and instrument counts correct in the case. Implants: Integra 7 x 7 cm omnigraft skin replacement, 3 x 3 cm primatrix Ag, 3 x 3 cm amnioExcel plus, 3 cc amniomatrix Anesthesia: MAC Surgeon: Vipul Canela MD Greige Goods Inspector: certified surgical first assistant Estimated blood loss (mL): 25 Tourniquet time (min): 0 Drains: No Packing: No Pathology: none sent Complications: None Condition: stable Disposition: PACU Findings: Right plantar diabetic foot ulcer 7 cm x 2 cm length by 1 cm depth
[2020-01-27 10:40] VITALS: BP 111/59; PULSE 75; RESP 16; O2SAT 100
[2020-01-27 10:55] VITALS: BP 113/74; PULSE 73; RESP 10; O2SAT 100
[2020-01-27 11:00] VITALS: BP 122/70; PULSE 78; RESP 16
--- NOTE | 2020-01-27 11:08 | SUR.PHASEII ---
1024 [id number] PT WEARS A LIFE VEST, PT WENT TO RECOVERY FIRST. DAUGHTER NOT HERE WITH LIFE VEST WAITING FOR HER JENNI COME BACK THEN WILL MOVE PT TO OUTPT. DAUGHTER HERE WITH VEST PT MOVED TO ROOM 15 OP. PT DID WELL, VSS, NO CP, O2 GOOD
[2020-01-27 13:00] VITALS: BP 114/83; PULSE 76; RESP 16
--- NOTE | 2020-01-27 14:15 | SUR.PHASEI ---
1025 pt was originally a givs pt, but with himrecently being placed on a life vest, fredi sanchez, thought pt would be better off going to pacu after surgery to be monitored closely for awhile. pt was stable and had no complications.
== END 2020-01-27 12:10 | disposition home or self-care (01) ==
PROVIDERS: PCP Family Medicine; Visit Provider Orthopaedic Surgery
PROC: (CPT 15275; principal; 2020-01-27 09:30)
DX: Z48.1 Encounter for planned postprocedural wound closure (principal); E11.621 Type 2 diabetes mellitus with foot ulcer; L97.519 Non-pressure chronic ulcer of other part of right foot with unspecified severity; E11.40 Type 2 diabetes mellitus with diabetic neuropathy, unspecified; I25.10 Atherosclerotic heart disease of native coronary artery without angina pectoris; I50.9 Heart failure, unspecified; F41.8 Other specified anxiety disorders; M19.90 Unspecified osteoarthritis, unspecified site; I25.2 Old myocardial infarction; E78.5 Hyperlipidemia, unspecified; F12.90 Cannabis use, unspecified, uncomplicated; F17.290 Nicotine dependence, other tobacco product, uncomplicated; Z79.4 Long term (current) use of insulin; Z79.82 Long term (current) use of aspirin; Z95.1 Presence of aortocoronary bypass graft; Z95.5 Presence of coronary angioplasty implant and graft; Z87.820 Personal history of traumatic brain injury; E66.9 Obesity, unspecified; Z68.29 Body mass index [BMI] 29.0-29.9, adult
CPT/HCPCS: 15275; 15276; 15004; J0690; J1741; J2250; J3010; J7120; Q4105; Q4110; Q4137; Q4139

== ENCOUNTER 2020-01-28 12:20 | Outpatient (CLI) | payer OTHER, SELFPAY ==
[2020-01-28 13:53] LABS: Alanine Aminotransferase 14 U/L (4-50); Albumin Level 3.8 g/dL (3.5-5.1); Alkaline Phosphatase 104 U/L (38-126); Aspartate Amino Transferase 20 U/L (17-59); Bilirubin,Total 0.8 mg/dL (0.2-1.3); Blood Urea Nitrogen 13 mg/dL (9-20); Calcium 8.9 mg/dL (8.4-10.2); Carbon Dioxide 29 mmol/L (22-30); Chloride 102 mmol/L (98-107); Estimated Glomerular Filt Rate > 60; Glucose 92 mg/dL (75-110); Magnesium 1.9 mg/dL (1.6-2.3); Potassium 3.9 mmol/L (3.4-5.0); Sodium 137 mmol/L (137-145)
== END 2020-01-28 12:21 | disposition home or self-care (01) ==
LOC: ANHLAB 12:22
PROVIDERS: PCP Family Medicine; Visit Provider Physician Assistant
DX: I50.40 Unspecified combined systolic (congestive) and diastolic (congestive) heart failure (principal); E11.9 Type 2 diabetes mellitus without complications
CPT/HCPCS: 36415; 80053; 83735

== ENCOUNTER 2020-03-16 08:02 | Outpatient (CLI) | payer OTHER, SELFPAY ==
--- NOTE | 2020-03-16 | ECHO_ITS ---
Patient Info Name: Preston Morris Age: 64 years : 1955 Gender: Male Ht: 71 in Wt: 216 lbs BSA: 2.24 m2 HR: 74 bpm BP: 128 / 72 mmHg Technical Quality: Good Exam Date: 03/16/2020 8:29 AM Exam Location: [facility] Patient Status: Outpatient Admit Date: 03/16/2020 Staff Ordering Physician: Leonides Gruber DO Fixed Income Director: Osiel Willingham, FELICIANO, RT Attending Provider: Leonides Gruber DO Referring Physician: Yasmani FISH; Exam Type: CA echo doppler color flow Study Info Indications I50.9 - Heart failure, unspecified Complete two-dimensional, color flow and Doppler transthoracic echocardiogram is performed. Summary 1. Left ventricular chamber dimension is moderately enlarged. 2. Left ventricular systolic function is moderately reduced, estimated at 35-40%. 3. There is mildly increased left ventricular wall thickness. 4. The left ventricular diastolic function is grade III diastolic dysfunction. 5. E/e' 11 is mildly elevated. 6. Global longitudinal strain is abnormal at -8.0%. 7. Left atrial chamber dimension is mildly enlarged. 8. Right atrial chamber dimension is mildly enlarged. 9. There is moderate aortic valve sclerosis. 10. There is trace aortic valve regurgitation. 11. There is mild to moderate mitral valve regurgitation. 12. There is mild tricuspid valve regurgitation. 13. No pulmonary hypertension, estimated pulmonary arterial systolic pressure is 38 mmHg. 14. There is trace pulmonic regurgitation. 15. Dilated inferior vena cava with >50% collapse upon inspiration consistent with elevated right atrial pressure, 10 mmHg. Left Ventricle E/e' 11 is mildly elevated. Global longitudinal strain is abnormal at -8.0%. Left ventricular chamber dimension is moderately enlarged. Left ventricular systolic function is moderately reduced, estimated at 35-40%. There is mildly increased left ventricular wall thickness. The left ventricular diastolic function is grade III diastolic dysfunction. Right Ventricle Right ventricular chamber dimension is normal. Right ventricular systolic function is normal. Left Atria Left atrial chamber dimension is mildly enlarged. Right Atria Right atrial chamber dimension is mildly enlarged. Aortic Valve The aortic valve is trileaflet. There is moderate aortic valve sclerosis. There is no aortic valve stenosis. There is trace aortic valve regurgitation. Pulmonic Valve There is trace pulmonic regurgitation. Mitral Valve There is no mitral valve stenosis. There is mild to moderate mitral valve regurgitation. Tricuspid Valve There is mild tricuspid valve regurgitation. No pulmonary hypertension, estimated pulmonary arterial systolic pressure is 38 mmHg. Pericardium/Pleural There is no pericardial effusion. Inferior Vena Cava Dilated inferior vena cava with >50% collapse upon inspiration consistent with elevated right atrial pressure, 10 mmHg. Aorta The aortic root size at the sinus of Valsalva is normal. Left Ventricular Outflow Tract Name Value Normal LVOT 2D LVOT Diameter 2.2 cm LVOT Doppler LVOT Peak Gradient 4 mmHg
[2020-03-16 08:42] LABS: Cholesterol 117 mg/dL (0-200); HDL Direct 28 mg/dL; Triglycerides 72 mg/dL (<150)
[2020-03-16 08:53] LABS: LDL Cholesterol Direct 71 mg/dL
[2020-03-16 08:59] LABS: Alanine Aminotransferase 17 U/L (4-50); Albumin Level 3.9 g/dL (3.5-5.1); Alkaline Phosphatase 118 U/L (38-126); Aspartate Amino Transferase 20 U/L (17-59); Bilirubin,Total 0.7 mg/dL (0.2-1.3); Blood Urea Nitrogen 11 mg/dL (9-20); Calcium 9.5 mg/dL (8.4-10.2); Carbon Dioxide 30 mmol/L (22-30); Chloride 104 mmol/L (98-107); Estimated Glomerular Filt Rate > 60; Glucose 55 mg/dL (75-110); Sodium 138 mmol/L (137-145)
== END 2020-03-16 08:03 | disposition home or self-care (01) ==
PROVIDERS: PCP Family Medicine; Visit Provider Internal Medicine Cardiovascular Disease
DX: E78.5 Hyperlipidemia, unspecified (principal); I50.9 Heart failure, unspecified; I51.7 Cardiomegaly; I35.8 Other nonrheumatic aortic valve disorders; I08.1 Rheumatic disorders of both mitral and tricuspid valves
CPT/HCPCS: 36415; 80053; 80061; 93306

== ENCOUNTER 2020-03-31 07:50 | Outpatient (RCR) | payer OTHER, SELFPAY ==
--- NOTE | 2020-01-04 10:26 | PM.PNORT ---
Progress Note: A&P Assessment and Plan (1) Foot abscess, right: Code(s): L02.611 - Cutaneous abscess of right foot Status: Acute (2) Type 2 diabetes mellitus with diabetic neuropathy, unspecified: Qualifiers: Diabetes mellitus long-term insulin use: unspecified long-term insulin use status Qualified Code(s): E11.40 - Type 2 diabetes mellitus with diabetic neuropathy, unspecified Code(s): E11.40 - Type 2 diabetes mellitus with diabetic neuropathy, unspecified Status: Chronic (3) Diabetic foot ulcer: Qualifiers: Diabetic foot ulcer location: midfoot Diabetes mellitus type: type 2 Laterality: right Non-pressure ulcer stage: with muscle involvement without evidence of necrosis Qualified Code(s): E11.621 - Type 2 diabetes mellitus with foot ulcer; L97.415 - Non-pressure chronic ulcer of right heel and midfoot with muscle involvement without evidence of necrosis Code(s): E11.621 - Type 2 diabetes mellitus with foot ulcer; L97.509 - Non-pressure chronic ulcer of other part of unspecified foot with unspecified severity Status: Chronic Assessment and Plan: Discussed nonoperative and operative treatment options with the patient. Risks and benefits of each as well as alternatives were reviewed. All of the patient's questions were answered. The risks of surgery reviewed including but not limited to: Neurovascular damage, wound complication, infection, blood clot, pulmonary embolus, stroke, myocardial infarction, and anesthetic risks up to and including . Continued pain and possible dysfunction were explained. Specific risks of the procedure including later recurrence of deformity. No guarantees were offered. If hardware used, discussed risk of failure/ breakage and possible need for removal. If complications occur, the patient understands the need for further treatment, possible further surgery. Patient verbalizes understanding and wishes to proceed. PLAN: Excisional debridement of right foot diabetic foot ulcer down to muscle Medically necessary for wound VAC right foot. We will discuss with home health about getting this applied. Silver gel ointment with dressing changes daily in the interim. Offload with fracture boot. Follow up in wound clinic in 1 week for wound VAC evaluation, follow-up with in 2 weeks in wound clinic. Subjective Subjective Date/Time Seen: 01/04/20 10:15 Patient was consult in the hospital for right plantar diabetic foot ulcer. Debrided by General surgery at the bedside. Was discharged on wound VAC. Presents to the [facility] wound clinic for follow-up visit since being in the hospital. [facility] was [facility]. Was discharged home 5 days ago. No complaints of pain right foot. Denies fever chills. They have left a dressing in place since a [facility]. He has a fracture boot for ambulation. Review of Systems Constitutional: Constitutional: Denies chills, Reports night sweats and Denies weakness Eyes: Eyes: Reports no additional eye complaints ENT: Reports Normal hearing present Cardiovascular: Cardiovascular: Denies chest pain, Reports pedal edema (Right Foot ) and Denies lightheadedness Respiratory: Respiratory: Denies cough, Denies dyspnea and Denies wheezing Gastrointestinal: Gastrointestinal: Denies constipation, Denies diarrhea, Denies nausea and Denies vomiting Musculoskeletal: Comments: Right DFU Integumentary/Breasts: Comments: Redness/warmth/swelling right plantar/dorsal forefoot to midfoot Neurologic: Reports numbness Comments: Numbness/Tingling b/l feet Psychiatric: Psychiatric: Denies anxiety and Denies depression Exam Const: General: comfortable and no acute distress Orientation/consciousness: oriented to person, oriented to place, oriented to time and No confusion HENMT: Head: normal to inspection, normocephalic and atraumatic Eyes: Conjunctivae: conjunctivae normal Scl
--- NOTE | 2020-01-04 10:31 | PM.PROC ---
Procedure Note - Detailed Date of procedure: 01/04/20 Pre-op diagnosis: right plantar foot-diabetic ulcer-wound vac Right diabetic foot ulcer with necrotic tissue and fibrinous exudate Post-op diagnosis: same Procedure performed: Excisional debridement of right diabetic foot ulcer down to muscle Description of procedure: Patient identified in holding. Informed consent given. Operative extremity marked. Time-out performed confirming the patient, site of the surgery and the plan. Right foot prepped and draped with alcohol prep solution. Fifteen blade knife used to sharply excise skin, subcutaneous tissue, muscle and devitalized tissue. Tissue passed off. Wound cleansed with alcohol prep solution. Sterile dressing applied. Patient tolerated without incident and no complications. Wound measures 7 x 2 cm with 2 cm depth. Anesthesia: none Surgeon: Vipul Canela MD Estimated blood loss (mL): 1 Drains: No Packing: Yes Pathology: none sent Complications: No immediate complications Condition: stable
[2020-01-04 14:04] VITALS: BMI 32.1
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
--- NOTE | 2020-02-01 08:49 | P.PNOP_ITS ---
Progress Note: A&P Assessment and Plan (1) Aftercare following surgery of the musculoskeletal system: Code(s): Z47.89 - Encounter for other orthopedic aftercare Status: Acute Assessment and Plan: Postoperative day 5. Status post debridement of right diabetic foot ulcer, application graft and total contact cast. Dressing change today. Cast appears viable. No signs of infection. New sterile dressing applied followed by total contact cast. Follow up in 1 week for cast change. Discussed removal of silicone layer in 2 weeks. 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 Patient reports no interim complaints or problems. No fever or chills. No problems eating or voiding. Exam Const: General: comfortable and no acute distress Orientation/consciousness: oriented to person, oriented to place, oriented to time and No confusion HENMT: Head: normal to inspection, normocephalic and atraumatic Eyes: Conjunctivae: conjunctivae normal Sclera: sclerae normal Neck: Neck: supple and nontender Resp: Effort & Inspection: normal respiratory effort Cardio: Rate: regular rate Rhythm: regular rhythm Skin: General skin exam: no rashes or lesions noted Neuro: General: oriented to person, oriented to place, oriented to time and No confusion Cognition (Neuro): normal cognition Sensory Exam: No normal sensation (insensate to midshin bilaterally ) Extrem: Right lower extremity: foot Other: Cast and Dressing removed right plantar foot. Surrounding tissue with improvement in redness/warmth/swelling. No redness surrounding the 5th toe- stable. No redness dorsum of the foot, ankle or leg. Palpable pedal pulses/ posterior tibial pulses. Insensate from toes to midshin bilaterally. No pain. Wound shows good incorporation of the graft with viable tissue. [place] in place. Psych: Mental Status: mental status grossly normal Affect: normal affect Objective Data Meds/Results Medications: Active Medications Generic Name Dose Route Start Last Admin Trade Name Freq PRN Reason Stop Dose Admin Silver Nitrate 1 applic 01/04/20 10:24 Silvergel TOPICAL 04/03/20 10:00 PRN PRN Wound Care Wound Care/Dressing Products 1 each 01/10/20 14:07 Mepilex 4x4 Foam Bandage TOPICAL 04/09/20 23:55 PRN PRN Wound Care Fracture/Casting/Strapping Pre Procedure Consent was obtained, Procedures/risks were explained, Questions were answered, Correct patient identified and Correct side and site confirmed Episode of Care Return Visit (right foot) Casting Cast: Total Contact Leg Cast (right) Modification and Status: Diabetic Application Exam of Affected Area: Color: Normal, Temp: Normal, Pulse: Normal, Blanching: Normal, Capillary Refill: Normal and Sensory Exam: Abnormal (neuropathy) Swelling: Yes (mild) and Tenderness: No Skin Apperance: Clean and Dry Care: Alcohol Wipes Patient Tolerated Procedure Well: Yes Post Procedure Patient tolerated the procedure well?: Tolerated procedure well
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
== END 2020-04-03 23:59 | disposition home or self-care (01) ==
LOC: ANHWOC 07:50
PROVIDERS: PCP Family Medicine; Visit Provider Orthopaedic Surgery
DX: E11.621 Type 2 diabetes mellitus with foot ulcer (principal); L97.519 Non-pressure chronic ulcer of other part of right foot with unspecified severity
CPT/HCPCS: 11043; 29445; 97605; 97606; 99212; 99213; G0463

== ENCOUNTER 2020-04-25 08:07 | Outpatient (CLI) | payer OTHER, SELFPAY ==
[2020-04-25 09:11] LABS: Alanine Aminotransferase 13 U/L (4-50); Albumin Level 4.2 g/dL (3.5-5.1); Alkaline Phosphatase 110 U/L (38-126); Aspartate Amino Transferase 18 U/L (17-59); Bilirubin,Total 0.7 mg/dL (0.2-1.3); Blood Urea Nitrogen 15 mg/dL (9-20); Calcium 9.8 mg/dL (8.4-10.2); Carbon Dioxide 31 mmol/L (22-30); Chloride 102 mmol/L (98-107); Estimated Glomerular Filt Rate > 60; Glucose 91 mg/dL (75-110); Sodium 140 mmol/L (137-145)
== END 2020-04-25 08:08 | disposition home or self-care (01) ==
PROVIDERS: PCP Family Medicine; Visit Provider Physician Assistant
DX: E11.42 Type 2 diabetes mellitus with diabetic polyneuropathy (principal)
CPT/HCPCS: 36415; 80053

== ENCOUNTER 2020-06-27 07:35 | Outpatient (RCR) | payer OTHER, SELFPAY ==
[2020-04-04 00:02] VITALS: BMI 32.1
--- NOTE | 2020-04-25 12:01 | PM.IMHP ---
H&P: HPI History of Present Illness Chief complaint: right foot check Narrative: Preston Morris is a 64 year old male with a history of a right plantar foot ulcer which required previous debridement and graft application by Dr. Canela. Patient denies pain of the right foot or new ulcers. He is no longer requiring antibiotics. No fever, chills, nausea, vomiting or diarrhea. No new complaints. Review of Systems Constitutional: Constitutional: Denies chills, Reports night sweats and Denies weakness Eyes: Eyes: Reports no additional eye complaints ENT: Reports Normal hearing present Cardiovascular: Cardiovascular: Denies chest pain, Reports pedal edema (Right Foot ) and Denies lightheadedness Respiratory: Respiratory: Denies cough, Denies dyspnea and Denies wheezing Gastrointestinal: Gastrointestinal: Denies constipation, Denies diarrhea, Denies nausea and Denies vomiting Musculoskeletal: Musculoskeletal: Denies myalgias and Denies joint swelling Integumentary/Breasts: Skin/Breast: Denies change in hair and Denies nipple discharge Neurologic: Reports numbness Comments: Numbness/Tingling b/l feet Psychiatric: Psychiatric: Denies anxiety and Denies depression Endocrine: Endocrine: Denies palpitations Hematologic/Lymphatic: Hematologic/Lymphatic: Denies easy bleeding and Denies easy bruising Allergic/Immunologic: Allergic/Immunologic: Denies itchy eyes PMFSH Social History Social History Social History: He designates his daughter, Desi, to be his decision maker. The patient desires to be a full code. He is and lives alone. He still continues to use E cigarettes. Patient tends to drink 1-2 beers on nights. No illicit drugs. The patient works in [employer] with [employer]. He has 2 children. Years smoked: 44 Smoking status: Former smoker Tobacco type: cigarettes and e-cigarettes/vaping Additional smoking assessment comments: Smoked cigarettes x 44 years, switched to E cigarettes for the past 10 yrs Alcohol intake: current Drinks per week: 2 Substance use: never Substance use type: marijuana Last use: 12/09/2019 Additional occupation/education comments: Works in [employer] Gender identity (if verbalized by the patient): Male Spiritual care concerns: No Agree to blood products: Yes Meds Home Medications and Allergies Home Medications Medication Instructions Recorded Confirmed Type acetaminophen 500 mg PO Q6H PRN #100 tablet 12/24/19 04/25/20 Rx aspirin 81 mg PO QAM 30 Days #30 tablet 12/24/19 04/25/20 Rx pantoprazole 40 mg PO QAM 30 Days #30 tablet 12/24/19 04/25/20 Rx alprazolam 0.25 mg tablet 0.25 mg PO TID PRN #30 tablet 12/29/19 04/25/20 Rx blood sugar diagnostic #100 each 01/03/20 04/25/20 Rx pen needle, diabetic 31 gauge x #1,200 each 01/03/20 04/25/20 Rx 5/16 pen needle, diabetic 31 gauge x #100 each 01/04/20 04/25/20 Rx 5/16 furosemide 40 mg tablet 40 mg PO DAILY 30 Days #30 tablet 01/28/20 04/25/20 Rx losartan 25 mg tablet 25 mg PO QAM 30 Days #30 tablet 01/28/20 04/25/20 Rx metoprolol succinate 25 mg 25 mg PO QAM 30 Days #30 tablet 01/28/20 04/25/20 Rx tablet,extended release 24 hr potassium chloride 20 mEq 20 meq PO DAILY 30 Days #30 tablet 01/28/20 04/25/20 Rx tablet,extended release spironolactone 25 mg tablet 12.5 mg PO QAM 30 Days #15 tablet 01/28/20 04/25/20 Rx hydrocodone 5 mg-acetaminophen 325 1 tablet PO Q4H PRN #30 tablet 02/03/20 04/25/20 Rx mg tablet insulin glargine 100 unit/mL (3 15 unit SUB-Q .qhs #15 ml 02/21/20 04/25/20 Rx mL) subcutaneous pen atorvastatin 40 mg tablet 40 mg PO DAILY #90 tablet 04/24/20 04/25/20 Rx insulin lispro 100 unit/mL See Rx Instructions .ROUTE 04/24/20 04/25/20 Rx subcutaneous pen .COMPLEX #3 ml Allergies Allergy/AdvReac Type Severity Reaction Status Date / Time No Known Allergies Allergy Mild Verified 04/24/20 10:35 Exam
--- NOTE | 2020-06-27 09:59 | PM.IMHP ---
H&P: HPI History of Present Illness Date/Time: 06/27/20 09:59 Chief complaint: right foot check Narrative: Preston Morris is a 64 year old male with a history of a right plantar foot ulcer which required previous debridement and graft application by Dr. Canela. Patient denies pain of the right foot or new ulcers. He is no longer requiring antibiotics. No fever, chills, nausea, vomiting or diarrhea. No new complaints. Wound remains well healed. He was recently fit with custom orthotics/depth shoes. Tolerating well. Review of Systems Constitutional: Constitutional: Denies chills, Reports night sweats and Denies weakness Eyes: Eyes: Reports no additional eye complaints ENT: Reports Normal hearing present Cardiovascular: Cardiovascular: Denies chest pain, Reports pedal edema (Right Foot ) and Denies lightheadedness Respiratory: Respiratory: Denies cough, Denies dyspnea and Denies wheezing Gastrointestinal: Gastrointestinal: Denies constipation, Denies diarrhea, Denies nausea and Denies vomiting Musculoskeletal: Musculoskeletal: Denies myalgias and Denies joint swelling Integumentary/Breasts: Skin/Breast: Denies change in hair and Denies nipple discharge Neurologic: Reports numbness Comments: Numbness/Tingling b/l feet Psychiatric: Psychiatric: Denies anxiety and Denies depression Endocrine: Endocrine: Denies palpitations Hematologic/Lymphatic: Hematologic/Lymphatic: Denies easy bleeding and Denies easy bruising Allergic/Immunologic: Allergic/Immunologic: Denies itchy eyes PMFSH Social History Social History Social History: He designates his daughter, Desi, to be his decision maker. The patient desires to be a full code. He is and lives alone. He still continues to use E cigarettes. Patient tends to drink 1-2 beers on nights. No illicit drugs. 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 He has 2 children. Years smoked: 44 Smoking status: Former smoker Tobacco type: cigarettes and e-cigarettes/vaping Additional smoking assessment comments: Smoked cigarettes x 44 years, switched to E cigarettes for the past 10 yrs Alcohol intake: current Drinks per week: 2 Substance use: never Substance use type: marijuana Last use: 12/09/2019 Additional occupation/education comments: Works in [employer] Gender identity (if verbalized by the patient): Male Spiritual care concerns: No Agree to blood products: Yes Meds Home Medications and Allergies Home Medications Medication Instructions Recorded Confirmed Type aspirin 81 mg PO QAM 30 Days #30 tablet 12/24/19 06/01/20 Rx pen needle, diabetic 31 gauge x #1,200 each 01/03/20 06/01/20 Rx 5/16 pen needle, diabetic 31 gauge x #100 each 01/04/20 06/01/20 Rx 5/16 furosemide 40 mg tablet 40 mg PO DAILY 30 Days #30 tablet 01/28/20 06/01/20 Rx losartan 25 mg tablet 25 mg PO QAM 30 Days #30 tablet 01/28/20 06/01/20 Rx metoprolol succinate 25 mg 25 mg PO QAM 30 Days #30 tablet 01/28/20 06/01/20 Rx tablet,extended release 24 hr potassium chloride 20 mEq 20 meq PO DAILY 30 Days #30 tablet 01/28/20 06/01/20 Rx tablet,extended release spironolactone 25 mg tablet 12.5 mg PO QAM 30 Days #15 tablet 01/28/20 06/01/20 Rx insulin glargine 100 unit/mL (3 15 unit SUB-Q .qhs #15 ml 02/21/20 06/01/20 Rx mL) subcutaneous pen atorvastatin 40 mg tablet 40 mg PO DAILY #90 tablet 04/24/20 06/01/20 Rx insulin lispro 100 unit/mL See Rx Instructions .ROUTE 04/24/20 06/01/20 Rx subcutaneous pen .COMPLEX #3 ml lancets 30 gauge #100 each 05/11/20 06/01/20 Rx alprazolam 0.25 mg tablet 0.25 mg PO TID PRN #30 tablet 06/12/20 Rx blood sugar diagnostic #300 each 06/12/20 Rx Allergies Allergy/AdvReac Type Severity Reaction Status Date / Time No Known Allergies Allergy Mild Verified 06/01/20 08:43 Exam Const: General: comfortable and no acute distress Orientation/conscio
== END 2020-07-10 07:32 | disposition home or self-care (01) ==
LOC: ANHWOC 07:35
PROVIDERS: PCP Family Medicine; Visit Provider Orthopaedic Surgery
DX: E11.621 Type 2 diabetes mellitus with foot ulcer (principal); L97.419 Non-pressure chronic ulcer of right heel and midfoot with unspecified severity
CPT/HCPCS: 11043; 99212; G0463

== ENCOUNTER 2020-12-18 12:34 | Outpatient (CLI) | payer OTHER, SELFPAY ==
--- NOTE | 2020-12-18 12:50 | ECHO_ITS ---
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 Contrast/Agitated Saline Contrast/Ag. Saline: Definity Amount: 1.50 ml Administered By: Jesenia Segura RN New IV Access: Inner Forearm and Left Site Condition: IV removed and No extravasation Summary 1. Left ventricular chamber dimension is mildly enlarged. 2. Definity contrast administered improved wall motion interpretation. 3. Left ventricular systolic function is moderately reduced, estimated at 40-45%. 4. The left ventricular diastolic function is grade I diastolic dysfunction. 5. E/e' 7 is not elevated. 6. Left atrial chamber dimension is mildly enlarged. 7. There is moderate aortic valve sclerosis. 8. There is trace aortic valve regurgitation. 9. The mitral valve has mildly calcified annulus. 10. No pulmonary hypertension, estimated pulmonary arterial systolic pressure is 16 mmHg. Left Ventricle E/e' 7 is not elevated. Definity contrast administered improved wall motion interpretation. Left ventricular chamber dimension is mildly enlarged. Left ventricular systolic function is moderately reduced, estimated at 40-45%. The left ventricular diastolic function is grade I diastolic dysfunction. Right Ventricle Right ventricular chamber dimension is normal. Right ventricular systolic function is normal. Left Atria Left atrial chamber dimension is mildly enlarged. Right Atria Right atrial chamber dimension is normal. Aortic Valve The aortic valve is trileaflet. There is moderate aortic valve sclerosis. There is no aortic valve stenosis. There is trace aortic valve regurgitation. Pulmonic Valve There is no pulmonic regurgitation. Mitral Valve The mitral valve has mildly calcified annulus. There is no mitral valve stenosis. There is no mitral valve regurgitation. Tricuspid Valve There is no tricuspid valve regurgitation. No pulmonary hypertension, estimated pulmonary arterial systolic pressure is 16 mmHg. Pericardium/Pleural There is no pericardial effusion. Inferior Vena Cava Normal inferior vena cava with >50% collapse upon inspiration consistent with normal right atrial pressure, 5 mmHg. Aorta The aortic root size at the sinus of Valsalva is normal. Left Ventricular Outflow Tract Name Value Normal LVOT 2D LVOT Diameter 2.01 cm LVOT Doppler
== END 2020-12-18 12:35 | disposition home or self-care (01) ==
LOC: ANHCARD 12:35
PROVIDERS: Family Provider Family Medicine; PCP Family Medicine; Visit Provider Internal Medicine Cardiovascular Disease
DX: I50.40 Unspecified combined systolic (congestive) and diastolic (congestive) heart failure (principal); I35.8 Other nonrheumatic aortic valve disorders
CPT/HCPCS: C8929

== ENCOUNTER 2021-01-04 08:32 | Outpatient (CLI) | payer OTHER, SELFPAY ==
--- NOTE | 2021-01-04 12:00 | NEURO_ITS ---
Impression: # Insulin dependent diabetic complains of increasing numbness and weakness. 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 Nerve Conduction Studies Anti Sensory Summary Table Stim Site NR Peak (ms) P-T Amp (?V) Site1 Site2 Delta-P (ms) Dist (cm) Jamie (m/s) Left Median Anti Sensory (2-3nd Digit) Wrist 5.3 12.1 Wrist 2-3nd Digit 5.3 14.0 26 Wrist NR Wrist 2-3nd Digit 5.3 14.0 26 Right Median Anti Sensory (2-3nd Digit) Wrist 3.4 21.6 Wrist 2-3nd Digit 3.4 14.0 41 Wrist 6.1 15.7 Wrist 2-3nd Digit 3.4 14.0 41 Left Radial Anti Sensory (Base 1st Digit) Wrist 3.6 30.2 Wrist Base 1st Digit 3.6 0.0 Right Radial Anti Sensory (Base 1st Digit) NO RESPONSE Wrist NR Wrist Base 1st Digit 0.0 Left Ulnar Anti Sensory (5th Digit) Wrist 4.1 3.6 Wrist 5th Digit 4.1 14.0 34 Right Ulnar Anti Sensory (5th Digit) NO RESPONSE Wrist NR Wrist 5th Digit 14.0 Motor Summary Table Stim Site NR Onset (ms) O-P Amp (mV) Site1 Site2 Delta-0 (ms) Dist (cm) Jamie (m/s) Left Median Motor (Abd Poll Brev) Wrist 5.1 1.9 Elbow Wrist 7.3 31.0 42 Elbow 12.4 1.8 Right Median Motor (Abd Poll Brev) Wrist 5.1 3.2 Elbow Wrist 7.4 31.0 42 Elbow 12.5 2.1 Left Ulnar Motor (Abd Dig Minimi) Wrist 3.5 1.0 A Elbow Wrist 9.1 31.0 34 A Elbow 12.6 0.7 B Elbow Wrist 6.0 26.0 43 B Elbow 9.5 0.6 Right Ulnar Motor (Abd Dig Minimi) Wrist 4.5 2.1 A Elbow Wrist 10.0 31.0 31 A Elbow 14.5 1.4 B Elbow Wrist 8.1 25.0 31 B Elbow 12.6 1.5 F Wave Studies NR F-Lat (ms) L-R F-Lat (ms) Left Median (Mrkrs) (Abd Poll Brev) 33.16 0.21 Right Median (Mrkrs) (Abd Poll Brev) 32.94 0.21 Left Ulnar (Mrkrs) (Abd Dig Min) 32.61 1.61 Right Ulnar (Mrkrs) (Abd Dig Min) 30.99 1.61 EMG Side Muscle Nerve Root Ins Act Fibs Amp Dur Recrt Comment Right 1stDorInt Ulnar C8-T1 Nml Nml Nml >12ms Reduced Right Ext Indicis Radial (Post Int) C7-8 Nml Nml Nml Nml Reduced Right Ext Digitorum Radial (Post Int) C7-8 Nml Nml Nml Nml Reduced Right BrachioRad Radial C5-6 Nml Nml Nml Nml Nml Right PronatorTeres Median C6-7 Nml Nml Nml Nml Nml Right Abd Poll Brev Median C8-T1 Nml Nml Nml >12ms Reduced Right Brachialis Musculocut C5-6 Nml Nml Nml >12ms Reduced Right ABD Dig Min Ulnar C8-T1 Nml Nml Nml >12ms Reduced Left 1stDorInt Ulnar C8-T1 Nml Nml Nml >12ms Reduced Left Ext Indicis Radial (Post Int) C7-8 Nml Nml Nml Nml Nml Left Ext Digitorum Radial (Post Int) C7-8 Nml Nml Nml Nml Nml Left BrachioRad Radial C5-6 Nml Nml Nml Nml Nml Left PronatorTeres Median C6-7 Nml Nml Nml Nml Nml Left Abd Poll Brev Median C8-T1 Nml Nml Nml >12ms Reduced Left ABD Dig Min Ulnar C8-T1 Nml Nml Nml >12ms Reduced Left Brachialis Musculocut C5-6 Nml Nml Nml >12ms Reduced MTDD
== END 2021-01-04 08:33 | disposition home or self-care (01) ==
PROVIDERS: PCP Family Medicine; Visit Provider Family Medicine
DX: G62.9 Polyneuropathy, unspecified (principal)
CPT/HCPCS: 95886; 95911

== ENCOUNTER 2021-03-19 10:09 | Outpatient (CLI) | payer OTHER, SELFPAY ==
[2021-03-19 10:49] LABS: Hemoglobin A1C 9.9 % (<5.7)
[2021-03-19 10:50] LABS: Alanine Aminotransferase 24 U/L (4-50); Albumin Level 3.8 g/dL (3.5-5.1); Alkaline Phosphatase 150 U/L (38-126); Anion Gap 5 mmol/L (8-16); Aspartate Amino Transferase 25 U/L (17-59); Bilirubin,Total 0.4 mg/dL (0.2-1.3); Blood Urea Nitrogen 21 mg/dL (9-20); Calcium 8.6 mg/dL (8.4-10.2); Carbon Dioxide 25 mmol/L (22-30); Chloride 105 mmol/L (98-107); Estimated Glomerular Filt Rate > 60; Glucose 246 mg/dL (75-110); Potassium 4.4 mmol/L (3.4-5.0); Sodium 135 mmol/L (137-145)
== END 2021-03-19 10:10 | disposition home or self-care (01) ==
LOC: ANHLAB 10:12
PROVIDERS: PCP Family Medicine; Visit Provider Family Medicine
DX: E11.40 Type 2 diabetes mellitus with diabetic neuropathy, unspecified (principal); E78.2 Mixed hyperlipidemia; E87.1 Hypo-osmolality and hyponatremia; Z79.899 Other long term (current) drug therapy
CPT/HCPCS: 36415; 80053; 83036

== ENCOUNTER 2021-10-06 10:37 | Outpatient (CLI) | payer OTHER, SELFPAY ==
[2021-10-06 10:53] LABS: Basophils Percent Auto 0.5 % (0.2-1.2); Eosinophils Absolute Auto 0.2 K/mm3 (0-0.3); Eosinophils Percent Auto 3.3 % (0-4.4); Hematocrit 37.7 % (42.0-52.0); Hemoglobin 13.2 g/dL (14.0-18.0); Lymphocytes Absolute Auto 1.22 K/mm3 (0.9-3.2); Lymphocytes Percent Auto 20.1 % (18.3-44.2); Mean Corpuscular Hemoglobin 31.6 pg (26-34); Mean Corpuscular Volume 90.2 fl (80-100); Mean Platelet Volume 10.3 fl (7.4-10.4); Monocytes Absolute Auto 0.6 K/mm3 (0.1-0.6); Monocytes Percent Auto 10.5 % (2.6-8.5); Neutrophils Percent Auto 65.6 % (45.5-73.1); Platelet Count Result 168 k/mm3 (150-375); Red Blood Count 4.18 M/mm3 (4.6-6.20); Red Cell Distribution Width 14.6 % (11.5-14.5); White Blood Count 6.1 K/mm3 (4.5-10.0)
[2021-10-06 11:05] LABS: Alanine Aminotransferase 35 U/L (4-50); Albumin Level 4.1 g/dL (3.5-5.1); Alkaline Phosphatase 139 U/L (38-126); Anion Gap 8 mmol/L (8-16); Aspartate Amino Transferase 30 U/L (17-59); Bilirubin,Total 0.9 mg/dL (0.2-1.3); Blood Urea Nitrogen 21 mg/dL (9-20); Calcium 9.6 mg/dL (8.4-10.2); Carbon Dioxide 28 mmol/L (22-30); Chloride 102 mmol/L (98-107); Cholesterol 185 mg/dL (0-200); Estimated Glomerular Filt Rate 51; Glucose 241 mg/dL (65-110); HDL Direct 30 mg/dL; Potassium 4.4 mmol/L (3.4-5.0); Sodium 138 mmol/L (137-145); Triglycerides 230 mg/dL (<150)
[2021-10-06 11:16] LABS: LDL Cholesterol Direct 105 mg/dL
[2021-10-06 11:22] LABS: Free T4 Free Thyroxine 1.14 ng/mL (0.78-2.19)
[2021-10-06 11:36] LABS: Prostate Specific Antigen 0.2 ng/mL (< OR = 4.0)
== END 2021-10-06 10:38 | disposition home or self-care (01) ==
PROVIDERS: PCP Family Medicine; Visit Provider Family Medicine
DX: E78.2 Mixed hyperlipidemia (principal); E11.40 Type 2 diabetes mellitus with diabetic neuropathy, unspecified; I10 Essential (primary) hypertension; E11.621 Type 2 diabetes mellitus with foot ulcer; L97.509 Non-pressure chronic ulcer of other part of unspecified foot with unspecified severity; Z79.899 Other long term (current) drug therapy; Z12.5 Encounter for screening for malignant neoplasm of prostate
CPT/HCPCS: 36415; 80053; 80061; 83036; 84153; 84439; 84443; 85025; G0103

== ENCOUNTER 2022-07-03 15:10 | Outpatient (CLI) | payer OTHER, SELFPAY ==
--- NOTE | 2022-07-03 15:17 | ECHO_ITS ---
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 Summary 1. Complete two-dimensional, color flow and Doppler transthoracic echocardiogram is performed. 2. Left ventricular chamber dimension is moderately enlarged. 3. Left ventricular systolic function is moderately reduced, estimated at 40-45%. 4. The left ventricular diastolic function is abnormal. 5. E/e' 15 is elevated. 6. Right ventricular systolic function is reduced based on abnormal TAPSE 1.5 cm. 7. Left atrial chamber dimension is moderately enlarged. 8. Right atrial chamber dimension is moderately enlarged. 9. There is mild aortic valve sclerosis. 10. There is mild mitral valve regurgitation. 11. There is trace tricuspid valve regurgitation. 12. No pulmonary hypertension, estimated pulmonary arterial systolic pressure is 33 mmHg. Left Ventricle E/e' 15 is elevated. Left ventricular chamber dimension is moderately enlarged. Left ventricular systolic function is moderately reduced, estimated at 40-45%. The left ventricular diastolic function is abnormal. Right Ventricle Right ventricular systolic function is reduced based on abnormal TAPSE 1.5 cm. Right ventricular chamber dimension is not well visualized. Left Atria Left atrial chamber dimension is moderately enlarged. Right Atria Right atrial chamber dimension is moderately enlarged. Aortic Valve The aortic valve is trileaflet. There is mild aortic valve sclerosis. There is no aortic valve stenosis. There is no aortic valve regurgitation. Pulmonic Valve There is no pulmonic regurgitation. Mitral Valve There is no mitral valve stenosis. There is mild mitral valve regurgitation. Tricuspid Valve There is trace tricuspid valve regurgitation. No pulmonary hypertension, estimated pulmonary arterial systolic pressure is 33 mmHg. Pericardium/Pleural There is no pericardial effusion. Inferior Vena Cava Normal inferior vena cava with >50% collapse upon inspiration consistent with normal right atrial pressure, 5 mmHg. Aorta The aortic root size at the sinus of Valsalva is normal. Left Ventricular Outflow Tract Name Value Normal LVOT 2D LVOT Diameter 2.0 cm LVOT Doppler LVOT Peak Gradient 3 mmHg LVOT Mean Gradient 2 mmHg LVOT VTI 21 cm LVOT VTI/AV VTI Ratio 0.6 LVOT Stroke Volume
[2022-07-03 17:18] LABS: Alanine Aminotransferase 18 U/L (6-50); Albumin Level 3.6 g/dL (3.5-5.1); Alkaline Phosphatase 127 U/L (38-126); Anion Gap 5 mmol/L (8-16); Aspartate Amino Transferase 21 U/L (17-59); Bilirubin,Total 0.7 mg/dL (0.2-1.3); Blood Urea Nitrogen 17 mg/dL (9-20); Calcium 9.1 mg/dL (8.4-10.2); Carbon Dioxide 29 mmol/L (22-30); Chloride 98 mmol/L (98-107); Cholesterol 131 mg/dL (0-200); Estimated Glomerular Filt Rate > 60; Glucose 244 mg/dL (65-110); HDL Direct 22 mg/dL; Potassium 4.4 mmol/L (3.4-5.0); Sodium 132 mmol/L (137-145); Triglycerides 249 mg/dL (<150)
[2022-07-03 17:29] LABS: LDL Cholesterol Direct 56 mg/dL
== END 2022-07-03 15:11 | disposition home or self-care (01) ==
PROVIDERS: PCP Physician Assistant; Visit Provider Internal Medicine Cardiovascular Disease
DX: I50.40 Unspecified combined systolic (congestive) and diastolic (congestive) heart failure (principal); E78.5 Hyperlipidemia, unspecified; I34.0 Nonrheumatic mitral (valve) insufficiency; I70.0 Atherosclerosis of aorta
CPT/HCPCS: 36415; 80053; 80061; 93306

== ENCOUNTER → 2022-07-11 11:48 | Outpatient (CLI) | payer OTHER, SELFPAY ==
--- NOTE | ~2022-07-11 | XR_ITS ---
EXAMINATION: [id number] INDICATION: Left rib pain TECHNIQUE: A frontal view of the chest and 3 views of the left ribs were obtained. COMPARISON: 12/17/2019 FINDINGS: A mild diffuse interstitial pattern is present. The heart size is normal. Median sternotomy wires and mediastinal surgical clips are seen, likely from prior coronary artery bypass grafting. Th ere is no pleural effusion or pneumothorax. No displaced left rib fracture is identified. IMPRESSION: 1. No evidence of displaced rib fracture. 2. Mild pulmonary edema. Reviewed, dictated and finalized at location A.
== END ==
PROVIDERS: PCP Physician Assistant; Visit Provider Physician Assistant
DX: R07.89 Other chest pain (principal); J81.1 Chronic pulmonary edema
CPT/HCPCS: 71101

== ENCOUNTER 2022-08-29 07:21 | Outpatient (CLI) | payer OTHER, SELFPAY ==
[2022-08-29 07:36] LABS: Basophils Percent Auto 0.6 % (0.2-1.2); Eosinophils Absolute Auto 0.4 K/mm3 (0-0.3); Eosinophils Percent Auto 5.1 % (0-4.4); Hematocrit 34.7 % (42.0-52.0); Hemoglobin 11.8 g/dL (14.0-18.0); Immature Granulocyte Absolute 0.02 K/mm3 (0.00-0.031); Immature Granulocyte Percent A 0.3 % (0-0.5); Lymphocytes Percent Auto 22.8 % (18.3-44.2); Mean Corpuscular Hemoglobin 31.2 pg (26-34); Mean Corpuscular Volume 91.8 fl (80-100); Monocytes Absolute Auto 0.8 K/mm3 (0.1-0.6); Monocytes Percent Auto 11.3 % (2.6-8.5); Neutrophils Absolute Auto 4.2 K/mm3 (1.3-6.7); Neutrophils Percent Auto 59.9 % (45.5-73.1); Platelet Count Result 163 k/mm3 (150-375); Red Blood Count 3.78 M/mm3 (4.6-6.20); Red Cell Distribution Width 14.1 % (11.5-14.5)
[2022-08-29 07:56] LABS: Anion Gap 9 mmol/L (8-16); Blood Urea Nitrogen 21 mg/dL (9-20); Calcium 9.3 mg/dL (8.4-10.2); Carbon Dioxide 28 mmol/L (22-30); Chloride 102 mmol/L (98-107); Estimated Glomerular Filt Rate 60; Glucose 140 mg/dL (65-110); Potassium 3.8 mmol/L (3.4-5.0); Sodium 139 mmol/L (137-145)
[2022-08-29 08:08] LABS: Hemoglobin A1C 7.7 % (<5.7)
[2022-08-29 09:18] LABS: Creatinine Urine 78.4 mg/dL
[2022-08-29 10:57] LABS: MALB Creatinine Ratio 1208.3 mg/g (0-30); Microalbumin Urine Random 947.3 mg/L (0-16.7)
== END 2022-08-29 07:22 | disposition home or self-care (01) ==
LOC: ANHLAB 07:22
PROVIDERS: PCP Emergency Medicine; Visit Provider Physician Assistant
DX: E11.43 Type 2 diabetes mellitus with diabetic autonomic (poly)neuropathy (principal); E87.1 Hypo-osmolality and hyponatremia; E78.5 Hyperlipidemia, unspecified; Z79.899 Other long term (current) drug therapy
CPT/HCPCS: 36415; 80048; 82043; 83036; 84443; 85025

== ENCOUNTER 2022-09-02 10:33 | Outpatient (NON) | payer OTHER, SELFPAY ==
[2022-09-02 21:18] LABS: IFOB Positive Control Positive; Immunochemical Fecal Occult Bl Negative (N)
== END 2022-09-02 10:34 | disposition home or self-care (01) ==
PROVIDERS: PCP Family Medicine; Visit Provider Physician Assistant
DX: D64.9 Anemia, unspecified (principal)
CPT/HCPCS: 82274

== ENCOUNTER 2022-09-11 08:15 | Outpatient (CLI) | payer OTHER, SELFPAY ==
--- NOTE | ~2022-09-11 | US_ITS ---
EXAMINATION: US art doppler w press LE BI DATE: 09/11/2022 09:37 INDICATION: Claudication pain. Lower limb pain, numbness and tingling. Peripheral vascular disease ri sk factors of diabetes, hypertension and prior smoking. TECHNIQUE: Segmental pressures and plethysmographic and Doppler waveforms of the brachial and lower e xtremity arteries were obtained. COMPARISON: None. FINDINGS: Right radial artery pressure of 116 mm Hg. The left brachial artery pressures unable to be obtained d ue to inability to occlude the vessel. The right and left high-thigh pressure indices unable to be ob tained also due to inability to occlude the vessels at either the left or right high thigh. The right ankle-brachial index (YARIEL) is 1.16 (normal >= 0.9-1). The right great toe-brachial index (T BI) is 0.94 (normal >= 0.6-0.8). The right lower extremity segmental pressure gradients are normal (n ormal gradients <= 20-30 mmHg between adjacent levels on the same leg or the same levels on the two l egs). Arterial waveforms are biphasic with brisk systolic upstrokes throughout the arteries of the ri ght lower limb. The left YARIEL is 1.11. The left TBI is 0.96. The left lower extremity segmental pressure gradients are increased between the left above and [id number] popliteal arteries. Arterial waveforms are bipha sic with brisk systolic upstrokes throughout the arteries of the left lower limb. IMPRESSION: 1. Normal YARIEL's and TBI's bilaterally. No significant occlusive disease. 2. Inability to occlude the left brachial artery which could be due to vessel wall calcification or p ressure significantly higher than the right upper limb Potentially significant stenosis proximal to the right brachial artery. Could consider carotid CT ang iogram for further evaluation. Reviewed, dictated and finalized at location A. IMPRESSION: 1. Normal YARIEL's and TBI's bilaterally. No significant occlusive disease. 2. Inability to occlude the left brachial artery which could be due to vessel w all calcification or pressure significantly higher than the right upper limb Potentially significant stenosis proximal to the right brachial artery. Could c onsider carotid CT angiogram for further evaluation.
== END 2022-09-11 08:16 | disposition home or self-care (01) ==
PROVIDERS: PCP Family Medicine; Visit Provider Nurse Practitioner Family
DX: E11.9 Type 2 diabetes mellitus without complications (principal); G62.9 Polyneuropathy, unspecified; I73.9 Peripheral vascular disease, unspecified; I25.10 Atherosclerotic heart disease of native coronary artery without angina pectoris
CPT/HCPCS: 93923

== ENCOUNTER 2023-02-15 09:33 | Outpatient (CLI) | payer OTHER, MEDICARE, SELFPAY ==
[2023-02-15 09:54] LABS: Basophils Percent Auto 0.5 % (0.2-1.2); Eosinophils Absolute Auto 0.3 K/mm3 (0-0.3); Eosinophils Percent Auto 3.8 % (0-4.4); Hematocrit 38.8 % (42.0-52.0); Hemoglobin 13.1 g/dL (14.0-18.0); Immature Granulocyte Absolute 0.02 K/mm3 (0.00-0.031); Immature Granulocyte Percent A 0.3 % (0-0.5); Lymphocytes Absolute Auto 1.63 K/mm3 (0.9-3.2); Lymphocytes Percent Auto 25.1 % (18.3-44.2); Mean Corpuscular HGB Conc 33.8 g/dl (32-36); Mean Corpuscular Hemoglobin 30.8 pg (26-34); Mean Corpuscular Volume 91.3 fl (80-100); Mean Platelet Volume 10.1 fl (7.4-10.4); Monocytes Absolute Auto 0.6 K/mm3 (0.1-0.6); Monocytes Percent Auto 9.7 % (2.6-8.5); Neutrophils Absolute Auto 3.9 K/mm3 (1.3-6.7); Neutrophils Percent Auto 60.6 % (45.5-73.1); Platelet Count Result 168 k/mm3 (150-375); Red Blood Count 4.25 M/mm3 (4.6-6.20); White Blood Count 6.5 K/mm3 (4.5-10.0)
[2023-02-15 10:05] LABS: Alanine Aminotransferase 27 U/L (6-50); Alkaline Phosphatase 120 U/L (38-126); Anion Gap 7 mmol/L (8-16); Aspartate Amino Transferase 24 U/L (17-59); Bilirubin,Total 0.7 mg/dL (0.2-1.3); Blood Urea Nitrogen 19 mg/dL (9-20); Calcium 8.9 mg/dL (8.4-10.2); Carbon Dioxide 27 mmol/L (22-30); Chloride 103 mmol/L (98-107); Cholesterol 130 mg/dL (0-200); Estimated Glomerular Filt Rate 55; Glucose 170 mg/dL (65-110); HDL Direct 24 mg/dL; Potassium 3.9 mmol/L (3.4-5.0); Sodium 137 mmol/L (137-145); Triglycerides 195 mg/dL (<150)
[2023-02-15 10:16] LABS: LDL Cholesterol Direct 67 mg/dL
[2023-02-15 10:34] LABS: Prostate Specific Antigen 0.2 ng/mL (< OR = 4.0)
[2023-02-15 10:52] LABS: Hemoglobin A1C 6.2 % (<5.7)
[2023-02-15 12:59] LABS: Hepatitis C Virus Antibody Negative (Negative)
[2023-02-15 22:02] LABS: Total Triiodothyronine (T3) 1.25 NG/ML (0.97-1.69)
== END 2023-02-15 09:34 | disposition home or self-care (01) ==
PROVIDERS: PCP Family Medicine; Visit Provider Physician Assistant
DX: Z00.00 Encounter for general adult medical examination without abnormal findings (principal); E11.43 Type 2 diabetes mellitus with diabetic autonomic (poly)neuropathy; E78.5 Hyperlipidemia, unspecified; Z11.59 Encounter for screening for other viral diseases; Z79.899 Other long term (current) drug therapy; Z12.5 Encounter for screening for malignant neoplasm of prostate
CPT/HCPCS: 36415; 80053; 80061; 83036; 84153; 84439; 84443; 84480; 85025; 86803; G0103

== ENCOUNTER 2023-08-25 12:31 | Outpatient (CLI) | payer MEDICARE, SELFPAY ==
--- NOTE | 2023-08-25 12:45 | ECHO_ITS ---
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 Contrast/Agitated Saline Contrast/Ag. Saline: Definity Amount: 5.00 ml Administered By: Angelica Gomes RDCS New IV Access: Inner Forearm and Left Site Condition: No extravasation, Site dressing applied and IV removed Reason for Poor Study: poor echocardiographic windows Summary 1. Left ventricular chamber dimension is moderately enlarged. 2. Definity contrast administered improved wall motion interpretation. 3. Left ventricular systolic function is moderately reduced, estimated at 40-45%. 4. There is mild concentric increased left ventricular wall thickness. 5. The left ventricular diastolic function is grade I diastolic dysfunction. 6. E/e' 8 is minimally elevated. 7. Left atrial chamber dimension is mildly enlarged. 8. There is moderate aortic valve sclerosis. 9. There is mild aortic valve stenosis with a peak velocity of 170.06 cm/s, mean gradient of 5 mmHg, and aortic valve area of 1.66 cm2. 10. There is trace mitral valve regurgitation. 11. Mild pulmonary hypertension, estimated pulmonary arterial systolic pressure is 44 mmHg. Left Ventricle E/e' 8 is minimally elevated. Definity contrast administered improved wall motion interpretation. Left ventricular chamber dimension is moderately enlarged. Left ventricular systolic function is moderately reduced, estimated at 40-45%. There is mild concentric increased left ventricular wall thickness. The left ventricular diastolic function is grade I diastolic dysfunction. Right Ventricle Right ventricular chamber dimension is normal. Right ventricular systolic function is normal. Left Atria Left atrial chamber dimension is mildly enlarged. Right Atria Right atrial chamber dimension is normal. Aortic Valve The aortic valve is trileaflet. There is moderate aortic valve sclerosis. There is mild aortic valve stenosis with a peak velocity of 170.06 cm/s, mean gradient of 5 mmHg, and aortic valve area of 1.66 cm2. There is no aortic valve regurgitation. Pulmonic Valve There is no pulmonic regurgitation. Mitral Valve There is no mitral valve stenosis. There is trace mitral valve regurgitation. Tricuspid Valve There is no tricuspid valve regurgitation. Mild pulmonary hypertension, estimated pulmonary arterial systolic pressure is 44 mmHg. Pericardium/Pleural There is no pericardial effusion. Inferior Vena Cava Normal inferior vena cava with >50% collapse upon inspiration consistent with normal right atrial pressure, 5 mmHg. Aorta The aortic root size at the sinus of Valsalva is normal. Left Ventricular Outflow Tract Name Value Normal
[2023-08-25] MEDS: PERFLUTREN LIPID MICROSPHERES 1.5 ML VIAL DILUTED TO 10 ML TOTAL VOLUME IV PUSH (13:45)
--- NOTE | 2023-08-25 14:01 | IVDEFINITY ---
Prior to administration of IV Definity the patient was educated on the risks and benefits of the imaging enhancing agent including potential adverse side effects. The patient verbalized understanding. Allergies were verified. No exclusion criteria were identified and at least one of the following inclusion criteria were met: 1) physician request, 2) patient technically difficult to image (per the [place] [employer]ocardi[employer] guidelines of two or more segments not discernable within the apical view), or 3) questionable left ventricular function. ?
== END 2023-08-25 12:32 | disposition home or self-care (01) ==
PROVIDERS: PCP Family Medicine; Visit Provider Internal Medicine Cardiovascular Disease
DX: I50.40 Unspecified combined systolic (congestive) and diastolic (congestive) heart failure (principal)
CPT/HCPCS: C8929; Q9957

== ENCOUNTER 2024-01-12 08:26 | Outpatient (CLI) | payer MEDICARE, SELFPAY ==
[2024-01-12 09:22] LABS: Alanine Aminotransferase 26 U/L (6-50); Alkaline Phosphatase 116 U/L (38-126); Anion Gap 3 mmol/L (8-16); Aspartate Amino Transferase 23 U/L (17-59); Blood Urea Nitrogen 15 mg/dL (9-20); Calcium 9.4 mg/dL (8.4-10.2); Carbon Dioxide 30 mmol/L (22-30); Chloride 103 mmol/L (98-107); Cholesterol 139 mg/dL (0-200); Estimated Glomerular Filt Rate > 60; Glucose 138 mg/dL (65-110); HDL Direct 23 mg/dL; Potassium 3.8 mmol/L (3.4-5.0); Sodium 136 mmol/L (137-145); Triglycerides 211 mg/dL (<150)
[2024-01-12 09:33] LABS: LDL Cholesterol Direct 74 mg/dL
[2024-01-12 09:43] LABS: Hemoglobin A1C 6.7 % (<5.7)
[2024-01-12 09:54] LABS: Creatinine Urine 60.5 mg/dL
[2024-01-12 10:25] LABS: MALB Creatinine Ratio 384.8 mg/g (0-30); Microalbumin Urine Random 232.8 mg/L (0-16.7)
== END 2024-01-12 08:27 | disposition home or self-care (01) ==
LOC: ANHLAB 08:30
PROVIDERS: PCP Family Medicine; Visit Provider Family Medicine
DX: E11.9 Type 2 diabetes mellitus without complications (principal)
CPT/HCPCS: 36415; 80053; 80061; 82043; 83036

== ENCOUNTER 2024-02-13 10:42 | Outpatient (CLI) | payer MEDICARE, SELFPAY ==
[2024-02-13 12:06] LABS: Basophils Percent Auto 0.4 % (0.2-1.2); Eosinophils Absolute Auto 0.4 K/mm3 (0-0.3); Eosinophils Percent Auto 4.9 % (0-4.4); Hematocrit 41.9 % (42.0-52.0); Hemoglobin 13.6 g/dL (14.0-18.0); Immature Granulocyte Absolute 0.02 K/mm3 (0.00-0.031); Immature Granulocyte Percent A 0.3 % (0-0.5); Lymphocytes Absolute Auto 1.65 K/mm3 (0.9-3.2); Lymphocytes Percent Auto 22.4 % (18.3-44.2); Mean Corpuscular HGB Conc 32.5 g/dl (32-36); Mean Corpuscular Hemoglobin 30.4 pg (26-34); Mean Corpuscular Volume 93.7 fl (80-100); Mean Platelet Volume 10.9 fl (7.4-10.4); Monocytes Absolute Auto 0.7 K/mm3 (0.1-0.6); Monocytes Percent Auto 9.4 % (2.6-8.5); Neutrophils Absolute Auto 4.6 K/mm3 (1.3-6.7); Neutrophils Percent Auto 62.6 % (45.5-73.1); Platelet Count Result 160 k/mm3 (150-375); Red Blood Count 4.47 M/mm3 (4.6-6.20); Red Cell Distribution Width 14.3 % (11.5-14.5); White Blood Count 7.4 K/mm3 (4.5-10.0)
[2024-02-13 12:33] LABS: Alanine Aminotransferase 30 U/L (6-50); Albumin Level 4.1 g/dL (3.5-5.1); Alkaline Phosphatase 117 U/L (38-126); Anion Gap 7 mmol/L (8-16); Aspartate Amino Transferase 26 U/L (17-59); Bilirubin,Total 0.7 mg/dL (0.2-1.3); Blood Urea Nitrogen 23 mg/dL (9-20); Calcium 9.6 mg/dL (8.4-10.2); Carbon Dioxide 27 mmol/L (22-30); Chloride 104 mmol/L (98-107); Estimated Glomerular Filt Rate 60; Glucose 148 mg/dL (65-110); Lactate Dehydrogenase 170 U/L (120-246); Potassium 3.8 mmol/L (3.4-5.0); Sodium 138 mmol/L (137-145)
[2024-02-16 13:47] LABS: Albumin 3.9 g/dL (3.8-4.8); Alpha 1 Globulin 0.3 g/dL (0.2-0.3); Alpha 2 Globulin 0.6 g/dL (0.5-0.9); Beta 1 Globulin 0.5 g/dL (0.4-0.6); Gamma Globulin 1.2 g/dL (0.8-1.7); Protein, Total 6.9 g/dL (6.1-8.1)
[2024-02-20 06:40] LABS: Creatinine, Random Urine 30 mg/dL (20-320); Total Protein/Creatinine Ratio 433 mg/g creat (25-148)
== END 2024-02-13 10:43 | disposition home or self-care (01) ==
LOC: ANHLAB 10:50
PROVIDERS: PCP Family Medicine; Visit Provider Dermatology
DX: R21 Rash and other nonspecific skin eruption (principal)
CPT/HCPCS: 36415; 80053; 82570; 83615; 84155; 84156; 84165; 84166; 85025

== ENCOUNTER 2025-02-21 12:34 | Outpatient (CLI) | payer MEDICARE, OTHER, SELFPAY ==
--- NOTE | 2025-02-21 12:42 | ECHO_ITS ---
Patient Info Name: Preston Morris Age: 69 years : 1955 Gender: Male Ht: 71 in Wt: 248 lbs BSA: 2.41 m2 HR: 72 bpm BP: 138 / 82 mmHg Heart Rhythm: Sinus Rhythm Technical Quality: Fair Exam Date: 02/21/2025 12:44 PM Exam Location: [facility] Patient Status: Outpatient Admit Date: 02/21/2025 Staff Ordering Physician: Leonides Gruber DO [employer] Rn: Ibis Parker RDCS Attending Provider: Leonides Gruber DO Referring Physician: Yasmani FISH; Exam Type: CA echo doppler color flow Study Info Indications I50.40 - Unspecified combined systolic (congestive) and diastolic (congestive) heart failure Complete two-dimensional, color flow and Doppler transthoracic echocardiogram is performed. Summary 1. Complete two-dimensional, color flow and Doppler transthoracic echocardiogram is performed. 2. Left ventricular chamber dimension is mildly enlarged. 3. Left ventricular systolic function is mildly reduced, estimated at 45-50%. 4. The left ventricular diastolic function is grade I diastolic dysfunction. 5. E/e' 9 is minimally elevated. 6. Left atrial chamber dimension is mildly enlarged. 7. There is moderate aortic valve sclerosis. 8. There is mild aortic valve stenosis with a peak velocity of 159 cm/s, mean gradient of 5 mmHg, and aortic valve area of 1.7 cm2. 9. No pulmonary hypertension, estimated pulmonary arterial systolic pressure is 17 mmHg. Left Ventricle E/e' 9 is minimally elevated. Left ventricular chamber dimension is mildly enlarged. Left ventricular systolic function is mildly reduced, estimated at 45-50%. The left ventricular diastolic function is grade I diastolic dysfunction. Right Ventricle Right ventricular systolic function is normal and with normal TAPSE 1.8 cm. Right ventricular chamber dimension is normal. Left Atria Left atrial chamber dimension is mildly enlarged. Right Atria Right atrial chamber dimension is normal. Aortic Valve The aortic valve is trileaflet. There is moderate aortic valve sclerosis. There is mild aortic valve stenosis with a peak velocity of 159 cm/s, mean gradient of 5 mmHg, and aortic valve area of 1.7 cm2. There is no aortic valve regurgitation. Pulmonic Valve There is no pulmonic regurgitation. Mitral Valve There is no mitral valve stenosis. There is no mitral valve regurgitation. Tricuspid Valve There is no tricuspid valve regurgitation. No pulmonary hypertension, estimated pulmonary arterial systolic pressure is 17 mmHg. Pericardium/Pleural There is no pericardial effusion. Inferior Vena Cava Normal inferior vena cava with >50% collapse upon inspiration consistent with normal right atrial pressure, 5 mmHg. Aorta The aortic root size at the sinus of Valsalva is normal. Left Ventricular Outflow Tract Name Value Normal LVOT 2D LVOT Diameter 2.0 cm LVOT Doppler LVOT Peak Gradient 2 mmHg LVOT Mean Gradient 1 mmHg LVOT VTI 15 cm LVOT VTI/AV VTI Ratio 0.5 LVOT Stroke Volume 51 ml LVOT CO 3.4 l/min LVOT CI 1.4 l/min/m2 Pulmonic Valve Name Value Normal RVOT Doppler RVOT Peak Gradient 2 mmHg PV Doppler PV Peak Gradient 5 mmHg Mitral Valve Name Value Normal MV Doppler MV Decel Rice 469 cm/s2 MV PHT 45 ms MV Area (PHT) 4.9 cm2 4.0-5.0 MV Diastolic Function MV E Peak Velocity 73 cm/s MV A Peak Velocity 111 cm/s MV E/A 0.7 MV Decel Time 156 ms MV Annular TDI MV E/e' (Septal) 11.0 <=8.0 MV E/e' (Lateral) 7.8 <=8.0 MV E/e' (Average) 9.4 Tricuspid Valve Name Value Normal TV Regurgitation Doppler TR Peak Velocity 171 cm/s TR Peak Gradient 12 mmHg Estimated PAP/RSVP RA Pressure 5 mmHg <=5 PA Systolic Pressure 17 mmHg <36 RV Systolic Pressure 17 mmHg <36 Aorta Name Value Normal Ascending Aorta Ao Root Diameter (MM) 3.2 cm Ao Root Diam Index (MM) 1.3 cm/m2 Aortic Valve Name Value Normal AV Doppler AV Peak Velocity 159 cm/s AV Peak Gradient 10 mmHg AV Mean Gradient 5 mmHg AV VTI 29 cm AV Area (Cont Eq VTI) 1.7 cm2 >=3.0 AV Area (Cont Eq Jamie) 1.5 cm2 AV Regurgitation 2D LVOT Area 3.3 cm2 Ventricles Name Value Normal LV Dimensions 2D/MM IVS Diastolic Thickness (2D) 0.9 cm 0.6-1.0 LVID Diastole (2D) 5.6 cm 4.2-5.8 LVIW Diastolic Thickness (2D) 0.9 cm 0.6-1.0 LVID Systole (2D) 4.4 cm 2.5-4.0 LVOT Diameter 2.0 cm LV Mass (2D Cubed) 193.01 g 88.00-224.00 LV Mass Index (2D Cubed) 80 g/m2 49-115 Relative Wall Thickness (2D) 0.33 LV Fractional Shortening/Ejection Fraction 2D/MM LV Fractional Shortening (2D) 21 % 25-43 LV EF (2D Teicholz) 43 % 52-72 LV Diastolic Volume (4C MOD) 104 ml LV EF (4C MOD) 55 % LV Diastolic Volume (2C MOD) 71 ml LV EF (2C MOD) 51 % LV Diastolic Volume (BP MOD) 86 ml 62-150 LV Diastolic Volume Index (BP MOD) 36 ml/m2 34-74 LV Systolic Volume (BP MOD) 42 ml 21-61 LV Systolic Volume Index (BP MOD) 17 ml/m2 11-31 LV EF (BP MOD) 51 % 52-72 LV Diastolic Length (4C) 8.7 cm LV Systolic Length (4C) 7.9 cm LV Stroke Volume (4C MOD) 57 ml Atria Name Value Normal LA Dimensions LA Dimension (MM) 5.0 cm 3.0-4.1 LA Volume (4C A-L) 71 ml LA Volume (BP A-L) 63 ml RA Dimensions RA Area (4C) 12.4 cm2 <=18.0 Report Signatures
[2025-02-21 13:22] LABS: Alanine Aminotransferase 24 U/L (6-50); Albumin Level 4.4 g/dL (3.5-5.1); Alkaline Phosphatase 140 U/L (38-126); Anion Gap 10 mmol/L (4-12); Aspartate Amino Transferase 19 U/L (17-59); Bilirubin,Total 0.7 mg/dL (0.2-1.3); Blood Urea Nitrogen 18 mg/dL (9-20); Calcium 9.7 mg/dL (8.4-10.2); Carbon Dioxide 28 mmol/L (22-30); Chloride 100 mmol/L (98-107); Cholesterol 141 mg/dL (0-200); Estimated Glomerular Filt Rate 58; Glucose 275 mg/dL (65-110); HDL Direct 23 mg/dL; Potassium 3.9 mmol/L (3.4-5.0); Sodium 138 mmol/L (137-145); Triglycerides 253 mg/dL (<150)
[2025-02-21 13:34] LABS: LDL Cholesterol Direct 62 mg/dL
--- OUTSIDE RECORDS SUMMARY | 2025-02-21 13:38 | XMS_ITS | Encounter Summary ---
Author Organization [facility] Address [address] [facility] [place] [address] Care Team Providers Care Licensed Mass Real Estate Appraiser Name Role Phone Unavailable Primary Care Provider Unavailabl e Encounter Details Date Type Department Care Team (Late st Contact Info) Description 01/22/2024 Lab Requisition [facility] Physician [facility] - DermPath Lab [address] [facility], [place] [phone] Cinthia Lawrence DO [address] [facility] 3 [place] [address] Social History Tobacco Use Types Packs/Day Years Used Date Smoking Tobacco: Never Assessed Sex and Gender Information Value Date Recorded Sex Assigned at Not on file Gender Identity Not on file Sexual Orientation Not on file documented as of this encounter Plan of Treatment Not on file documented as of this encounter Procedures Procedure Name Priority Date/Time Associated Diagnosis Comments DERMATOPATHOLOGY Routine 01/22/2024 8:43 AM THERMOSCREW OPERATOR documented in this encounter Results * DERMATOPATHOLOGY (01/22/2024 8:43 AM THERMOSCREW OPERATOR) Case Report Dermatopathology Report Case: [id number] Authorizing Provider: Cinthia Lawrence DO Collected: 01/22/2024 08:43 AM Ordering Location: [facility] Physician [facility] - Received: 01/26/2024 06:45 AM DermPath Lab Pathologist: Chela Nielsen MD Specimen: Skin, right forehead 4:42 PM THERMOSCREW OPERATOR DERMATOPATHOLOGY LABORATORY Final Diagnosis Specimen A. SKIN, right forehead: DERMAL LYMPHOCYTIC INFILTRATE WITH CRUSH ARTIFACT (D48.5) (see microscopic description and comment) 4:42 PM [facility] DERMATOPATHOLOGY LABORATORY Clinical History R/o Follicular Lymphoma 4:42 PM [facility] DERMATOPATHOLOGY LABORATORY Gross Description Specimen A: Received is one formalin filled container labeled with the patient's name and designated right forehead. The specimen consists of a shave biopsy measuring 6x6x1 mm. Jar 0. 4:42 PM [facility] DERMATOPATHOLOGY LABORATORY Microscopic Description Specimen A. SKIN, right forehead: Sections show an unremarkable epidermis from a superficial focally nodular infiltrate by an underlying Grenz zone. The infiltrate is composed of lymphocytoid cells with crush artifact. COMMENT: The prior biopsy [id number] was reviewed in conjunction with this case. If this is a solitary lesion, then this histology is most consistent with a reactive lymphoid process such as cutaneous lymphoid hyperplasia (pseudolymphoma or lymphocytoma cutis). However, the crush artifact of lymphocytes is concerning. Immunohistochemical stains are not preformed since there is only a focal area of dermal lymphocytic infiltrate. Clinical correlation is recommended. 4:42 PM [facility] DERMATOPATHOLOGY LABORATORY Disclaimer An external and internal positive and negative controls are appropriate for the histochemical, immunohistochemical and immunofluorescence stain(s) in this case (if any), except where stated explicitly. The performance characteristics of the stain(s) cited in this report were developed and its performance characteristic determined by the Dermatopathology Laboratory at [facility], directed by Dr. Juanita Nielsen. These tests need not be, and therefore are not, approved by the [place] Food and Drug Administration. The tests are used for clinical purposes. Billing Codes Specimen Charges Stain Charges 18790 1 4:42 PM [facility] DERMATOPATHOLOGY LABORATORY Embedded Images 4:42 PM [facility] DERMATOPATHOLOGY LABORATORY Pathology/Cytolo gy TISSUE SPECIMEN FROM SKIN / Unknown 01/22/2024 8:43 AM THERMOSCREW OPERATOR 01/26/2024 6:45 AM THERMOSCREW OPERATOR Cinthia Lawrence DO LAB - PATHOLOGY/C YTOLOGY ORDERABLES DERMATOPATHOLOGY LABORATORY [facility] - Department of Dermatology [facility] [address] [place] [address], [address] [phone] documented in this encounter Visit Diagnoses Not on filedocumented in this encounter
--- OUTSIDE RECORDS SUMMARY | 2025-02-21 13:38 | XMS_ITS | Encounter Summary ---
Author Organization [facility] Address [address] [facility] [place] [address] Care Team Providers Care Coal Dumping Equipment Operator Name Role Phone Unavailable Primary Care Provider Unavailabl e Encounter Details Date Type Department Care Team (Late st Contact Info) Description 12/11/2023 Lab Requisition [facility] - DermPath Lab [address] [place] [phone] Cinthia Lawrence DO [address] [place] [address] Social History Tobacco Use Types Packs/Day Years Used Date Smoking Tobacco: Never Assessed Sex and Gender Information Value Date Recorded Sex Assigned at Not on file Gender Identity Not on file Sexual Orientation Not on file documented as of this encounter Plan of Treatment Not on file documented as of this encounter Procedures Procedure Name Priority Date/Time Associated Diagnosis Comments DERMATOPATHOLOGY Routine 12/11/2023 10:4 0 AM VOLUMETRIC WEIGHER documented in this encounter Results * DERMATOPATHOLOGY (12/11/2023 10:40 AM VOLUMETRIC WEIGHER) Case Report Dermatopathology Report Case: [id number] Authorizing Provider: Cinthia Lawrence DO Collected: 12/11/2023 10:40 AM Ordering Location: [facility] DermPath Lab Received: 12/12/2023 09:42 AM Pathologist: Meaghan Walker MD Specimen: Skin, right cheek 1:42 PM VOLUMETRIC WEIGHER DERMATOPATHOLOGY LABORATORY Final Diagnosis Specimen A. SKIN, right cheek: DERMAL LYMPHOCYTIC INFILTRATE, SUPERFICIAL PORTIONS OF (D48.5) (see microscopic description and comment) 4 1:42 PM [facility] DERMATOPATHOLOGY LABORATORY Clinical History NMSC vs LLH vs Vascular 1:42 PM [facility] DERMATOPATHOLOGY LABORATORY Gross Description Specimen A: Received is one formalin filled container labeled with the patient's name and designated right cheek. The specimen consists of a shave biopsy measuring 7x7x1 mm. Jar 0. 1:42 PM [facility] DERMATOPATHOLOGY LABORATORY Microscopic Description Specimen A. SKIN, right cheek: Sections show an unremarkable epidermis from a superficial nodular infiltrate by an underlying Grenz zone. The infiltrate is composed of lymphocytoid cells with scattered admixed mononuclear phagocytes. The base of the lesion is not visualized. The hematoxylin and eosin stain is reviewed; immunohistochemical stains are performed to assess for malignancy. CD20 highlights the clusters of lymphocytes with surrounding CD3 positive cells. Bcl2 is positive in the majority of the lymphocytes. Bcl6, CD21 and CD10 are positive in a center of the clusters. Ki67 is positive in scattered cells. CD138 stains scattered plasma cells at the periphery. [place] dual RACHNA demonstrates mixed staining. COMMENT: If this is a solitary lesion, then this histology is favored to represent superficial portions of a reactive lymphoid process such as cutaneous lymphoid hyperplasia (pseudolymphoma or lymphocytoma cutis). However, if this is part of a more diffuse process, a malignant process is clinically suspected or the lesion persists or recurs then consideration should be given to a rebiopsy as a follicular/follicle center lymphoma cannot be excluded in this superficial specimen. The older literature suggests that patients with cutaneous lymphoid hyperplasia may be at increased risk for hematopoietic malignancies. Clinical correlation is recommended. This case was also reviewed by Dr. Denisse Rivera who agrees with the diagnosis. 1:42 PM [facility] DERMATOPATHOLOGY LABORATORY Disclaimer An external and internal positive and negative controls are appropriate for the histochemical, immunohistochemical and immunofluorescence stain(s) in this case (if any), except where stated explicitly. The performance characteristics of the stain(s) cited in this report were developed and its performance characteristic determined by the Dermatopathology Laboratory at [facility], directed by Dr. Juanita Nielsen. These tests need not be, and therefore are not, approved by the [place] Food and Drug Administration. The tests are used for clinical purposes. Billing Codes Specimen Charges Stain Charges 79025 1 25571 39649 12446 47273 07781 92443 52121 75421 73261 1 1 1 1 1 1 1 1 1 4 1:42 PM VOLUMETRIC WEIGHER DERMATOPATHOLOGY LABORATORY Embedded Images 4 1:42 PM VOLUMETRIC WEIGHER DERMATOPATHOLOGY LABORATORY Pathology/Cytolo gy TISSUE SPECIMEN FROM SKIN / Unknown 12/11/2023 10:40 AM VOLUMETRIC WEIGHER 12/12/2023 9:42 AM VOLUMETRIC WEIGHER Cinthia Lawrence DO LAB - PATHOLOGY/C YTOLOGY ORDERABLES DERMATOPATHOLOGY LABORATORY [facility] - Department of Dermatology [facility] Medicine [address] [place] [address], [address] Floor [address] [phone] documented in this encounter Visit Diagnoses Not on filedocumented in this encounter
--- OUTSIDE RECORDS SUMMARY | 2025-02-21 13:38 | XMS_ITS | Clinical Summary ---
Author Organization [facility] Address [address] [place] [address] Care Team Providers Care Coil Connector Repairer Name Role Phone Unavailable Primary Care Provider Unavailabl e Source Comments [facility],non-owned Affiliates and Associated Physician Practices is amultiple site organization consisting of ambulatory clinics and hospital sitesin [place], [place], [place] and [place]. This disclosure is being madepursuant to the Care Everywhere program and may not contain all information available regarding this patient. Last updated 18.[facility] Medications Be aware that medications may not be up to date on this document. Always verify current medications with the patient. No known medications Active Problems No known active problems Immunizations Name Administration Dates Next Due INFLUENZA VACCINE, HIGH-DOSE , QUADR. (FLUZONE HIGH-DOSE QUADRIVALENT; 65Y+), 0.7 ML (HD-IIV4) 08/24/2020 Social History Tobacco Use Types Packs/Day Years Used Date Smoking Tobacco: Never Assessed Sex and Gender Information Value Date Recorded Sex Assigned at Not on file Gender Identity Not on file Sexual Orientation Not on file Last Filed Vital Signs Vital Sign Reading Time Taken Comments Blood Pressure 121/75 05/03/2024 3:49 PM CDT Pulse 72 05/03/2024 3:49 PM CDT Temperature 36.6 C (97.9 F) 05/03/2024 3:49 PM CDT Respiratory Rate - - Oxygen Saturation 97% 05/03/2024 3:49 PM CDT Inhaled Oxygen Concentration - - Weight 106.4 kg (234 lb 8 oz) 05/03/2024 3:49 PM CDT Height - - Body Mass Index - - Plan of Treatment Health Maintenance Due Date Last Done Comments COLOGUARD (AGES 45-75) - COLON CA SCREENING 1954 COLON MONITORING 1954 COLONOSCOPY - COLON CA SCREENING 1954 CT COLONOGRAPHY - COLON CA SCREENING 1954 Colorectal Cancer Screening 1954 FIT - COLON CA SCREENING 1954 FLEX SIG - COLON CA SCREENING 1954 LIPID TESTING 1954 MEDICARE AWV 12 MONTHS 1954 HEPATITIS C SCREENING 08/16/1972 DTAP/TDAP/TD VACCINES (1 - Tdap) 1973 PNEUMOCOCCAL VACCINE 50+ (1 of 1 - PCV) 2004 ZOSTER VACCINE (1 of 2) 2004 COVID-19 VACCINE (5 - season) 2024 08/17/2022, 10/08/2021, 03/08/2021, Additional history exists INFLUENZA VACCINE (#1) 2024 3, 08/17/2022, 09/19/2021, Additional history exists DEPRESSION SCREENING 11/24/2024 Respiratory Syncytial Virus (RSV) Vaccine Pt: or over 60 yrs (1 - 1-dose 75+ series) 2029 HEPATITIS B VACCINE Aged Out No longe r eligible based on patient's age to complete this topic HIB VACCINE Aged Out No longer eligi ble based on patient's age to complete this topic HPV VACCINE Aged Out No longer eligi ble based on patient's age to complete this topic MENINGOCOCCAL (Group B) VACCINE SHARED DECISION-MAKING Aged Out No longer eligible based on patient's age to complete this topic MENINGOCOCCAL GROUPS A/C/Y/W VACCINE Aged Out No longer eligible based on patient's age to complete this topic [id number] [place] [address]
== END 2025-02-21 12:35 | disposition home or self-care (01) ==
LOC: ANHCARD 12:38
PROVIDERS: PCP Family Medicine; Visit Provider Internal Medicine Cardiovascular Disease
DX: E78.5 Hyperlipidemia, unspecified (principal); I50.40 Unspecified combined systolic (congestive) and diastolic (congestive) heart failure
CPT/HCPCS: 36415; 80053; 80061; 93306

== ENCOUNTER 2025-03-07 08:03 | Outpatient (CLI) | payer MEDICARE, SELFPAY ==
--- OUTSIDE RECORDS SUMMARY | 2025-03-07 08:16 | XMS_ITS | Encounter Summary ---
Author Organization [facility] Address [address] [facility] [place] [address] Care Team Providers Care Maintenance Mechanic Supervisor Name Role Phone Unavailable Primary Care Provider Unavailabl e Encounter Details Date Type Department Care Team (Late st Contact Info) Description 12/11/2023 Lab Requisition [facility] - DermPath Lab [address] [facility] [place] [phone] Cinthia Lawrence DO [address] [facility] 3 [place] [address] Social History Tobacco Use Types Packs/Day Years Used Date Smoking Tobacco: Never Assessed Sex and Gender Information Value Date Recorded Sex Assigned at Not on file Legal Sex Male 5:10 AM SENIOR SOFTWARE ARCHITECT Gender Identity Not on file Sexual Orientation Not on file documented as of this encounter Plan of Treatment Not on file documented as of this encounter Procedures Procedure Name Priority Date/Time Associated Diagnosis Comments DERMATOPATHOLOGY Routine 12/11/2023 10:4 0 AM SENIOR SOFTWARE ARCHITECT documented in this encounter Results * DERMATOPATHOLOGY (12/11/2023 10:40 AM SENIOR SOFTWARE ARCHITECT) Case Report Dermatopathology Report Case: [id number] Authorizing Provider: Cinthia Lawrence DO Collected: 12/11/2023 10:40 AM Ordering Location: [facility] DermPath Lab Received: 12/12/2023 09:42 AM Pathologist: Meaghan Walker MD Specimen: Skin, right cheek 1:42 PM SENIOR SOFTWARE ARCHITECT DERMATOPATHOLOGY LABORATORY Final Diagnosis Specimen A. SKIN, right cheek: DERMAL LYMPHOCYTIC INFILTRATE, SUPERFICIAL PORTIONS OF (D48.5) (see microscopic description and comment) 1:42 PM [facility] DERMATOPATHOLOGY LABORATORY Clinical History NMSC vs LLH vs Vascular 4 1:42 PM [facility] DERMATOPATHOLOGY LABORATORY Gross Description Specimen A: Received is one formalin filled container labeled with the patient's name and designated right cheek. The specimen consists of a shave biopsy measuring 7x7x1 mm. Jar 0. 1:42 PM [facility] DERMATOPATHOLOGY LABORATORY Microscopic Description Specimen A. [...] stains scattered plasma cells at the periphery. [place] dual RACHNA demonstrates mixed staining. COMMENT: If [...] who agrees with the diagnosis. 1:42 PM [facility] DERMATOPATHOLOGY LABORATORY Disclaimer An external and internal positive and negative controls are appropriate for the histochemical, immunohistochemical and immunofluorescence stain(s) in this case (if any), except where stated explicitly. The performance characteristics of the stain(s) cited in this report were developed and its performance characteristic determined by the Dermatopathology Laboratory at [facility], directed by Dr. Juanita Nielsen. These tests need not be, and therefore are not, approved by the [place] Food and Drug Administration. The tests are used for clinical purposes. Billing Codes Specimen Charges Stain Charges 25433 1 07893 79463 02541 04830 43820 68789 00263 25438 16119 1 1 1 1 1 1 1 1 1 4 1:42 PM SENIOR SOFTWARE ARCHITECT DERMATOPATHOLOGY LABORATORY Embedded Images 4 1:42 PM SENIOR SOFTWARE ARCHITECT DERMATOPATHOLOGY LABORATORY Pathology/Cytolo gy TISSUE SPECIMEN FROM SKIN / Unknown 12/11/2023 10:40 AM SENIOR SOFTWARE ARCHITECT 12/12/2023 9:42 AM SENIOR SOFTWARE ARCHITECT us Cinthia Lawrence DO LAB - PATHOLOGY/CYTOLOGY ORDERABLES Final Result DERMATOPATHOLOGY LABORATORY [facility] - Department of Dermatology [facility] Medicine [address] [place] [address], [address] Floor [address] [phone] documented in this encounter Visit Diagnoses Not on filedocumented in this encounter
--- OUTSIDE RECORDS SUMMARY | 2025-03-07 08:16 | XMS_ITS | Encounter Summary ---
Author Organization [facility] Address [address] [facility] [place] [address] Care Team Providers Care Gravure Press Set Up Operator Name Role Phone Unavailable Primary Care Provider Unavailabl e Encounter Details Date Type Department Care Team (Late st Contact Info) Description 01/22/2024 Lab Requisition [facility] - DermPath Lab [address] [facility] [place] [phone] Cinthia Lawrence DO [address] [facility] [address] [place] [address] Social History Tobacco Use Types Packs/Day Years Used Date Smoking Tobacco: Never Assessed Sex and Gender Information Value Date Recorded Sex Assigned at Not on file Legal Sex Male 5:10 AM CLINICAL EDUCATION CONSULTANT Gender Identity Not on file Sexual Orientation Not on file documented as of this encounter Plan of Treatment Not on file documented as of this encounter Procedures Procedure Name Priority Date/Time Associated Diagnosis Comments DERMATOPATHOLOGY Routine 01/22/2024 8:4 3 AM CLINICAL EDUCATION CONSULTANT documented in this encounter Results * DERMATOPATHOLOGY (01/22/2024 8:43 AM CLINICAL EDUCATION CONSULTANT) Case Report Dermatopathology Report Case: [id number] Authorizing Provider: Cinthia Lawrence DO Collected: 01/22/2024 08:43 AM Ordering Location: [facility] - Received: 01/26/2024 06:45 AM DermPath Lab Pathologist: Chela Nielsen MD Specimen: Skin, right forehead 4:42 PM CLINICAL EDUCATION CONSULTANT DERMATOPATHOLOGY LABORATORY Final Diagnosis Specimen A. SKIN, right forehead: DERMAL LYMPHOCYTIC INFILTRATE WITH CRUSH ARTIFACT (D48.5) (see microscopic description and comment) 4:42 PM [facility] DERMATOPATHOLOGY LABORATORY Clinical History R/o Follicular Lymphoma 4:42 PM [facility] DERMATOPATHOLOGY LABORATORY Gross Description Specimen A: Received is one formalin filled container labeled with the patient's name and designated right forehead. The specimen consists of a shave biopsy measuring 6x6x1 mm. Jar 0. 4:42 PM [facility] DERMATOPATHOLOGY LABORATORY Microscopic Description Specimen A. SKIN, right forehead: Sections show an unremarkable epidermis from a superficial focally nodular infiltrate by an underlying Grenz zone. The infiltrate is composed of lymphocytoid cells with crush artifact. COMMENT: The prior biopsy [id number] was reviewed in conjunction with this case. If this is a solitary lesion, then this histology is most consistent with a reactive lymphoid process such as cutaneous lymphoid hyperplasia (pseudolymphoma or lymphocytoma cutis). However, the crush artifact of lymphocytes is concerning. Immunohistochemical stains are not preformed since there is only a focal area of dermal lymphocytic infiltrate. Clinical correlation is recommended. 4:42 PM [facility] DERMATOPATHOLOGY LABORATORY Disclaimer An external and internal positive and negative controls are appropriate for the histochemical, immunohistochemical and immunofluorescence stain(s) in this case (if any), except where stated explicitly. The performance characteristics of the stain(s) cited in this report were developed and its performance characteristic determined by the Dermatopathology Laboratory at [facility], directed by Dr. Juanita Nielsen. These tests need not be, and therefore are not, approved by the [place] Food and Drug Administration. The tests are used for clinical purposes. Billing Codes Specimen Charges Stain Charges 28900 1 4:42 PM [facility] DERMATOPATHOLOGY LABORATORY Embedded Images 4:42 PM [facility] DERMATOPATHOLOGY LABORATORY Pathology/Cytolo gy TISSUE SPECIMEN FROM SKIN / Unknown 01/22/2024 8:43 AM CLINICAL EDUCATION CONSULTANT 01/26/2024 6:45 AM CLINICAL EDUCATION CONSULTANT us Cinthia Lawrence DO LAB - PATHOLOGY/CYTOLOGY ORDERABLES Final Result DERMATOPATHOLOGY LABORATORY [facility] - Department of Dermatology [facility] [address] [place] [address], [address] Floor [address] [phone] documented in this encounter Visit Diagnoses Not on filedocumented in this encounter
--- OUTSIDE RECORDS SUMMARY | 2025-03-07 08:16 | XMS_ITS | Clinical Summary ---
Author Organization [facility] [employer] Address [address] [place] [address] Care Team Providers Care Tape Stringer Name Role Phone Unavailable Primary Care Provider Unavailabl e Source Comments [facility] [employer],non-owned Affiliates and Associated Physician Practices is amultiple site organization consisting of ambulatory clinics and hospital sitesin [place], [place], [place] and [place]. This disclosure is being madepursuant to the Care Everywhere program and may not contain all information available regarding this patient. Last updated 18.[employer] Medications * Be aware that medications may not be up to date on this document. Alwaysverify current medications with the patient. No known medications Active Problems No known active problems Immunizations Immunization Administration Dates Next Due INFLUENZA VACCINE, HIGH-DOSE , QUADR. (FLUZONE HIGH-DOSE QUADRIVALENT; 65Y+), 0.7 ML (HD-IIV4) 08/24/2020 Social History Tobacco Use Types Packs/Day Years Used Date Smoking Tobacco: Never Assessed Sex and Gender Information Value Date Recorded Sex Assigned at Not on file Legal Sex Male 5:10 AM CONSULTING PRACTICE DIRECTOR Gender Identity Not on file Sexual Orientation [...] 2024 08/17/2022, 10/08/2021, 03/08/2021, Additional history exists DEPRESSION SCREENING 11/24/2024 INFLUENZA VACCINE (Season Ended) 2025 08/14/2023, 08/17/2022, 09/19/2021, Additional history exists Respiratory Syncytial Virus (RSV) Vaccine Pt: or [...] on patient's age to complete this topic Insurance [facility] MEDICARE [employer] [address] [place] [address] MEDICARE [employer]
== END 2025-03-07 08:04 | disposition home or self-care (01) ==
LOC: ANHAUDASC 08:08
PROVIDERS: PCP Family Medicine; Visit Provider Nurse Practitioner Family
DX: H90.3 Sensorineural hearing loss, bilateral (principal); H61.21 Impacted cerumen, right ear
CPT/HCPCS: 92557; 92567

== ENCOUNTER 2025-10-15 11:19 | Outpatient (CLI) | payer MEDICARE, OTHER, SELFPAY ==
--- OUTSIDE RECORDS SUMMARY | 2025-10-15 11:28 | XMS_ITS | Encounter Summary ---
Author Organization [facility] Address [address] [place] [address] Care Team Providers Care Foot Press Operator Name Role Phone Unavailable Primary Care Provider Unavailabl e Encounter Details Date Type Department Care Team (Late st Contact Info) Description 08/23/2025 Lab Requisition [facility] Physician [facility] - DermPath Lab [address] 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 Gender Identity Not on file Sexual Orientation Not on file documented as of this encounter Plan of Treatment Not on file documented as of this encounter Procedures Procedure Name Priority Date/Time Associated Diagnosis Comments DERMATOPATHOLOGY Routine 08/23/2025 7:15 AM CDT Neoplasm of uncertain behavior of skin documented in this encounter Results * DERMATOPATHOLOGY (08/23/2025 7:15 AM CDT) Case Report Dermatopathology Report [id number]: [id number] Authorizing Provider: Alisha Breaux MD Collected: 08/23/2025 07:15 AM Ordering Location: [facility] Physician [facility] - Received: 08/23/2025 03:57 PM DermPath Lab Pathologist: Chela Nielsen MD Specimen: Skin, right cheek 4:40 PM CDT DERMATOPATHOLOGY LABORATORY Final Diagnosis Specimen A. SKIN, right cheek: SUPERFICIAL PERIVASCULAR LYMPHOCYTIC INFILTRATE (L98.9) (see microscopic description and comment) 4:40 PM T DERMATOPATHOLOGY LABORATORY at 1640 CDT Clinical History Neoplasm of uncertain behavior vs. Recurrent dermal lymphocytic infiltrate 4:40 PM T DERMATOPATHOLOGY LABORATORY Gross Description Specimen A: Received is one formalin filled container labeled with the patient's name and designated right cheek. The specimen consists of a shave biopsy (2 pieces) measuring 10x3x1, 5x2x1 mm. Jar 0. 4:40 PM T DERMATOPATHOLOGY LABORATORY Microscopic Description Specimen A. SKIN, right cheek: In the dermis, there is a perivascular, mainly lymphohistiocytic inflammatory infiltrate. Additional deeper sections were obtained and reviewed. COMMENT: The prior biopsy [id number] was reviewed in conjunction with this case. The degree of lymphocytic inflammation is very sparse compared to the prior biopsy. 4:40 PM T DERMATOPATHOLOGY LABORATORY Disclaimer An external and internal positive and negative controls are appropriate for the histochemical, immunohistochemical and immunofluorescence stain(s) in this case (if any), except where stated explicitly. The performance characteristics of the stain(s) cited in this report were developed and its performance characteristic determined by the Dermatopathology Laboratory at [facility], directed by Dr. Juanita Nielsen. These tests need not be, and therefore are not, approved by the [place] Food and Drug Administration. The tests are used for clinical purposes. Billing Codes Specimen Charges Stain Charges 13554 1 4:40 PM CDT DERMATOPATHOLOGY LABORATORY Embedded Images 4:40 PM CDT DERMATOPATHOLOGY LABORATORY Pathology/Cytolo gy TISSUE SPECIMEN FROM SKIN / Unknown 08/23/2025 7:15 AM CDT 08/23/2025 3:57 PM CDT Alisha Breaux MD LAB - PATHOLOGY/CYTOLOGY OR DERABLES Final Result DERMATOPATHOLOGY LABORATORY [facility] - Department of Dermatology [facility] [address] [facility], [address]rd [address] [phone] documented in this encounter Visit Diagnoses Diagnosis Neoplasm of uncertain behavior of skin documented in this encounter
--- OUTSIDE RECORDS SUMMARY | 2025-10-15 11:28 | XMS_ITS | Encounter Summary ---
Author Organization [facility] Address [address] [facility] [place] [address] Care Team Providers Care Market Relationship Manager Name Role Phone Unavailable Primary Care Provider Unavailabl e Encounter Details Date Type Department Care Team (Late st Contact Info) Description 01/22/2024 Lab Requisition [facility] - DermPath Lab [address] [facility] [place] [phone] Cinthia Lawrence DO [address] [facility] [address] [place] [address] Social History Tobacco Use Types Packs/Day Years Used Date Smoking Tobacco: Never Assessed Sex and Gender Information Value Date Recorded Sex Assigned at Not on file 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 Gender Identity Not on file Sexual Orientation Not on file documented as of this encounter Plan of Treatment Not on file documented as of this encounter Procedures Procedure Name Priority Date/Time Associated Diagnosis Comments DERMATOPATHOLOGY Routine 01/22/2024 8:43 AM CARPENTRY SUPERVISOR documented in this encounter Results * DERMATOPATHOLOGY (01/22/2024 8:43 AM CARPENTRY SUPERVISOR) Case Report Dermatopathology Report Case: [id number] Authorizing Provider: Cinthia Lawrence DO Collected: 01/22/2024 08:43 AM Ordering Location: [facility] - Received: 01/26/2024 06:45 AM DermPath Lab Pathologist: Chela Nielsen MD Specimen: Skin, right forehead 4:42 PM CARPENTRY SUPERVISOR DERMATOPATHOLOGY LABORATORY Final Diagnosis Specimen A. SKIN, right forehead: DERMAL LYMPHOCYTIC INFILTRATE WITH CRUSH ARTIFACT (D48.5) (see microscopic description and comment) 4:42 PM [facility] DERMATOPATHOLOGY LABORATORY at [address] [facility] Clinical History R/o Follicular Lymphoma 4:42 PM [facility] DERMATOPATHOLOGY LABORATORY Gross Description Specimen A: Received is one formalin filled container labeled with the patient's name and designated right forehead. The specimen consists of a shave biopsy measuring 6x6x1 mm. Jar 0. 4:42 PM [facility] DERMATOPATHOLOGY LABORATORY Microscopic Description Specimen A. SKIN, right forehead: Sections show an unremarkable epidermis from a superficial focally nodular infiltrate by an underlying Grenz zone. The infiltrate is composed of lymphocytoid cells with crush artifact. COMMENT: The prior biopsy [id number] was reviewed in conjunction with this case. If this is a solitary lesion, then this histology is most consistent with a reactive lymphoid process such as cutaneous lymphoid hyperplasia (pseudolymphoma or lymphocytoma cutis). However, the crush artifact of lymphocytes is concerning. Immunohistochemical stains are not preformed since there is only a focal area of dermal lymphocytic infiltrate. Clinical correlation is recommended. 4:42 PM [facility] DERMATOPATHOLOGY LABORATORY Disclaimer An external and internal positive and negative controls are appropriate for the histochemical, immunohistochemical and immunofluorescence stain(s) in this case (if any), except where stated explicitly. The performance characteristics of the stain(s) cited in this report were developed and its performance characteristic determined by the Dermatopathology Laboratory at [facility], directed by Dr. Juanita Nielsen. These tests need not be, and therefore are not, approved by the [place] Food and Drug Administration. The tests are used for clinical purposes. Billing Codes Specimen Charges Stain Charges 72260 1 4:42 PM [facility] DERMATOPATHOLOGY LABORATORY Embedded Images 4:42 PM [facility] DERMATOPATHOLOGY LABORATORY Pathology/Cytolo gy TISSUE SPECIMEN FROM SKIN / Unknown 01/22/2024 8:43 AM CARPENTRY SUPERVISOR 01/26/2024 6:45 AM CARPENTRY SUPERVISOR us Cinthia Lawrence DO LAB - PATHOLOGY/CYTOLOGY ORDERABLES Final Result DERMATOPATHOLOGY LABORATORY [facility] - Department of Dermatology [facility] [address] [place] [address], [address] [phone] documented in this encounter Visit Diagnoses Not on filedocumented in this encounter
--- OUTSIDE RECORDS SUMMARY | 2025-10-15 11:28 | XMS_ITS | Encounter Summary ---
Author Organization [facility] Address [address] [facility] [place] [address] Care Team Providers Care Hospitality House Supervisor Name Role Phone Unavailable Primary Care Provider Unavailabl e Encounter Details Date Type Department Care Team (Late st Contact Info) Description 12/11/2023 Lab Requisition [facility] - DermPath Lab [address] [facility], [place] [phone] Cinthia Lawrence DO [address] [facility] [address] [place] [address] Social History Tobacco Use Types Packs/Day Years Used Date Smoking Tobacco: Never Assessed Sex and Gender Information Value Date Recorded Sex Assigned at Not on file 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 Gender Identity Not on file Sexual Orientation Not on file documented as of this encounter Plan of Treatment Not on file documented as of this encounter Procedures Procedure Name Priority Date/Time Associated Diagnosis Comments DERMATOPATHOLOGY Routine 12/11/2023 10:4 0 AM COMMUNITY HEALTH ADVISOR documented in this encounter Results * DERMATOPATHOLOGY (12/11/2023 10:40 AM COMMUNITY HEALTH ADVISOR) Case Report Dermatopathology Report [id number]: [id number] Authorizing Provider: Cinthia Lawrence DO Collected: 12/11/2023 10:40 AM Ordering Location: [facility] DermPath Lab Received: 12/12/2023 09:42 AM Pathologist: Meaghan Walker MD Specimen: Skin, right cheek 1:42 PM COMMUNITY HEALTH ADVISOR DERMATOPATHOLOGY LABORATORY Final Diagnosis Specimen A. SKIN, right cheek: DERMAL LYMPHOCYTIC INFILTRATE, SUPERFICIAL PORTIONS OF (D48.5) (see microscopic description and comment) 4 1:42 PM [facility] DERMATOPATHOLOGY LABORATORY at [address]2 COMMUNITY HEALTH ADVISOR Clinical History [facility] vs [facility] vs Vascular 4 1:42 PM [facility] DERMATOPATHOLOGY LABORATORY Gross Description Specimen A: Received is one formalin filled container labeled with the patient's name and designated right cheek. The specimen consists of a shave biopsy measuring 7x7x1 mm. Jar 0. 1:42 PM [facility] DERMATOPATHOLOGY LABORATORY Microscopic Description Specimen A. [...] stains scattered plasma cells at the periphery. [place] dual RACHNA demonstrates mixed staining. COMMENT: If [...] who agrees with the diagnosis. 1:42 PM [facility] DERMATOPATHOLOGY LABORATORY Disclaimer An external and internal positive and negative controls are appropriate for the histochemical, immunohistochemical and immunofluorescence stain(s) in this case (if any), except where stated explicitly. The performance characteristics of the stain(s) cited in this report were developed and its performance characteristic determined by the Dermatopathology Laboratory at [facility], directed by Dr. Juanita Nielsen. These tests need not be, and therefore are not, approved by the [place] Food and Drug Administration. The tests are used for clinical purposes. Billing Codes Specimen Charges Stain Charges 11571 1 92124 88420 70327 82287 52355 15875 65457 53280 39222 1 1 1 1 1 1 1 1 1 4 1:42 PM COMMUNITY HEALTH ADVISOR DERMATOPATHOLOGY LABORATORY Embedded Images 4 1:42 PM COMMUNITY HEALTH ADVISOR DERMATOPATHOLOGY LABORATORY Pathology/Cytolo gy TISSUE SPECIMEN FROM SKIN / Unknown 12/11/2023 10:40 AM COMMUNITY HEALTH ADVISOR 12/12/2023 9:42 AM COMMUNITY HEALTH ADVISOR us Cinthia Lawrence DO LAB - PATHOLOGY/CYTOLOGY ORDERABLES Final Result DERMATOPATHOLOGY LABORATORY [facility] - Department of Dermatology [facility] Medicine [address] [place] [address], [address] [phone] documented in this encounter Visit Diagnoses Not on filedocumented in this encounter
[2025-10-15 11:48] LABS: Hematocrit 42.1 % (42.0-52.0); Hemoglobin 14.2 g/dL (14.0-18.0); Immature Granulocyte Percent A 0.3 % (0-0.5); Lymphocytes Absolute Auto 1.72 K/mm3 (0.9-3.2); Mean Corpuscular HGB Conc 33.7 g/dl (32-36); Mean Corpuscular Hemoglobin 30.9 pg (26-34); Mean Corpuscular Volume 91.7 fl (80-100); Nucleated Red Blood Cells Absolute Auto 0.000 K/mm3 (0.0-0.012); Nucleated Red Blood Cells Perc 0.0 % (0.0-0.2); Platelet Count Result 161 k/mm3 (150-375); Red Blood Count 4.59 M/mm3 (4.6-6.20); White Blood Count 7.1 K/mm3 (4.5-10.0)
[2025-10-15 12:08] LABS: Alanine Aminotransferase 20 U/L (6-50); Albumin Level 4.2 g/dL (3.5-5.1); Alkaline Phosphatase 102 U/L (38-126); Anion Gap 7 mmol/L (4-12); Aspartate Amino Transferase 21 U/L (17-59); Bilirubin,Total 1.0 mg/dL (0.2-1.3); Blood Urea Nitrogen 21 mg/dL (9-20); Calcium 9.4 mg/dL (8.4-10.2); Carbon Dioxide 27 mmol/L (22-30); Chloride 101 mmol/L (98-107); Estimated Glomerular Filt Rate 53; Glucose 135 mg/dL (65-110); Potassium 4.0 mmol/L (3.4-5.0); Sodium 135 mmol/L (137-145); Total Protein 7.6 g/dL (6.3-8.2)
== END 2025-10-15 11:20 | disposition home or self-care (01) ==
PROVIDERS: PCP Family Medicine
DX: D48.5 Neoplasm of uncertain behavior of skin (principal)
CPT/HCPCS: 36415; 80053; 83615; 85025